=== PATIENT | male | born 1955 | race Caucasian/White ===

== ENCOUNTER 2022-03-13 12:06 | Inpatient (IN) | payer OTHER, SELFPAY ==
[2022-03-13] VITALS (8 sets, daily range): BP systolic 162–193; BP diastolic 68–81; PULSE 75–96; RESP 13–20; TEMP 36.1–37.6; O2SAT 77–96; BMI 41.1
--- NOTE | ~2022-03-13 | XR_ITS ---
EXAMINATION: XR CHEST CLINICAL INFORMATION: Shortness of breath COMPARISON: Previous chest x-ray February 2022 TECHNIQUE: Frontal view of the chest was obtained. FINDINGS: The cardiac silhouette is slightly enlarged but stable. Hilar and mediastinal contours are unremarkable. The lungs are clear. There is no right pleural effusion. There may be a small left pleural effusion. There is no pneumothorax. There is a right jugular dialysis catheter with tip projecting over the SVC. Degenerative changes of the spine. XR/XR chest 1V IMPRESSION: Stable enlargement of the cardiac silhouette. No evidence for acute disease in the chest.
--- NOTE | ~2022-03-13 | XR_ITS ---
EXAMINATION: XR CHEST CLINICAL INFORMATION: Short of breath COMPARISON: None TECHNIQUE: Frontal view of the chest was obtained. FINDINGS: Right-sided central venous catheter overlies the mid SVC. Cardiac leads overlie the chest. The lungs are well expanded. There is no focal consolidation, edema, or effusion. No pneumothorax. The cardiomediastinal silhouette is within normal limits. No acute osseous abnormality. XR/XR chest 1V IMPRESSION: No acute pulmonary disease.
--- NOTE | 2022-03-13 12:26 | ED_ITS ---
HPI - General Adult General Chief complaint: Dyspnea Stated complaint: Diff Breathing Time Seen by Provider: 03/13/22 12:26 Source: patient and EMS Mode of arrival: EMS Limitations: no limitations History of Present Illness HPI narrative: Patient is a 67 year old assigned male at with a history of CKD and right lower leg amputation presenting to the emergency department today with increased difficulty breathing. Patient states that he was getting dialysis through a temporary dialysis port on his right side when 3 weeks ago, they stopped it. 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 Patient states that he has been taking his medications as perscribed. Patient states that he has been having increased shortness of breath. Patient denies any dizziness, lightheadedness, abdominal pain, nausea, vomiting, fever, chills, blurry vision, double vision, loss of vision, chest pain, back pain, night sweats, pain with urination, increased urinary frequency, increased urinary urgency, blood in his urine or stool, syncope or a near syncopal episode, recent trauma or falls, bowel incontinence, bladder incontinence, bowel retention, bladder retention, or any other complaints at this time. Onset (ago): day(s) Severity: moderate Severity scale (1-10): 4 Relieving factors: none Exacerbating factors: none Associated symptoms: shortness of breath Treatments prior to arrival: none Related Data Home Medications Medication Instructions Recorded Confirmed albuterol sulfate 90 mcg/actuation 2 inh inhalation Q4H PRN Wheezing 03/13/22 03/13/22 aerosol inhaler aspirin 81 mg tablet,delayed 1 tab PO DAILY 03/13/22 03/13/22 release atorvastatin 40 mg tablet 1 tab PO DAILY 03/13/22 03/13/22 buprenorphine 10 mcg/hour weekly 1 patch topical QWEEK 03/13/22 03/13/22 transdermal patch carvedilol 25 mg tablet 1 tab PO BID 03/13/22 03/13/22 cetirizine 10 mg tablet 1 tab PO DAILY 03/13/22 03/13/22 cholecalciferol (vitamin D3) 25 1 tab PO DAILY 03/13/22 03/13/22 mcg (1,000 unit) tablet clonidine HCl 0.1 mg tablet 1 tab PO TID 03/13/22 03/13/22 clotrimazole-betamethasone 1 1 appl topical BID 03/13/22 03/13/22 %-0.05 % topical cream dapsone 100 mg tablet 1 tab PO DAILY 03/13/22 03/13/22 duloxetine 30 mg capsule,delayed 1 cap PO DAILY 03/13/22 03/13/22 release ferrous sulfate 325 mg (65 mg 325 mg PO TID 03/13/22 03/13/22 iron) tablet (FeroSul) fluticasone propionate 50 1 spray intranasal DAILY 03/13/22 03/13/22 mcg/actuation nasal spray,suspension hydralazine 25 mg tablet 1 tab PO TID 03/13/22 03/13/22 insulin aspart U-100 100 unit/mL See Rx Instructions .Route .COMPLEX 03/13/22 03/13/22 (3 mL) subcutaneous pen (Novolog Flexpen U-100 Insulin aspart) insulin glargine 100 unit/mL (3 50 unit subcut DAILY 03/13/22 03/13/22 mL) subcutaneous pen (Lantus Solostar U-100 Insulin) ipratropium 0.5 mg-albuterol 3 mg 3 ml inhalation QID 03/13/22 03/13/22 (2.5 mg base)/3 mL nebulization soln isosorbide mononitrate 30 mg 1 tab PO DAILY 03/13/22 03/13/22 tablet,extended release 24 hr multivitamin 1 tab PO DAILY 03/13/22 03/13/22 omeprazole 20 mg capsule,delayed 1 cap PO DAILY 03/13/22 03/13/22 release prednisone 5 mg tablet 12.5 mg PO DAILY 03/13/22 03/13/22 sacubitril 49 mg-valsartan 51 mg 1 tab PO BID 03/13/22 03/13/22 tablet (Entresto) sennosides 8.6 mg-docusate sodium 1 tab PO BEDTIME 03/13/22 03/13/22 50 mg tablet (Senna-S) sitagliptin phosphate 25 mg tablet 1 tab PO DAILY 03/13/22 03/13/22 (Januvia) tamsulosin 0.4 mg capsule 1 cap PO DAILY 03/13/22 03/13/22 torsemide 100 mg tablet 1 tab PO DAILY 03/13/22 03/13/22 Allergies Allergy/AdvReac Type Severity Reaction Status Date / Time Unable to Assess Allergy Verified 03/13/22 12:27 Review of Systems Constitutional: Constitutional: Reports no additional constitutional complaints, Denies chills, Denies fever(s) and Denies night sweats Eyes: Eyes: Reports no additional eye complaints, Denies blurry vision, Denies change in vision, Denies diplopia, Denies eye discharge, Denies loss of vision and Denies eye pain ENT: Denies dizziness Cardiovascular: Cardiovascular: Reports no additional cardiovascular complaints, Denies chest pain, Denies lightheadedness, Denies Loss of Consciousness and Reports dyspnea Respiratory: Respiratory: Reports no additional respiratory complaints and Reports dyspnea Gastrointestinal: Gastrointestinal: Reports no additional gastrointestinal complaints, Denies abdominal pain, Denies melena, Denies hematochezia, Denies change in bowel habits and Denies change in stool character Genitourinary: Genitourinary: Reports no additional male genitourinary complaints, Denies hematuria, Denies oliguria, Denies difficulty urinating, Denies dysuria, Denies urinary frequency, Denies urinary hesitancy, Denies urinary incontinence and Denies urinary urgency Musculoskeletal: Musculoskeletal: Reports no additional musculoskeletal complaints, Denies numbness and Denies tingling Comments: right lower leg amputation Neurologic: Denies dizziness, Denies loss of vision, Denies numbness and Denies tingling Psychiatric: Psychiatric: Reports no additional psychiatric complaints Endocrine: Endocrine: Reports no additional endocrine complaints Hematologic/Lymphatic: Hematologic/Lymphatic: Reports no additional hematologic/lymphatic complaints Allergic/Immunologic: Allergic/Immunologic: Reports no additional allergic/immunologic complaints PMFSH Past Medical History Attestation statement: The following information was validated with the patient. Source: old records reviewed and nursing notes reviewed Medical History (Updated 03/13/22 @ 17:32 by DAWNA Gibbs) Amputated right leg CVA (cerebral vascular accident) Diabetes mellitus HFrEF (heart failure with reduced ejection fraction) History of benign adrenal tumor History of cocaine abuse History of COVID-19 Hypertension Low back pain Nonischemic cardiomyopathy Obstructive sleep apnea syndrome Psoriasis Tobacco dependence Surgical History (Updated 03/13/22 @ 16:39 by Wallace Fischer MD) H/O partial adrenalectomy Status post Elise procedure Family History Family History (Updated 03/13/22 @ 17:26 by Wallace Fischer MD) Father Myocardial infarction Social History Social History Alcohol intake: unknown Smoked in Last 30 Days: No Use of substances other than those prescribed or required for medical reasons: No Advance Directives: No Advance Directives Information Provided: Yes Physical Exam ED Vital Signs: Vital Signs - 24 hr 03/13/22 12:21 03/13/22 12:54 03/13/22 13:02 Temperature 99.6 F 99.0 F Pulse Rate 83 88 Respiratory Rate 18 16 17 Blood Pressure 162/75 H 162/75 H Pulse Oximetry 91 L 91 L Oxygen Delivery Method Room Air Room Air Oxygen Flow Rate 03/13/22 15:00 Temperature Pulse Rate 78 Respiratory Rate 16 Blood Pressure 162/80 H Pulse Oximetry 94 Oxygen Delivery Method Nasal Cannula Oxygen Flow Rate 1 BMI result Body Mass Index 41.1 Const General: cooperative, no acute distress, alert and awake Nutritional Appearance: well nourished Orientation/consciousness: patient oriented x3 Limitations: no limitations HENMT Head: Yes normal to inspection and Yes atraumatic Ears: hearing grossly normal bilaterally and external ears normal General nose exam: Normal external nose present, no nasal discharge noted and no epistaxis Face and sinus: Yes normal facial exam, No abrasion and No laceration Mouth: Normal oral and palatal mucosa present, no drooling and no muffled voice Eyes General: appearance normal, both eyes and all related structures Periorbital: periorbital findings normal Eyelids: Yes eyelids normal Conjunctivae: conjunctivae normal Pupils: Equal, round and reactive pupils present EOM: EOMs intact bilaterally Neck Neck: Yes normal visual inspection, Yes full ROM and Yes no lymphadenopathy Chest Chest palpation & inspection: normal inspection of the chest Resp Effort & Inspection: able to speak in complete sentences and labored Auscultation: rhonchi throughout Cardio Rate: regular rate Rhythm: regular rhythm GI Inspection: Yes normal to inspection Palpation (GI): Soft to palpation, not firm, nontender, no guarding and not rigid Neuro General: patient oriented x3 and moves all extremities Cranial nerves: Yes Equal, round and reactive pupils present Cognition (Neuro): normal cognition Motor exam (neuro): 5/5 motor strength present throughout Sensory Exam: Normal double simultaneous stimulation for sensation Coordination: [id number] test normal Extrem Other: patient has right below knee amputation Psych Appearance: grossly normal Mental Status: mental status grossly normal Affect: normal affect Attitude: cooperative Thought process: Normal thought process present Thought content: Normal thought content present Insight: Good insight present (Psych) Medications Administered Discontinued Medications Generic Name Dose Route Start Last Admin Trade Name Crow PRN Reason Stop Dose Admin Acetaminophen 650 mg 03/13/22 12:27 03/13/22 14:45 Acetaminophen 325 Mg Tablet PO 03/13/22 12:28 Not Given ONCE ONE Furosemide 60 mg 03/13/22 12:32 03/13/22 13:17 Furosemide 100 Mg/10 Ml Vial IVPUSH 03/13/22 12:33 60 mg ONCE ONE Administration Protocol Medical Decision Making Medical Decision Making MDM Narrative: Patient is a 67 year old assigned male at with a history of CKD presenting to the emergency department today with shortness of breath. Patient's physical exam showed an individual in mild respiratory distress with diffuse rhonci. Patient's blood work showed an elevated d dimer of 605, an elevated initial troponin of 74.4 with a repeat of 70.7, an elevated CR of 2.78, and an elevated BUN of 48. Patient's EKG was unremarkable. Patient's chest x-ray and VQ scan showed no acute process. Patient was initially placed on BiPaP and after 1 hour, he was doing significantly better. Patient was placed on 2LPM via NC. Patient was given IV lasix. I spoke to the hospitalist team who agreed to admission. I explained my physical exam findings as well as all test results to the patient. I answered all questions asked by the patient. Patient verbalized agreement and understanding with this treatment plan and admission. Differential Diagnosis Differential Diagnoses: The differential diagnosis associated with the presentation includes CHF exacerbation, SOB Consult Healthcare Provider Management of the patient was discussed with: Hospitalist (agreed to admission) Lab Data [facility] Lab Attestation statement: I reviewed the patient's lab results. Result Diagrams: 03/13/22 13:03 03/13/22 13:03 Labs: Lab Results 03/13/22 03/13/22 03/13/22 Range/Units 12:44 13:02 13:03 WBC 9.8 (4.8-10.8) X10*3/uL RBC 3.16 L (4.60-5.80) X10*6/uL Hgb 9.5 L (14.0-18.0) g/dl Hct 29.8 L (42.0-52.0) % MCV 94.3 (80.0-98.0) fL MCH 30.1 (27.0-33.0) pg MCHC 31.9 (31.0-36.0) g/dl RDW 14.9 (11.0-16.0) % Plt Count 196 (160-400) X10*3/uL MPV 11.8 (9.4-12.4) fL Immature Gran % (Auto) 0.8 H (0.0-0.4) % Neut % (Auto) 86.1 H (45-73) % Lymph % (Auto) 7.2 L (20-40) % [place] % (Auto) 5.6 (2-11) % Eos % (Auto) 0.0 (0-4) % Baso % (Auto) 0.3 (0-2) % Lymph # (Auto) 0.7 L (1.2-4.9) X10*3/uL [place] # (Auto) 0.6 (0.1-1.2) X10*3/uL Eos # (Auto) 0.0 (0.0-0.4) X10*3/uL Baso # (Auto) 0.0 (0.0-0.2) X10*3/uL Abs Immat Gran (auto) 0.08 H (0.00-0.03) X10*3/uL Absolute Neuts (auto) 8.5 H (2.0-8.3) x10*3/uL Absolute Nucleated RBC 0.000 (0.0-0.012) X10*3/uL Nucleated RBC % (auto) 0.0 (0.0-0.2) /100WBC D-Dimer High Sensitivty NG/ML VBG pH (7.32-7.43) VBG pCO2 mmHg VBG pO2 mmHg VBG HCO3 (22-26) mmol/L VBG O2 Saturation % VBG Base Excess mmol/L Sodium (135-145) mmol/L Potassium (3.3-5.1) mmol/L Chloride (96-108) mmol/L Carbon Dioxide (22-29) mmol/L Anion Gap (12-20) BUN (9-16) mg/dL Creatinine (0.5-1.4) mg/dL Estim Creat Clear Calc Estimated GFR Random Glucose (60-115) mg/dL Lactic Acid 1.6 (0.5-2.0) mmol/L Calcium (8.4-10.2) mg/dL Total Bilirubin (0.0-1.0) mg/dL AST (5-37) U/L ALT (0-40) U/L Alkaline Phosphatase (39-117) U/L Troponin I High Sens (<3.5-35.0) ng/L B-Natriuretic Peptide (<100) pg/mL Total Protein (6.5-8.0) g/dL Albumin (3.5-5.0) g/dL Influenza Type A (PCR) NEGATIVE (Negative) Influenza Type B (PCR) NEGATIVE (Negative) RSV RNA Qual (PCR) NEGATIVE (Negative) SARS-CoV-2 RNA (RT-PCR) NEGATIVE (Negative) 03/13/22 03/13/22 03/13/22 Range/Units 13:03 13:03 13:04 WBC (4.8-10.8) X10*3/uL RBC (4.60-5.80) X10*6/uL Hgb (14.0-18.0) g/dl Hct (42.0-52.0) % MCV (80.0-98.0) fL MCH (27.0-33.0) pg MCHC (31.0-36.0) g/dl RDW (11.0-16.0) % Plt Count (160-400) X10*3/uL MPV (9.4-12.4) fL Immature Gran % (Auto) (0.0-0.4) % Neut % (Auto) (45-73) % Lymph % (Auto) (20-40) % [place] % (Auto) (2-11) % Eos % (Auto) (0-4) % Baso % (Auto) (0-2) % Lymph # (Auto) (1.2-4.9) X10*3/uL [place] # (Auto) (0.1-1.2) X10*3/uL Eos # (Auto) (0.0-0.4) X10*3/uL Baso # (Auto) (0.0-0.2) X10*3/uL Abs Immat Gran (auto) (0.00-0.03) X10*3/uL Absolute Neuts (auto) (2.0-8.3) x10*3/uL Absolute Nucleated RBC (0.0-0.012) X10*3/uL Nucleated RBC % (auto) (0.0-0.2) /100WBC D-Dimer High Sensitivty 369 NG/ML VBG pH (7.32-7.43) VBG pCO2 mmHg VBG pO2 mmHg VBG HCO3 (22-26) mmol/L VBG O2 Saturation % VBG Base Excess mmol/L Sodium 144 (135-145) mmol/L Potassium 3.7 (3.3-5.1) mmol/L Chloride 104 (96-108) mmol/L Carbon Dioxide 29 (22-29) mmol/L Anion Gap 15 (12-20) BUN 48 H (9-16) mg/dL Creatinine 2.79 H (0.5-1.4) mg/dL Estim Creat Clear Calc 30.5 Estimated GFR 23 Random Glucose 154 H (60-115) mg/dL Lactic Acid (0.5-2.0) mmol/L Calcium 9.2 (8.4-10.2) mg/dL Total Bilirubin 0.3 (0.0-1.0) mg/dL AST 12 (5-37) U/L ALT 14 (0-40) U/L Alkaline Phosphatase 69 (39-117) U/L Troponin I High Sens 74.4 H (<3.5-35.0) ng/L B-Natriuretic Peptide (<100) pg/mL Total Protein 6.1 L (6.5-8.0) g/dL Albumin 3.3 L (3.5-5.0) g/dL Influenza Type A (PCR) (Negative) Influenza Type B (PCR) (Negative) RSV RNA Qual (PCR) (Negative) SARS-CoV-2 RNA (RT-PCR) (Negative) 03/13/22 03/13/22 03/13/22 Range/Units 13:05 13:09 15:13 WBC (4.8-10.8) X10*3/uL RBC (4.60-5.80) X10*6/uL Hgb (14.0-18.0) g/dl Hct (42.0-52.0) % MCV (80.0-98.0) fL MCH (27.0-33.0) pg MCHC (31.0-36.0) g/dl RDW (11.0-16.0) % Plt Count (160-400) X10*3/uL MPV (9.4-12.4) fL Immature Gran % (Auto) (0.0-0.4) % Neut % (Auto) (45-73) % Lymph % (Auto) (20-40) % [place] % (Auto) (2-11) % Eos % (Auto) (0-4) % Baso % (Auto) (0-2) % Lymph # (Auto) (1.2-4.9) X10*3/uL [place] # (Auto) (0.1-1.2) X10*3/uL Eos # (Auto) (0.0-0.4) X10*3/uL Baso # (Auto) (0.0-0.2) X10*3/uL Abs Immat Gran (auto) (0.00-0.03) X10*3/uL Absolute Neuts (auto) (2.0-8.3) x10*3/uL Absolute Nucleated RBC (0.0-0.012) X10*3/uL Nucleated RBC % (auto) (0.0-0.2) /100WBC D-Dimer High Sensitivty NG/ML VBG pH 7.46 H (7.32-7.43) VBG pCO2 39 mmHg VBG pO2 89 mmHg VBG HCO3 28 H (22-26) mmol/L VBG O2 Saturation 95.0 % VBG Base Excess 4.3 mmol/L Sodium (135-145) mmol/L Potassium (3.3-5.1) mmol/L Chloride (96-108) mmol/L Carbon Dioxide (22-29) mmol/L Anion Gap (12-20) BUN (9-16) mg/dL Creatinine (0.5-1.4) mg/dL Estim Creat Clear Calc Estimated GFR Random Glucose (60-115) mg/dL Lactic Acid (0.5-2.0) mmol/L Calcium (8.4-10.2) mg/dL Total Bilirubin (0.0-1.0) mg/dL AST (5-37) U/L ALT (0-40) U/L Alkaline Phosphatase (39-117) U/L Troponin I High Sens 70.7 H (<3.5-35.0) ng/L B-Natriuretic Peptide 605 H (<100) pg/mL Total Protein (6.5-8.0) g/dL Albumin (3.5-5.0) g/dL Influenza Type A (PCR) (Negative) Influenza Type B (PCR) (Negative) RSV RNA Qual (PCR) (Negative) SARS-CoV-2 RNA (RT-PCR) (Negative) Independent Interpretation I performed an independent interpretation of an: EKG Interpretation: Vent. Rate: 076 BPM ? ? Atrial Rate: 076 BPM P-R Int: 140 ms? QRS Dur: 084 ms QT Int: 402 ms ? ? ? P-R-T Axes: 058 018 164 degrees QTc Int: 452 ms ? Normal sinus rhythm T wave abnormality, consider lateral ischemia Abnormal ECG No previous ECGs available DD/ 1311 Radiology Impression Discussion of test interpretation with radiology: I have reviewed the radiolo gist's reading. Radiologist Impression: EXAMINATION: NM LUNG IMAGE PERFUSION CLINICAL INFORMATION: Shortness of breath, dyspnea COMPARISON: Chest x-ray same day TECHNIQUE: Perfusion only lung study. 4 mCi technetium MAA injected intravenously. Images obtained in various obliquities over the lung iqbal. FINDINGS: Fairly uniform uptake of the radionucleotide in the lungs. Only mildly heterogeneous uptake. Diminished uptake on the left mid to anterior is likely cardiac impression NM/NM pul perfusion IMPRESSION: Only mildly heterogeneous uptake without segmental defect. Findings consistent with low probability for pulmonary embolism. Dictated By: Jonathan Pa MD Signed By: Electronically signed by Jonathan Pa MD 03/13/22 [id number] EXAMINATION: XR CHEST CLINICAL INFORMATION: Short of breath COMPARISON: None TECHNIQUE: Frontal view of the chest was obtained. FINDINGS: Right-sided central venous catheter overlies the mid SVC. Cardiac leads overlie the chest. The lungs are well expanded. There is no focal consolidation, edema, or effusion. No pneumothorax. The cardiomediastinal silhouette is within normal limits. No acute osseous abnormality. XR/XR chest 1V IMPRESSION: No acute pulmonary disease. Dictated By: Cole Capps MD Signed By: Electronically signed by Cole Capps MD 03/13/22 1359 Critical Care Time Critical Care Time Critical Care Time: Yes Total Critical Care Time: 30 Attestation: I spent 30 minutes of Critical Care Time with this patient. This does not include time spent on separately reported billable procedures. Discharge Plan Discharge Clinical Impression: CKD (chronic kidney disease), Elevated brain natriuretic peptide (BNP) level, Breath shortness Patient Disposition: Admitted As Inpatient
--- NOTE | 2022-03-13 12:27 | ECG_ITS ---
Test Reason : DYSPNEA Blood Pressure : / mmHG Vent. Rate : 076 BPM Atrial Rate : 076 BPM P-R Int : 140 ms QRS Dur : 084 ms QT Int : 402 ms P-R-T Axes : 058 018 164 degrees QTc Int : 452 ms Normal sinus rhythm T wave abnormality, consider lateral ischemia Abnormal ECG No previous ECGs available Referred By: Ruth Martinez Electronically Signed By:Jose Angel Patterson
[2022-03-13 13:11] LABS: MANUAL DIFF FLAG NO
[2022-03-13 13:12] LABS: Venous Blood Gas Refer to POC result
[2022-03-13 13:15] LABS: VBG Base Excess 4.3 mmol/L; VBG HCO3 28 mmol/L (22-26); VBG pCO2 39 mmHg; VBG pH 7.46 (7.32-7.43); VBG pO2 89 mmHg
[2022-03-13] MEDS: Furosemide 100 MG/10 ML VIAL 60 MG IVPUSH ×2 (13:17→17:51)
[2022-03-13 13:18] LABS: Basophils Percent Auto 0.3 % (0-2); Hematocrit 29.8 % (42.0-52.0); Hemoglobin 9.5 g/dl (14.0-18.0); Imm Gran Abs Auto 0.08 X10*3/uL (0.00-0.03); Imm Gran Pct Auto 0.8 % (0.0-0.4); Lymphocytes Absolute Auto 0.7 X10*3/uL (1.2-4.9); Lymphocytes Percent Auto 7.2 % (20-40); Mean Corpuscular HGB Conc 31.9 g/dl (31.0-36.0); Mean Corpuscular Hemoglobin 30.1 pg (27.0-33.0); Mean Corpuscular Volume 94.3 fL (80.0-98.0); Mean Platelet Volume 11.8 fL (9.4-12.4); Monocytes Absolute Auto 0.6 X10*3/uL (0.1-1.2); Monocytes Percent Auto 5.6 % (2-11); Neutrophils Absolute Auto 8.5 x10*3/uL (2.0-8.3); Neutrophils Percent Auto 86.1 % (45-73); Platelet Count 196 X10*3/uL (160-400); Red Blood Count 3.16 X10*6/uL (4.60-5.80); Red Cell Distribution Width 14.9 % (11.0-16.0); White Blood Count 9.8 X10*3/uL (4.8-10.8)
[2022-03-13 13:23] LABS: D Dimer High Sensitivity 369 NG/ML
[2022-03-13 13:30] LABS: Lactic Acid 1.6 mmol/L (0.5-2.0)
[2022-03-13 13:31] LABS: Alanine Aminotransferase 14 U/L (0-40); Albumin Level 3.3 g/dL (3.5-5.0); Alkaline Phosphatase 69 U/L (39-117); Anion Gap 15 (12-20); Aspartate Amino Transferase 12 U/L (5-37); Bilirubin Total 0.3 mg/dL (0.0-1.0); Blood Urea Nitrogen 48 mg/dL (9-16); Calcium 9.2 mg/dL (8.4-10.2); Carbon Dioxide 29 mmol/L (22-29); Chloride 104 mmol/L (96-108); Creatinine Clr Calc Pharmacy 30.5; Estimated Glomerular Filt Rate 23; Glucose Random 154 mg/dL (60-115); Potassium 3.7 mmol/L (3.3-5.1); Sodium 144 mmol/L (135-145); Total Protein 6.1 g/dL (6.5-8.0)
[2022-03-13 13:33] LABS: Influenza A PCR NEGATIVE (Negative); Influenza B PCR NEGATIVE (Negative); Resp Syncy Virus RNA Qual PCR NEGATIVE (Negative); SARS COV2 PCR INHOUSE NEGATIVE (Negative)
--- NOTE | 2022-03-13 13:35 | PC.NURSE ---
patient lethargic, c/o shortness of breath with no obvious signs of increased WOB. reports he has not had dialysis in three weeks. placed on BiPAP and given IVP lasix. will continue to monitor resp status.
[2022-03-13 13:40] LABS: Troponin-I High Sensitivity 74.4 ng/L (<3.5-35.0)
[2022-03-13 14:15] LABS: B Type Natriuretic Peptide 605 pg/mL (<100)
--- NOTE | 2022-03-13 15:24 | PHA.MEDREC ---
Pharmacy Consult ? Medication Reconciliation Pharmacy has completed the medication reconciliation.
--- OUTSIDE RECORDS SUMMARY | 2022-03-13 15:30 | XMS_ITS | Continuity of Care Document ---
:1955 Demographics Address [address] [place] [address]
--- NOTE | 2022-03-13 15:41 | PC.NURSE ---
report received from SELINA Cole. Pt is currently resting on stretcher satting 94% on 1 liter nasal cannula. Pt reports his breathing has improved since arriving but he does not feel he is at his baseline. awaiting second troponin at this time
[2022-03-13 15:47] LABS: Troponin-I High Sensitivity 70.7 ng/L (<3.5-35.0)
--- NOTE | 2022-03-13 16:38 | PM.IMHP ---
History of Present Illness Date of Service: 03/13/22 Chief Complaint: dyspnea 67yo M with HTN, HFrEF, NICM, DM2, DM foot infection s/p R BKA, hx CVA, BLANCO not on CPAP, and psoriasis. He was on HD for approximately 2 months and this was stopped 3 weeks ago. His primary octave board assembler is Haroldo Carreno at [facility] [facility]. He presents to the ED today with 2-3 days of worsening dyspnea along with leg swelling and abdominal swelling. In the ED, he was struggling to breathe and was thus placed on BiPAP for one hour. Initial SaO2 was 91%. He is currently on 1L of O2 via NC and SaO2 is 95%. He was given 60 mg of IV furosemide. V/Q scan showed low probability for pulmonary embolism. BUN/Cr was 48/2.79. BNP 605. He denies fever, cough, productive sputum, or chest pain. He has been adherent with his CHF medications, including bumetanide, Entresto, and carvedilol. Review of Systems Review of Systems: Yes all other systems are reviewed and are negative FOR[facility]LY [facility], [facility] Medical History Amputated right leg CVA (cerebral vascular accident) Diabetes mellitus HFrEF (heart failure with reduced ejection fraction) History of benign adrenal tumor History of cocaine abuse History of COVID-19 Hypertension Low back pain Nonischemic cardiomyopathy Obstructive sleep apnea syndrome Psoriasis Tobacco dependence Family History Father Myocardial infarction Surgical History H/O partial adrenalectomy Status post Elise procedure Social History Alcohol intake: unknown Smoked in Last 30 Days: No Use of substances other than those prescribed or required for medical reasons: No Advance Directives: No Advance Directives Information Provided: Yes Meds Allergies Allergy/AdvReac Type Severity Reaction Status Date / Time Unable to Assess Allergy Verified 03/13/22 12:27 Active Medications: Current Medications Albuterol Sulfate (Albuterol Sulfate 90 Mcg 8 Gm Inhaler) 2 puff INHALE Q4H PRN PRN Reason: Wheezing Albuterol/Ipratropium (Albuterol/Iprat 2.5/0.5mg 3 Ml Ampul.Neb) 3 ml INHALE QID [facility] Aspirin (Aspirin Enteric Coated 81 Mg Tablet.) 81 mg PO DAILY [facility] Atorvastatin Calcium (Atorvastatin Calcium 40 Mg Tablet) 40 mg PO DAILY [facility] Carvedilol (Carvedilol 25 Mg Tablet) 25 mg PO BID [facility]; Protocol Clonidine HCl (Clonidine Hcl 0.1 Mg Tablet) 0.1 mg PO TID [facility]; Protocol Dapsone (Dapsone 25 Mg Tablet) 100 mg PO DAILY [facility] Dextrose (Dextrose 50 % 25 Gm/50 Ml Syringe) 25 gm IVPUSH Q15M PRN; Protocol PRN Reason: per Hypoglycemia Standing Ord. Duloxetine HCl (Duloxetine Hcl 30 Mg Capsule.) 30 mg PO DAILY [facility] Fluticasone Propionate (Fluticasone Propionate Nasal 16 Gm [place]) 1 spray NOSTRIL-B DAILY [facility] Glucose (Glucose Gel 15 Gm Gel..Gram.) 15 gm PO Q15M PRN; Protocol PRN Reason: per Hypoglycemia Standing Ord. Hydralazine HCl (Hydralazine Hcl 25 Mg Tablet) 25 mg PO TID [facility]; Protocol Insulin Glargine (Insulin Glargine,Hum.Rec.Anlog 100 Unit/Ml 10 Ml Vial) 50 unit SUBCUT DAILY [facility] Insulin Human Lispro (Insulin Lispro 100 Unit/Ml 3 Ml Vial) 0 unit SUBCUT QIDACHS [facility]; Protocol Isosorbide Mononitrate (Isosorbide Mononitrate 30 Mg Tab.Er.24h) 30 mg PO DAILY [facility]; Protocol Loratadine (Loratadine 10 Mg Tablet) 10 mg PO DAILY [facility] Multivitamins/Vitamin C (Multivitamin Tablet) 1 tab PO DAILY [facility] Non-Formulary Medication (Buprenorphine) 1 patch TOPICAL QWEEK [facility] Non-Formulary Medication (Clotrimazole-Betamethasone) 1 appl TOPICAL BID [facility] Non-Formulary Medication (Ferrous Sulfate [Ferosul]) 325 mg PO TID [facility] Omeprazole (Omeprazole 20 Mg Capsule.) 20 mg PO DAILY [facility] Pharmacy Consult (Consult Rx Perform Med Rec) 1 each MISCELLANE ONCE PRN PRN Reason: probable admission Prednisone (Prednisone 2.5 Mg Tablet) 12.5 mg PO DAILY [facility] Sacubitril/Valsartan (Sacubitril/Valsartan 49/51 1 Tab Tablet) 1 tab PO BID [facility]; Protocol Senna/Docusate Sodium (Sennosides/Docusate Sodium Tablet) 1 tab PO BEDTIME [facility] Sitagliptin Phosphate (Sitagliptin Phosphate 25 Mg Tablet) 25 mg PO DAILY [facility] Tamsulosin HCl (Tamsulosin Hcl 0.4 Mg Capsule) 0.4 mg PO DAILY [facility] Torsemide (Torsemide 20 Mg Tablet) 100 mg PO DAILY [facility]; Protocol Vitamin D (Cholecalciferol (Vitamin D3) 25 Mcg Tablet) 25 mcg PO DAILY [facility] Home Medications Medication Instructions Recorded Confirmed Last Taken Type albuterol sulfate 90 mcg/actuation 2 inh inhalation Q4H PRN Wheezing 03/13/22 03/13/22 Unknown History aerosol inhaler aspirin 81 mg tablet,delayed 1 tab PO DAILY 03/13/22 03/13/22 Unknown History release atorvastatin 40 mg tablet 1 tab PO DAILY 03/13/22 03/13/22 Unknown History buprenorphine 10 mcg/hour weekly 1 patch topical QWEEK 03/13/22 03/13/22 Unknown History transdermal patch carvedilol 25 mg tablet 1 tab PO BID 03/13/22 03/13/22 Unknown History cetirizine 10 mg tablet 1 tab PO DAILY 03/13/22 03/13/22 Unknown History cholecalciferol (vitamin D3) 25 1 tab PO DAILY 03/13/22 03/13/22 Unknown History mcg (1,000 unit) tablet clonidine HCl 0.1 mg tablet 1 tab PO TID 03/13/22 03/13/22 Unknown History clotrimazole-betamethasone 1 1 appl topical BID 03/13/22 03/13/22 Unknown History %-0.05 % topical cream dapsone 100 mg tablet 1 tab PO DAILY 03/13/22 03/13/22 Unknown History duloxetine 30 mg capsule,delayed 1 cap PO DAILY 03/13/22 03/13/22 Unknown History release ferrous sulfate 325 mg (65 mg 325 mg PO TID 03/13/22 03/13/22 Unknown History iron) tablet (FeroSul) fluticasone propionate 50 1 spray intranasal DAILY 03/13/22 03/13/22 Unknown History mcg/actuation nasal spray,suspension hydralazine 25 mg tablet 1 tab PO TID 03/13/22 03/13/22 Unknown History insulin aspart U-100 100 unit/mL See Rx Instructions .Route .COMPLEX 03/13/22 03/13/22 Unknown History (3 mL) subcutaneous pen (Novolog Flexpen U-100 Insulin aspart) insulin glargine 100 unit/mL (3 50 unit subcut DAILY 03/13/22 03/13/22 Unknown History mL) subcutaneous pen (Lantus Solostar U-100 Insulin) ipratropium 0.5 mg-albuterol 3 mg 3 ml inhalation QID 03/13/22 03/13/22 Unknown History (2.5 mg base)/3 mL nebulization soln isosorbide mononitrate 30 mg 1 tab PO DAILY 03/13/22 03/13/22 Unknown History tablet,extended release 24 hr multivitamin 1 tab PO DAILY 03/13/22 03/13/22 Unknown History omeprazole 20 mg capsule,delayed 1 cap PO DAILY 03/13/22 03/13/22 Unknown History release prednisone 5 mg tablet 12.5 mg PO DAILY 03/13/22 03/13/22 Unknown History sacubitril 49 mg-valsartan 51 mg 1 tab PO BID 03/13/22 03/13/22 Unknown History tablet (Entresto) sennosides 8.6 mg-docusate sodium 1 tab PO BEDTIME 03/13/22 03/13/22 Unknown History 50 mg tablet (Senna-S) sitagliptin phosphate 25 mg tablet 1 tab PO DAILY 03/13/22 03/13/22 Unknown History (Januvia) tamsulosin 0.4 mg capsule 1 cap PO DAILY 03/13/22 03/13/22 Unknown History torsemide 100 mg tablet 1 tab PO DAILY 03/13/22 03/13/22 Unknown History Physical Exam Vital Signs and Narrative: Vital Signs: Last Vital Signs Temp 99.0 F 03/13/22 12:54 Pulse 78 03/13/22 15:00 Resp 16 03/13/22 15:00 BP 162/80 H 03/13/22 15:00 Pulse Ox 94 03/13/22 15:00 O2 Del Method 03/13/22 15:00 O2 Flow Rate 1 03/13/22 15:00 BMI result Body Mass Index 41.1 Gen: in no acute distress HEENT: sclera anicteric, moist mucus membranes Neck: supple Lungs: clear to auscultation bilaterally Heart: regular rate and rhythm, no murmurs Abd: soft, non-tender, distended, morbidly obese Ext: 3+ LLE edema, s/p R BKA Skin: warm/well-perfused Neuro: alert and oriented x3, no focal findings Psych: appropriate affect Results Labs CBC and Chem 7: 03/13/22 13:03 03/13/22 13:03 Labs: Laboratory Results - last 24 hr 03/13/22 03/13/22 03/13/22 12:44 13:02 13:03 MCV 94.3 MCH 30.1 MCHC 31.9 RDW 14.9 Plt Count 196 MPV 11.8 Immature Gran % (Auto) 0.8 H Neut % (Auto) 86.1 H Lymph % (Auto) 7.2 L Wells % (Auto) 5.6 Eos % (Auto) 0.0 Baso % (Auto) 0.3 Lymph # (Auto) 0.7 L Wells # (Auto) 0.6 Eos # (Auto) 0.0 Baso # (Auto) 0.0 Abs Immat Gran (auto) 0.08 H Absolute Neuts (auto) 8.5 H Absolute Nucleated RBC 0.000 Nucleated RBC % (auto) 0.0 D-Dimer High Sensitivty VBG pH VBG pCO2 VBG pO2 VBG HCO3 VBG O2 Saturation VBG Base Excess Anion Gap Estim Creat Clear Calc Estimated GFR Random Glucose Lactic Acid 1.6 Calcium Total Bilirubin AST ALT Alkaline Phosphatase Troponin I High Sens B-Natriuretic Peptide Total Protein Albumin Influenza Type A (PCR) NEGATIVE Influenza Type B (PCR) NEGATIVE RSV RNA Qual (PCR) NEGATIVE SARS-CoV-2 RNA (RT-PCR) NEGATIVE 03/13/22 03/13/22 03/13/22 13:03 13:03 13:04 MCV MCH MCHC RDW Plt Count MPV Immature Gran % (Auto) Neut % (Auto) Lymph % (Auto) Wells % (Auto) Eos % (Auto) Baso % (Auto) Lymph # (Auto) Wells # (Auto) Eos # (Auto) Baso # (Auto) Abs Immat Gran (auto) Absolute Neuts (auto) Absolute Nucleated RBC Nucleated RBC % (auto) D-Dimer High Sensitivty 369 VBG pH VBG pCO2 VBG pO2 VBG HCO3 VBG O2 Saturation VBG Base Excess Anion Gap 15 Estim Creat Clear Calc 30.5 Estimated GFR 23 Random Glucose 154 H Lactic Acid Calcium 9.2 Total Bilirubin 0.3 AST 12 ALT 14 Alkaline Phosphatase 69 Troponin I High Sens 74.4 H B-Natriuretic Peptide Total Protein 6.1 L Albumin 3.3 L Influenza Type A (PCR) Influenza Type B (PCR) RSV RNA Qual (PCR) SARS-CoV-2 RNA (RT-PCR) 03/13/22 03/13/22 03/13/22 13:05 13:09 15:13 MCV MCH MCHC RDW Plt Count MPV Immature Gran % (Auto) Neut % (Auto) Lymph % (Auto) Wells % (Auto) Eos % (Auto) Baso % (Auto) Lymph # (Auto) Wells # (Auto) Eos # (Auto) Baso # (Auto) Abs Immat Gran (auto) Absolute Neuts (auto) Absolute Nucleated RBC Nucleated RBC % (auto) D-Dimer High Sensitivty VBG pH 7.46 H VBG pCO2 39 VBG pO2 89 VBG HCO3 28 H VBG O2 Saturation 95.0 VBG Base Excess 4.3 Anion Gap Estim Creat Clear Calc Estimated GFR Random Glucose Lactic Acid Calcium Total Bilirubin AST ALT Alkaline Phosphatase Troponin I High Sens 70.7 H B-Natriuretic Peptide 605 H Total Protein Albumin Influenza Type A (PCR) Influenza Type B (PCR) RSV RNA Qual (PCR) SARS-CoV-2 RNA (RT-PCR) Imaging Radiologist's Impressions: Impressions Chest X-Ray 03/13/22 13:35 IMPRESSION: No acute pulmonary disease. Pulmonary Perfusion Imaging 03/13/22 14:35 IMPRESSION: Only mildly heterogeneous uptake without segmental defect. Findings consistent with low probability for pulmonary embolism. Assessment and Plan (1) HFrEF (heart failure with reduced ejection fraction): Status: Acute (2) Nonischemic cardiomyopathy: Status: Acute Plan 67yo M with HTN, HFrEF, NICM, DM2, DM foot infection s/p R BKA, hx CVA, BLANCO not on CPAP, and psoriasis. Recently on HD for 2 mo but taken off 3 wk ago presumably due to renal recovery. Presenting with 2 days of dyspnea + edema, found to be in acute respiratory distress due to volume overload. # acute respiratory failure due to acute/chronic HFrEF - admit to IMC, diurese with IV furosemide, consult Cardiology, update TTE, monitor I/O + BMP/BNP/Mg, continue neurohormonal modulation with Entresto + carvedilol + Imdur/hydralazine # CKD, recent HD - Nephrology consult # anemia of CKD - iron supplementation # HTN - continue Entresto, carvedilol, clonidine, hydralazine, Imdur # DM2 - basal/bolus insulin # psoriasis - continue dapsone + prednisone # VTE ppx: UFH # code status: full I anticipate that the patient will stay at least 2 midnights as an inpatient in the hospital due to the above reasons. It is neither reasonable nor safe to care for them in a less acute setting. Time Spent With Patient Time: Total time managing care of this patient today ____ minutes. Quality Stroke Does the patient have a stroke diagnosis?: No VTE Prior VTE?: No VTE Risk Level:: Medical - moderate - high VTE Device Contraindication: N/A - Device Ordered VTE Drug Contraindication: N/A - Med Ordered
--- OUTSIDE RECORDS SUMMARY | 2022-03-13 17:22 | XMS_ITS | Encounter Summary ---
:1955 Author Care Team Providers Name Role Phone [facility] Referring Provider [phone] Reason for Visit Medication Related Assessment and Plan 1. Chronic kidney disease plan for direct admit to hospital ayo leos for question of HD need. Getting
[2022-03-13] MEDS: Heparin Sodium,Porcine 5,000 UNIT/ML VIAL 5000 UNIT SUBCUT (17:51)
[2022-03-13] MEDS: Tamsulosin HCL 0.4 MG CAPSULE PO (17:51)
--- NOTE | 2022-03-13 18:27 | PC.NURSE ---
Pt awaiting bed assignment at this time. Drained downs bag of 600mL of urine
[2022-03-13] MEDS: Albuterol/Iprat 2.5/0.5MG 3 ML AMPUL.NEB INHALE (19:43)
--- NOTE | 2022-03-13 20:04 | PC.NURSE ---
Pt provided with dinner, sitting up and eating with no assistance necessary. Pt reports 1/10 generalized pain
--- NOTE | 2022-03-13 20:50 | PC.NURSE ---
Missing entresto and Mycolog cream, called pharmacy, awaiting medications at this time
--- NOTE | 2022-03-13 20:53 | MHC.CM.PN ---
Addendum entered by Niki Garcia 03/13/22 21:14: Patient tells CM that his 2 VISUAL SUPERVISOR's are aware that he is being admitted to hospital. Home [facility] contacted via [facility] and requested to follow patient for discharge. Original Note: IMM 03/11. Met with admitted patient with bed assignment pending. A&Ox3. Lives alone. CCA. Has VISUAL SUPERVISOR's/ 39.5 hours M-F and 14 hours Sat/Sun. Services provided by [facility]. Has [facility] through Home Care- nursing 3 times/week. Nurse is Maddison Wells LPN ([phone]). Declines HCP. Has family, but pt states they don't care about me. Pt uses a w/c, walker, nebulizer and DM supplies. Right Leg amputee. Pt is getting a new prosthesis. CKD- Nephrology Dr. Monet. Pt did have dialysis for 2 months, but states his doctor stopped it 3 weeks ago. States he had dialysis in [place]. Pt is a , but has no veterans services and is not vet connected. Pt has BLANCO, but no CPAP. Pt is refusing any STR and d/c plan is home with continued services. Pt will need a chair van home. CM will follow for discharge planning.
[2022-03-13] MEDS: hydrALAZINE HCl 25 MG TABLET PO (20:54)
[2022-03-13] MEDS: cloNIDine HCL 0.1 MG TABLET PO (20:54)
[2022-03-13] MEDS: Sennosides/Docusate Sodium TABLET 1 TAB PO (20:55)
[2022-03-13] MEDS: carvediloL 25 MG TABLET PO (20:55)
[2022-03-13] MEDS: Nystatin/Triamcinolone Cream 15 GM TUBE 1 APPL TOPICAL (20:59)
[2022-03-13] MEDS: Sacubitril/Valsartan 49/51 1 TAB TABLET PO (20:59)
[2022-03-13] MEDS: Insulin Lispro 100 UNIT/ML 3 ML VIAL SUBCUT (21:06)
--- NOTE | 2022-03-13 21:11 | PC.NURSE ---
Pt moved into hospital bed for comfort. Pt tolerated move fairly, initially out of breath moving into bed however he recovered quickly. VSS. All night medications were administered with no issue. POC glucose elevated at 390, 12 units sliding scale insulin administered per MAY, Dr. Watson notified via tiger text, no new orders at this time
--- NOTE | 2022-03-13 23:03 | PC.NURSE ---
report has been called, awaiting transport up to floor at this time
[2022-03-14] VITALS (11 sets, daily range): BP systolic 127–156; BP diastolic 60–91; PULSE 69–80; RESP 16–20; TEMP 36.4–37; O2SAT 90–95; BMI 41.5
[2022-03-14 06:28] LABS: Hematocrit 26.6 % (42.0-52.0); Hemoglobin 8.3 g/dl (14.0-18.0); Mean Corpuscular HGB Conc 31.2 g/dl (31.0-36.0); Mean Corpuscular Hemoglobin 29.5 pg (27.0-33.0); Mean Corpuscular Volume 94.7 fL (80.0-98.0); Mean Platelet Volume 12.4 fL (9.4-12.4); Platelet Count 164 X10*3/uL (160-400); Red Blood Count 2.81 X10*6/uL (4.60-5.80); Red Cell Distribution Width 14.9 % (11.0-16.0); White Blood Count 6.4 X10*3/uL (4.8-10.8)
[2022-03-14] MEDS: Heparin Sodium,Porcine 5,000 UNIT/ML VIAL 5000 UNIT SUBCUT ×2 (06:40→16:16)
[2022-03-14] MEDS: Omeprazole 20 MG CAPSULE.DR PO (06:40)
[2022-03-14 06:41] LABS: B Type Natriuretic Peptide 280 pg/mL (<100)
--- NOTE | 2022-03-14 07:00 | CA_ITS ---
Transthoracic Echocardiogram Patient (Last, First, Middle): Joo Gonzales, Gender: Male Date of : 1955 Age: 67 Procedure Date: 03/14/2022 Procedure Type: Transthoracic Echocardiogram Location: [facility] [place] Height: 165.1 cm Weight: 113.4 kg BSA: 2.17 m2 Heart Rate: 75 bpm BP: 148 / 91 mmHg Shank Sander: SB Referring MD: Wallace Fischer MD Symptoms: hf and ef, vol overload Study Quality: Adequate w contrast ECG Rhythm: Sinus Conclusions: - Normal left ventricular cavity size. There is severely increased left ventricular wall thickness. The left ventricular systolic function is normal. The visually estimated ejection fraction is between 60-65%. - Normal right ventricular cavity size and systolic function. Findings Procedure Information Contrast agent, definity, is being given per protocol without apparent complications. Left Ventricle Normal left ventricular cavity size. There is severely increased left ventricular wall thickness. The left ventricular systolic function is normal. The visually estimated ejection fraction is between 60-65%. Abnormal diastolic function is noted. Spectral Doppler is indicative of an impaired relaxation filling pattern. Elevated filling pressures. Right Ventricle Normal right ventricular cavity size and systolic function. Atria The left atrium is mildly dilated. Aortic Valve There is a normal trileaflet aortic valve. There is mild thickening of the aortic valve. There is mild aortic valve stenosis. There is mild aortic valve regurgitation. Mitral Valve Likely normal mitral valve structure and function. Pulmonic Valve Normal pulmonic valve structure and function. There is no pulmonic valve regurgitation. Tricuspid Valve Likely normal tricuspid valve structure and function. Tricuspid regurgitation envelope is inadequate for calculation of right ventricular systolic pressure. Indeterminate right atrial pressure. Great Vessels There is mild dilatation of the ascending aorta measuring 3.50 cm. The visualized portions of the pulmonary artery and branches are normal. Venous The inferior vena cava was not well visualized. Pericardium/Pleural There is no evidence of pericardial effusion. Prior Study Comparison No prior study available for comparison.
[2022-03-14 07:23] LABS: Anion Gap 12 (12-20); Blood Urea Nitrogen 52 mg/dL (9-16); Calcium 8.6 mg/dL (8.4-10.2); Carbon Dioxide 31 mmol/L (22-29); Chloride 102 mmol/L (96-108); Creatinine Clr Calc Pharmacy 27.4; Estimated Glomerular Filt Rate 20; Glucose Random 225 mg/dL (60-115); Magnesium 1.5 mg/dL (1.6-2.6); Potassium 3.6 mmol/L (3.3-5.1); Sodium 141 mmol/L (135-145)
[2022-03-14] MEDS: Albuterol/Iprat 2.5/0.5MG 3 ML AMPUL.NEB INHALE ×4 (08:06→19:01)
[2022-03-14] MEDS: Insulin Lispro 100 UNIT/ML 3 ML VIAL SUBCUT ×4 (08:14→21:18)
[2022-03-14] MEDS: Magnesium Sulfate/H2O 2 GM/50 ML PIGGYBACK IV (08:18)
[2022-03-14] MEDS: Dapsone 25 MG TABLET 100 MG PO (08:21)
[2022-03-14] MEDS: Multivitamin TABLET 1 TAB PO (08:22)
[2022-03-14] MEDS: Loratadine 10 MG TABLET PO (08:22)
[2022-03-14] MEDS: Aspirin Enteric Coated 81 MG TABLET.DR PO (08:22)
[2022-03-14] MEDS: DULoxetine HCl 30 MG CAPSULE.DR PO (08:22)
[2022-03-14] MEDS: predniSONE 5 MG TABLET 12.5 MG PO (08:22)
[2022-03-14] MEDS: Cholecalciferol (Vitamin D3) 25 MCG TABLET PO (08:22)
[2022-03-14] MEDS: cloNIDine HCL 0.1 MG TABLET PO ×3 (08:22→21:17)
[2022-03-14] MEDS: Ferrous Sulfate 324 MG TABLET.DR PO ×3 (08:22→16:15)
[2022-03-14] MEDS: Isosorbide Mononitrate 30 MG TAB.ER.24H PO (08:22)
[2022-03-14] MEDS: Sacubitril/Valsartan 49/51 1 TAB TABLET PO ×2 (08:23→21:17)
[2022-03-14] MEDS: SITagliptin Phosphate 25 MG TABLET PO (08:23)
[2022-03-14] MEDS: hydrALAZINE HCl 25 MG TABLET PO ×3 (08:23→21:17)
[2022-03-14] MEDS: carvediloL 25 MG TABLET PO ×2 (08:23→21:17)
[2022-03-14] MEDS: Insulin Glargine,Hum.rec.anlog 100 UNIT/ML 10 ML VIAL 50 UNIT SUBCUT (08:23)
[2022-03-14] MEDS: Furosemide 100 MG/10 ML VIAL 60 MG IVPUSH ×3 (08:23→21:16)
[2022-03-14] MEDS: Atorvastatin Calcium 40 MG TABLET PO (08:23)
[2022-03-14] MEDS: 0.9 % Sodium Chloride Flush 3 ML SYRINGE IVFLUSH ×3 (08:23→21:18)
--- NOTE | 2022-03-14 10:53 | HO.PM.IMPN ---
Subjective Subjective Date of Service: 03/14/22 Interval History: still c/o dyspnea/edema not urinating as much as yesterday negative 510 mL this admission Review of Systems Review of Systems: Yes all other systems are reviewed and are negative Physical Exam Vital Signs: Vital Signs: Last Vital Signs Temp 98.6 F 03/14/22 08:00 Pulse 73 03/14/22 09:50 Resp 18 03/14/22 08:06 BP 142/63 H 03/14/22 08:00 Pulse Ox 93 03/14/22 08:00 O2 Del Method 03/14/22 08:00 O2 Flow Rate 2 03/14/22 08:00 BMI result Body Mass Index 41.5 Gen: in no acute distress HEENT: sclera anicteric, moist mucus membranes Neck: supple Lungs: clear to auscultation bilaterally Heart: regular rate and rhythm, no murmurs Abd: soft, non-tender, distended, morbidly obese Ext: 3+ LLE edema, s/p R BKA Skin: warm/well-perfused Neuro: alert and oriented x3, no focal findings Psych: appropriate affect Objective Data Active Medications Acetaminophen (Acetaminophen 325 Mg Tablet) 650 mg PO Q6H PRN PRN Reason: Pain, Mild (Pain Scale 1-3) Albuterol Sulfate (Albuterol Sulfate 90 Mcg 8 Gm Inhaler) 2 puff INHALE Q4H PRN PRN Reason: Wheezing Albuterol/Ipratropium (Albuterol/Iprat 2.5/0.5mg 3 Ml Ampul.Neb) 3 ml INHALE RQID [facility] Last Admin: 03/14/22 08:06 Dose: 3 ml Documented By: LIO Aspirin (Aspirin Enteric Coated 81 Mg Tablet.) 81 mg PO DAILY [facility] Last Admin: 03/14/22 08:22 Dose: 81 mg Documented By: TAMAR Atorvastatin Calcium (Atorvastatin Calcium 40 Mg Tablet) 40 mg PO DAILY [facility] Last Admin: 03/14/22 08:23 Dose: 40 mg Documented By: TAMAR Carvedilol (Carvedilol 25 Mg Tablet) 25 mg PO BID [facility]; Protocol Last Admin: 03/14/22 08:23 Dose: 25 mg Documented By: TAMAR Clonidine HCl (Clonidine Hcl 0.1 Mg Tablet) 0.1 mg PO TID [facility]; Protocol Last Admin: 12/23/22 08:22 Dose: 0.1 mg Documented By: TAMAR Dapsone (Dapsone 25 Mg Tablet) 100 mg PO DAILY [facility] Last Admin: 03/14/22 08:21 Dose: 100 mg Documented By: TAMAR Dextrose (Dextrose 50 % 25 Gm/50 Ml Syringe) 25 gm IVPUSH Q15M PRN; Protocol PRN Reason: per Hypoglycemia Standing Ord. Duloxetine HCl (Duloxetine Hcl 30 Mg Capsule.) 30 mg PO DAILY [facility] Last Admin: 03/14/22 08:22 Dose: 30 mg Documented By: TAMAR Ferrous Sulfate (Ferrous Sulfate 324 Mg Tablet.) 324 mg PO TIDWM [facility] Last Admin: 03/14/22 08:22 Dose: 324 mg Documented By: TAMAR Fluticasone Propionate (Fluticasone Propionate Nasal 16 Gm Her[place]) 1 spray NOSTRIL-B DAILY [facility] Furosemide (Furosemide 100 Mg/10 Ml Vial) 60 mg IVPUSH BID@0900,1800 [facility]; Protocol Last Admin: 03/14/22 08:23 Dose: 60 mg Documented By: TAMAR Glucose (Glucose Gel 15 Gm Gel..Gram.) 15 gm PO Q15M PRN; Protocol PRN Reason: per Hypoglycemia Standing Ord. Heparin Sodium (Porcine) (Heparin Sodium,Porcine 5,000 Unit/Ml Vial) 5,000 unit SUBCUT Q12H [facility] Last Admin: 03/14/22 06:40 Dose: 5,000 unit Documented By: NADIR Hydralazine HCl (Hydralazine Hcl 25 Mg Tablet) 25 mg PO TID [facility]; Protocol Last Admin: 03/14/22 08:23 Dose: 25 mg Documented By: TAMAR Insulin Glargine (Insulin Glargine,Hum.Rec.Anlog 100 Unit/Ml 10 Ml Vial) 50 unit SUBCUT DAILY [facility] Last Admin: 03/14/22 08:23 Dose: 50 unit Documented By: TAMAR Insulin Human Lispro (Insulin Lispro 100 Unit/Ml 3 Ml Vial) 0 unit SUBCUT QIDACHS [facility]; Protocol Last Admin: 03/14/22 08:14 Dose: 6 unit Documented By: TAMAR Isosorbide Mononitrate (Isosorbide Mononitrate 30 Mg Tab.Er.24h) 30 mg PO DAILY [facility]; Protocol Last Admin: 03/14/22 08:22 Dose: 30 mg Documented By: TAMAR Loratadine (Loratadine 10 Mg Tablet) 10 mg PO DAILY [facility] Last Admin: 03/14/22 08:22 Dose: 10 mg Documented By: TAMAR Multivitamins/Vitamin C (Multivitamin Tablet) 1 tab PO DAILY [facility] Last Admin: 03/14/22 08:22 Dose: 1 tab Documented By: TAMAR Non-Formulary Medication (Buprenorphine) 1 patch TOPICAL QWEEK [facility] Nystatin/Triamcinolone Acetonide (Nystatin/Triamcinolone Cream 15 Gm Tube) 1 appl TOPICAL BID [facility] Last Admin: 03/13/22 20:59 Dose: 1 appl Documented By: ADRIENNE Omeprazole (Omeprazole 20 Mg Capsule.Dr) 20 mg PO DAILY@0630 [facility] Last Admin: 03/14/22 06:40 Dose: 20 mg Documented By: NADIR Ondansetron HCl (Ondansetron Hcl 4 Mg/2 Ml Vial) 4 mg IVPUSH Q8H PRN PRN Reason: Nausea and Vomiting Pharmacy Consult (Consult Rx Perform Med Rec) 1 each MISCELLANE ONCE PRN PRN Reason: probable admission Prednisone (Prednisone 5 Mg Tablet) 12.5 mg PO DAILY [facility] Last Admin: 03/14/22 08:22 Dose: 12.5 mg Documented By: TAMAR Comments: Sacubitril/Valsartan (Sacubitril/Valsartan 49/51 1 Tab Tablet) 1 tab PO BID [facility]; Protocol Last Admin: 03/14/22 08:23 Dose: 1 tab Documented By: TAMAR Senna/Docusate Sodium (Sennosides/Docusate Sodium Tablet) 1 tab PO BEDTIME [facility] Last Admin: 03/13/22 20:55 Dose: 1 tab Documented By: ADRIENNE Sitagliptin Phosphate (Sitagliptin Phosphate 25 Mg Tablet) 25 mg PO DAILY [facility] Last Admin: 03/14/22 08:23 Dose: 25 mg Documented By: TAMAR Sodium Chloride (0.9 % Sodium Chloride Flush 3 Ml Syringe) 3 ml IVFLUSH QSHIFT [facility] Last Admin: 03/14/22 08:23 Dose: 3 ml Documented By: TAMAR Tamsulosin HCl (Tamsulosin Hcl 0.4 Mg Capsule) 0.4 mg PO DAILY@1730 [facility] Last Admin: 03/13/22 17:51 Dose: 0.4 mg Documented By: ADRIENNE Vitamin D (Cholecalciferol (Vitamin D3) 25 Mcg Tablet) 25 mcg PO DAILY [facility] Last Admin: 03/14/22 08:22 Dose: 25 mcg Documented By: TAMAR Labs CBC & Chem 7: 03/14/22 05:42 03/14/22 05:42 Labs: Laboratory Results - last 24 hr 03/13/22 03/13/22 03/13/22 12:44 13:02 13:03 MCV 94.3 MCH 30.1 MCHC 31.9 RDW 14.9 Plt Count 196 MPV 11.8 Immature Gran % (Auto) 0.8 H Neut % (Auto) 86.1 H Lymph % (Auto) 7.2 L [place] % (Auto) 5.6 Eos % (Auto) 0.0 Baso % (Auto) 0.3 Lymph # (Auto) 0.7 L [place] # (Auto) 0.6 Eos # (Auto) 0.0 Baso # (Auto) 0.0 Abs Immat Gran (auto) 0.08 H Absolute Neuts (auto) 8.5 H Absolute Nucleated RBC 0.000 Nucleated RBC % (auto) 0.0 D-Dimer High Sensitivty VBG pH VBG pCO2 VBG pO2 VBG HCO3 VBG O2 Saturation VBG Base Excess Anion Gap Estim Creat Clear Calc Estimated GFR POC Glucose Random Glucose Lactic Acid 1.6 Calcium Magnesium Total Bilirubin AST ALT Alkaline Phosphatase Troponin I High Sens B-Natriuretic Peptide Total Protein Albumin Influenza Type A (PCR) NEGATIVE Influenza Type B (PCR) NEGATIVE RSV RNA Qual (PCR) NEGATIVE SARS-CoV-2 RNA (RT-PCR) NEGATIVE 03/13/22 03/13/22 03/13/22 13:03 13:03 13:04 MCV MCH MCHC RDW Plt Count MPV Immature Gran % (Auto) Neut % (Auto) Lymph % (Auto) [place] % (Auto) Eos % (Auto) Baso % (Auto) Lymph # (Auto) [place] # (Auto) Eos # (Auto) Baso # (Auto) Abs Immat Gran (auto) Absolute Neuts (auto) Absolute Nucleated RBC Nucleated RBC % (auto) D-Dimer High Sensitivty 369 VBG pH VBG pCO2 VBG pO2 VBG HCO3 VBG O2 Saturation VBG Base Excess Anion Gap 15 Estim Creat Clear Calc 30.5 Estimated GFR 23 POC Glucose Random Glucose 154 H Lactic Acid Calcium 9.2 Magnesium Total Bilirubin 0.3 AST 12 ALT 14 Alkaline Phosphatase 69 Troponin I High Sens 74.4 H B-Natriuretic Peptide Total Protein 6.1 L Albumin 3.3 L Influenza Type A (PCR) Influenza Type B (PCR) RSV RNA Qual (PCR) SARS-CoV-2 RNA (RT-PCR) 03/13/22 03/13/22 03/13/22 13:05 13:09 15:13 MCV MCH MCHC RDW Plt Count MPV Immature Gran % (Auto) Neut % (Auto) Lymph % (Auto) [place] % (Auto) Eos % (Auto) Baso % (Auto) Lymph # (Auto) [place] # (Auto) Eos # (Auto) Baso # (Auto) Abs Immat Gran (auto) Absolute Neuts (auto) Absolute Nucleated RBC Nucleated RBC % (auto) D-Dimer High Sensitivty VBG pH 7.46 H VBG pCO2 39 VBG pO2 89 VBG HCO3 28 H VBG O2 Saturation 95.0 VBG Base Excess 4.3 Anion Gap Estim Creat Clear Calc Estimated GFR POC Glucose Random Glucose Lactic Acid Calcium Magnesium Total Bilirubin AST ALT Alkaline Phosphatase Troponin I High Sens 70.7 H B-Natriuretic Peptide 605 H Total Protein Albumin Influenza Type A (PCR) Influenza Type B (PCR) RSV RNA Qual (PCR) SARS-CoV-2 RNA (RT-PCR) 03/13/22 03/14/22 03/14/22 20:59 05:42 05:42 MCV 94.7 MCH 29.5 MCHC 31.2 RDW 14.9 Plt Count 164 MPV 12.4 Immature Gran % (Auto) Neut % (Auto) Lymph % (Auto) [place] % (Auto) Eos % (Auto) Baso % (Auto) Lymph # (Auto) [place] # (Auto) Eos # (Auto) Baso # (Auto) Abs Immat Gran (auto) Absolute Neuts (auto) Absolute Nucleated RBC 0.000 Nucleated RBC % (auto) 0.0 D-Dimer High Sensitivty VBG pH VBG pCO2 VBG pO2 VBG HCO3 VBG O2 Saturation VBG Base Excess Anion Gap 12 Estim Creat Clear Calc 27.4 Estimated GFR 20 POC Glucose 390 H* Random Glucose 225 H Lactic Acid Calcium 8.6 D Magnesium 1.5 L Total Bilirubin AST ALT Alkaline Phosphatase Troponin I High Sens B-Natriuretic Peptide Total Protein Albumin Influenza Type A (PCR) Influenza Type B (PCR) RSV RNA Qual (PCR) SARS-CoV-2 RNA (RT-PCR) 03/14/22 03/14/22 05:42 07:17 MCV MCH MCHC RDW Plt Count MPV Immature Gran % (Auto) Neut % (Auto) Lymph % (Auto) [place] % (Auto) Eos % (Auto) Baso % (Auto) Lymph # (Auto) [place] # (Auto) Eos # (Auto) Baso # (Auto) Abs Immat Gran (auto) Absolute Neuts (auto) Absolute Nucleated RBC Nucleated RBC % (auto) D-Dimer High Sensitivty VBG pH VBG pCO2 VBG pO2 VBG HCO3 VBG O2 Saturation VBG Base Excess Anion Gap Estim Creat Clear Calc Estimated GFR POC Glucose 217 H Random Glucose Lactic Acid Calcium Magnesium Total Bilirubin AST ALT Alkaline Phosphatase Troponin I High Sens B-Natriuretic Peptide 280 H Total Protein Albumin Influenza Type A (PCR) Influenza Type B (PCR) RSV RNA Qual (PCR) SARS-CoV-2 RNA (RT-PCR) Assessment and Plan (1) HFrEF (heart failure with reduced ejection fraction): Status: Acute Plan d#2 67yo M with HTN, HFrEF, NICM, DM2, DM foot infection s/p R BKA, hx CVA, BLANCO not on CPAP, and psoriasis. ? Recently on HD for 2 mo but taken off 3 wk ago presumably due to renal recovery.? Presenting with 2 days of dyspnea + edema, found to be in acute respiratory distress due to volume overload. # acute respiratory failure due to acute/chronic HFrEF - continue to diurese with IV furosemide, consult Cardiology, update TTE, monitor I/O + BMP/BNP/Mg, continue neurohormonal modulation with Entresto + carvedilol + Imdur/hydralazine # LAUREEN/CKD4, recent HD - Nephrology consultation- ?resume HD # anemia of CKD - iron supplementation # HTN - continue Entresto, carvedilol, clonidine, hydralazine, Imdur # DM2 - basal/bolus insulin # psoriasis - continue dapsone + prednisone # VTE ppx: UFH In my clinical judgment, the patient requires continued inpatient hospitalization for the following reasons: IV diuresis Time Spent With Patient Time: Total time managing care of this patient today __30__ minutes. Quality Stroke Does the patient have a stroke diagnosis?: No VTE Prior VTE?: No VTE Risk Level:: Medical - moderate - high VTE Device Contraindication: N/A - Device Ordered VTE Drug Contraindication: N/A - Med Ordered
--- NOTE | 2022-03-14 11:30 | PM.CNCAR ---
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 He still has a PermCath in the right subclavian. He also has history of vasculitis and has been on prednisone. He is saying he follows with Dr. Rice at [facility]. He has been on prednisone. He is now presenting for shortness of breath and significant volume overload. Clinically he is in heart failure. Denies any chest discomfort. He also has hoarseness of voice which could be related to prednisone. [facility] Past Medical History Medical History Amputated right leg CVA (cerebral vascular accident) Diabetes mellitus HFrEF (heart failure with reduced ejection fraction) History of benign adrenal tumor History of cocaine abuse History of COVID-19 Hypertension Low back pain Nonischemic cardiomyopathy Obstructive sleep apnea syndrome Psoriasis Tobacco dependence Family History Family History Father Myocardial infarction Surgical History Surgical History H/O partial adrenalectomy Status post Elise procedure Social History Social History Household Members: None Housing: Apartment Do you presently have visiting nurse or other home services: Yes ([employer] and [facility]) Alcohol intake: unknown Patient Tobacco Use Status: Never used Tobacco service: No Current occupational status: disabled Meds Allergies Allergy/AdvReac Type Severity Reaction Status Date / Time Unable to Assess Allergy Verified 03/13/22 12:27 Active Medications: Current Medications Acetaminophen (Acetaminophen 325 Mg Tablet) 650 mg PO Q6H PRN PRN Reason: Pain, Mild (Pain Scale 1-3) Albuterol Sulfate (Albuterol Sulfate 90 Mcg 8 Gm Inhaler) 2 puff INHALE Q4H PRN PRN Reason: Wheezing Albuterol/Ipratropium (Albuterol/Iprat 2.5/0.5mg 3 Ml Ampul.Neb) 3 ml INHALE RQID [facility] Last Admin: 03/14/22 11:12 Dose: 3 ml Aspirin (Aspirin Enteric Coated 81 Mg Tablet.) 81 mg PO DAILY [facility] Last Admin: 03/14/22 08:22 Dose: 81 mg Atorvastatin Calcium (Atorvastatin Calcium 40 Mg Tablet) 40 mg PO DAILY [facility] Last Admin: 03/14/22 08:23 Dose: 40 mg Carvedilol (Carvedilol 25 Mg Tablet) 25 mg PO BID [facility]; Protocol Last Admin: 03/14/22 08:23 Dose: 25 mg Clonidine HCl (Clonidine Hcl 0.1 Mg Tablet) 0.1 mg PO TID [facility]; Protocol Last Admin: 03/14/22 08:22 Dose: 0.1 mg Dapsone (Dapsone 25 Mg Tablet) 100 mg PO DAILY [facility] Last Admin: 03/14/22 08:21 Dose: 100 mg Dextrose (Dextrose 50 % 25 Gm/50 Ml Syringe) 25 gm IVPUSH Q15M PRN; Protocol PRN Reason: per Hypoglycemia Standing Ord. Duloxetine HCl (Duloxetine Hcl 30 Mg Capsule.) 30 mg PO DAILY [facility] Last Admin: 03/14/22 08:22 Dose: 30 mg Ferrous Sulfate (Ferrous Sulfate 324 Mg Tablet.) 324 mg PO TIDWM [facility] Last Admin: 03/14/22 08:22 Dose: 324 mg Fluticasone Propionate (Fluticasone Propionate Nasal 16 Gm [place]) 1 spray NOSTRIL-B DAILY [facility] Last Admin: 03/14/22 10:54 Dose: Not Given Furosemide (Furosemide 100 Mg/10 Ml Vial) 60 mg IVPUSH BID@0900,1800 [facility]; Protocol Last Admin: 03/14/22 08:23 Dose: 60 mg Glucose (Glucose Gel 15 Gm Gel..Gram.) 15 gm PO Q15M PRN; Protocol PRN Reason: per Hypoglycemia Standing Ord. Heparin Sodium (Porcine) (Heparin Sodium,Porcine 5,000 Unit/Ml Vial) 5,000 unit SUBCUT Q12H [facility] Last Admin: 03/14/22 06:40 Dose: 5,000 unit Hydralazine HCl (Hydralazine Hcl 25 Mg Tablet) 25 mg PO TID [facility]; Protocol Last Admin: 03/14/22 08:23 Dose: 25 mg Insulin Glargine (Insulin Glargine,Hum.Rec.Anlog 100 Unit/Ml 10 Ml Vial) 50 unit SUBCUT DAILY [facility] Last Admin: 03/14/22 08:23 Dose: 50 unit Insulin Human Lispro (Insulin Lispro 100 Unit/Ml 3 Ml Vial) 0 unit SUBCUT QIDACHS [facility]; Protocol Last Admin: 03/14/22 08:14 Dose: 6 unit Isosorbide Mononitrate (Isosorbide Mononitrate 30 Mg Tab.Er.24h) 30 mg PO DAILY [facility]; Protocol Last Admin: 03/14/22 08:22 Dose: 30 mg Loratadine (Loratadine 10 Mg Tablet) 10 mg PO DAILY [facility] Last Admin: 03/14/22 08:22 Dose: 10 mg Multivitamins/Vitamin C (Multivitamin Tablet) 1 tab PO DAILY [facility] Last Admin: 03/14/22 08:22 Dose: 1 tab Non-Formulary Medication (Buprenorphine) 1 patch TOPICAL QWEEK [facility] Nystatin/Triamcinolone Acetonide (Nystatin/Triamcinolone Cream 15 Gm Tube) 1 appl TOPICAL BID [facility] Last Admin: 03/13/22 20:59 Dose: 1 appl Omeprazole (Omeprazole 20 Mg Capsule.Dr) 20 mg PO DAILY@0630 [facility] Last Admin: 03/14/22 06:40 Dose: 20 mg Ondansetron HCl (Ondansetron Hcl 4 Mg/2 Ml Vial) 4 mg IVPUSH Q8H PRN PRN Reason: Nausea and Vomiting Oxycodone HCl (Oxycodone Hcl Immed Release 5 Mg Tablet) 5 mg PO Q6H PRN PRN Reason: severe pain Pharmacy Consult (Consult Rx Perform Med Rec) 1 each MISCELLANE ONCE PRN PRN Reason: probable admission Prednisone (Prednisone 5 Mg Tablet) 12.5 mg PO DAILY [facility] Last Admin: 03/14/22 08:22 Dose: 12.5 mg Sacubitril/Valsartan (Sacubitril/Valsartan 49/51 1 Tab Tablet) 1 tab PO BID [facility]; Protocol Last Admin: 03/14/22 08:23 Dose: 1 tab Senna/Docusate Sodium (Sennosides/Docusate Sodium Tablet) 1 tab PO BEDTIME [facility] Last Admin: 03/13/22 20:55 Dose: 1 tab Sitagliptin Phosphate (Sitagliptin Phosphate 25 Mg Tablet) 25 mg PO DAILY [facility] Last Admin: 03/14/22 08:23 Dose: 25 mg Sodium Chloride (0.9 % Sodium Chloride Flush 3 Ml Syringe) 3 ml IVFLUSH QSHIFT [facility] Last Admin: 03/14/22 08:23 Dose: 3 ml Tamsulosin HCl (Tamsulosin Hcl 0.4 Mg Capsule) 0.4 mg PO DAILY@1730 [facility] Last Admin: 03/13/22 17:51 Dose: 0.4 mg Vitamin D (Cholecalciferol (Vitamin D3) 25 Mcg Tablet) 25 mcg PO DAILY [facility] Last Admin: 03/14/22 08:22 Dose: 25 mcg Home Medications Medication Instructions Recorded Confirmed Last Taken Type albuterol sulfate 90 mcg/actuation 2 inh inhalation Q4H PRN Wheezing 03/13/22 03/13/22 Unknown History aerosol inhaler aspirin 81 mg tablet,delayed 1 tab PO DAILY 03/13/22 03/13/22 Unknown History release atorvastatin 40 mg tablet 1 tab PO DAILY 03/13/22 03/13/22 Unknown History buprenorphine 10 mcg/hour weekly 1 patch topical QWEEK 03/13/22 03/13/22 Unknown History transdermal patch carvedilol 25 mg tablet 1 tab PO BID 03/13/22 03/13/22 Unknown History cetirizine 10 mg tablet 1 tab PO DAILY 03/13/22 03/13/22 Unknown History cholecalciferol (vitamin D3) 25 1 tab PO DAILY 03/13/22 03/13/22 Unknown History mcg (1,000 unit) tablet clonidine HCl 0.1 mg tablet 1 tab PO TID 03/13/22 03/13/22 Unknown History clotrimazole-betamethasone 1 1 appl topical BID 03/13/22 03/13/22 Unknown History %-0.05 % topical cream dapsone 100 mg tablet 1 tab PO DAILY 03/13/22 03/13/22 Unknown History duloxetine 30 mg capsule,delayed 1 cap PO DAILY 03/13/22 03/13/22 Unknown History release ferrous sulfate 325 mg (65 mg 325 mg PO TID 03/13/22 03/13/22 Unknown History iron) tablet (FeroSul) fluticasone propionate 50 1 spray intranasal DAILY 03/13/22 03/13/22 Unknown History mcg/actuation nasal spray,suspension hydralazine 25 mg tablet 1 tab PO TID 03/13/22 03/13/22 Unknown History insulin aspart U-100 100 unit/mL See Rx Instructions .Route .COMPLEX 03/13/22 03/13/22 Unknown History (3 mL) subcutaneous pen (Novolog Flexpen U-100 Insulin aspart) insulin glargine 100 unit/mL (3 50 unit subcut DAILY 03/13/22 03/13/22 Unknown History mL) subcutaneous pen (Lantus Solostar U-100 Insulin) ipratropium 0.5 mg-albuterol 3 mg 3 ml inhalation QID 03/13/22 03/13/22 Unknown History (2.5 mg base)/3 mL nebulization soln isosorbide mononitrate 30 mg 1 tab PO DAILY 03/13/22 03/13/22 Unknown History tablet,extended release 24 hr multivitamin 1 tab PO DAILY 03/13/22 03/13/22 Unknown History omeprazole 20 mg capsule,delayed 1 cap PO DAILY 03/13/22 03/13/22 Unknown History release prednisone 5 mg tablet 12.5 mg PO DAILY 03/13/22 03/13/22 Unknown History sacubitril 49 mg-valsartan 51 mg 1 tab PO BID 03/13/22 03/13/22 Unknown History tablet (Entresto) sennosides 8.6 mg-docusate sodium 1 tab PO BEDTIME 03/13/22 03/13/22 Unknown History 50 mg tablet (Senna-S) sitagliptin phosphate 25 mg tablet 1 tab PO DAILY 03/13/22 03/13/22 Unknown History (Januvia) tamsulosin 0.4 mg capsule 1 cap PO DAILY 03/13/22 03/13/22 Unknown History torsemide 100 mg tablet 1 tab PO DAILY 03/13/22 03/13/22 Unknown History Physical Exam Vital Signs: Vital Signs: Last Vital Signs Temp 97.7 F 03/14/22 11:01 Pulse 74 03/14/22 11:13 Resp 18 03/14/22 11:13 BP 129/60 03/14/22 11:01 Pulse Ox 92 03/14/22 11:01 O2 Del Method 03/14/22 11:01 O2 Flow Rate 2 03/14/22 11:01 BMI result Body Mass Index 41.5 GENERAL APPEARANCE: SOB, hoarseness of voice. Edematous all over. NECK: no carotid bruit, + jugular venous distention. SKIN: no suspicious lesions, warm and dry. HEART: no murmurs, regular rate and rhythm. LUNGS: clear to auscultation bilaterally. ABDOMEN: soft, nontender. EXTREMITIES: right BKA. left leg edematous. PERIPHERAL PULSES: equal. NEUROLOGIC: No gross deficits, AAO X 3 Objective Labs and Meds Result diagrams: 03/14/22 05:42 03/14/22 05:42 Lab results: Laboratory Results - last 24 hr 03/13/22 03/13/22 03/13/22 12:44 13:02 13:03 WBC 9.8 RBC 3.16 L Hgb 9.5 L Hct 29.8 L MCV 94.3 MCH 30.1 MCHC 31.9 RDW 14.9 Plt Count 196 MPV 11.8 Immature Gran % (Auto) 0.8 H Neut % (Auto) 86.1 H Lymph % (Auto) 7.2 L Delta % (Auto) 5.6 Eos % (Auto) 0.0 Baso % (Auto) 0.3 Lymph # (Auto) 0.7 L Delta # (Auto) 0.6 Eos # (Auto) 0.0 Baso # (Auto) 0.0 Abs Immat Gran (auto) 0.08 H Absolute Neuts (auto) 8.5 H Absolute Nucleated RBC 0.000 Nucleated RBC % (auto) 0.0 D-Dimer High Sensitivty VBG pH VBG pCO2 VBG pO2 VBG HCO3 VBG O2 Saturation VBG Base Excess Sodium Potassium Chloride Carbon Dioxide Anion Gap BUN Creatinine Estim Creat Clear Calc Estimated GFR POC Glucose Random Glucose Lactic Acid 1.6 Calcium Magnesium Total Bilirubin AST ALT Alkaline Phosphatase Troponin I High Sens B-Natriuretic Peptide Total Protein Albumin Influenza Type A (PCR) NEGATIVE Influenza Type B (PCR) NEGATIVE RSV RNA Qual (PCR) NEGATIVE SARS-CoV-2 RNA (RT-PCR) NEGATIVE 03/13/22 03/13/22 03/13/22 13:03 13:03 13:04 WBC RBC Hgb Hct MCV MCH MCHC RDW Plt Count MPV Immature Gran % (Auto) Neut % (Auto) Lymph % (Auto) Delta % (Auto) Eos % (Auto) Baso % (Auto) Lymph # (Auto) Delta # (Auto) Eos # (Auto) Baso # (Auto) Abs Immat Gran (auto) Absolute Neuts (auto) Absolute Nucleated RBC Nucleated RBC % (auto) D-Dimer High Sensitivty 369 VBG pH VBG pCO2 VBG pO2 VBG HCO3 VBG O2 Saturation VBG Base Excess Sodium 144 Potassium 3.7 Chloride 104 Carbon Dioxide 29 Anion Gap 15 BUN 48 H Creatinine 2.79 H Estim Creat Clear Calc 30.5 Estimated GFR 23 POC Glucose Random Glucose 154 H Lactic Acid Calcium 9.2 Magnesium Total Bilirubin 0.3 AST 12 ALT 14 Alkaline Phosphatase 69 Troponin I High Sens 74.4 H B-Natriuretic Peptide Total Protein 6.1 L Albumin 3.3 L Influenza Type A (PCR) Influenza Type B (PCR) RSV RNA Qual (PCR) SARS-CoV-2 RNA (RT-PCR) 03/13/22 03/13/22 03/13/22 13:05 13:09 15:13 WBC RBC Hgb Hct MCV MCH MCHC RDW Plt Count MPV Immature Gran % (Auto) Neut % (Auto) Lymph % (Auto) Delta % (Auto) Eos % (Auto) Baso % (Auto) Lymph # (Auto) Delta # (Auto) Eos # (Auto) Baso # (Auto) Abs Immat Gran (auto) Absolute Neuts (auto) Absolute Nucleated RBC Nucleated RBC % (auto) D-Dimer High Sensitivty VBG pH 7.46 H VBG pCO2 39 VBG pO2 89 VBG HCO3 28 H VBG O2 Saturation 95.0 VBG Base Excess 4.3 Sodium Potassium Chloride Carbon Dioxide Anion Gap BUN Creatinine Estim Creat Clear Calc Estimated GFR POC Glucose Random Glucose Lactic Acid Calcium Magnesium Total Bilirubin AST ALT Alkaline Phosphatase Troponin I High Sens 70.7 H B-Natriuretic Peptide 605 H Total Protein Albumin Influenza Type A (PCR) Influenza Type B (PCR) RSV RNA Qual (PCR) SARS-CoV-2 RNA (RT-PCR) 03/13/22 03/14/22 03/14/22 20:59 05:42 05:42 WBC 6.4 RBC 2.81 L Hgb 8.3 L Hct 26.6 L MCV 94.7 MCH 29.5 MCHC 31.2 RDW 14.9 Plt Count 164 MPV 12.4 Immature Gran % (Auto) Neut % (Auto) Lymph % (Auto) Delta % (Auto) Eos % (Auto) Baso % (Auto) Lymph # (Auto) Delta # (Auto) Eos # (Auto) Baso # (Auto) Abs Immat Gran (auto) Absolute Neuts (auto) Absolute Nucleated RBC 0.000 Nucleated RBC % (auto) 0.0 D-Dimer High Sensitivty VBG pH VBG pCO2 VBG pO2 VBG HCO3 VBG O2 Saturation VBG Base Excess Sodium 141 Potassium 3.6 Chloride 102 Carbon Dioxide 31 H Anion Gap 12 BUN 52 H Creatinine 3.12 H Estim Creat Clear Calc 27.4 Estimated GFR 20 POC Glucose 390 H* Random Glucose 225 H Lactic Acid Calcium 8.6 D Magnesium 1.5 L Total Bilirubin AST ALT Alkaline Phosphatase Troponin I High Sens B-Natriuretic Peptide Total Protein Albumin Influenza Type A (PCR) Influenza Type B (PCR) RSV RNA Qual (PCR) SARS-CoV-2 RNA (RT-PCR) 03/14/22 03/14/22 03/14/22 05:42 07:17 11:00 WBC RBC Hgb Hct MCV MCH MCHC RDW Plt Count MPV Immature Gran % (Auto) Neut % (Auto) Lymph % (Auto) Delta % (Auto) Eos % (Auto) Baso % (Auto) Lymph # (Auto) Delta # (Auto) Eos # (Auto) Baso # (Auto) Abs Immat Gran (auto) Absolute Neuts (auto) Absolute Nucleated RBC Nucleated RBC % (auto) D-Dimer High Sensitivty VBG pH VBG pCO2 VBG pO2 VBG HCO3 VBG O2 Saturation VBG Base Excess Sodium Potassium Chloride Carbon Dioxide Anion Gap BUN Creatinine Estim Creat Clear Calc Estimated GFR POC Glucose 217 H 334 H Random Glucose Lactic Acid Calcium Magnesium Total Bilirubin AST ALT Alkaline Phosphatase Troponin I High Sens B-Natriuretic Peptide 280 H Total Protein Albumin Influenza Type A (PCR) Influenza Type B (PCR) RSV RNA Qual (PCR) SARS-CoV-2 RNA (RT-PCR) Imaging Radiologist's impression: Impressions Chest X-Ray 03/13/22 13:35 IMPRESSION: No acute pulmonary disease. Pulmonary Perfusion Imaging 03/13/22 14:35 IMPRESSION: Only mildly heterogeneous uptake without segmental defect. Findings consistent with low probability for pulmonary embolism. Assessment and Plan (1) CKD (chronic kidney disease): Status: Acute (2) HFrEF (heart failure with reduced ejection fraction): Status: Acute Plan Pleasant 67 gentleman with chronic kidney disease who was on temporary dialysis presenting with significant volume overload and heart failure. Apparently he has background of heart failure with reduced ejection fraction. Currently I do not have any echocardiography. He is significantly volume overloaded. Continue diuretics. He also has vasculitis for which he has been on prednisone which is adding to the volume overload. Nephrology should follow along given his complex issues and recent hemodialysis. Continue Entresto on carvedilol. Thank you for allowing me to participate in the care of your patient. Please feel free to contact me if you have any questions. Time Spent With Patient Time: Total time managing care of this patient today ____ minutes. Procedures Date of Service Date of Service: 03/14/22
[2022-03-14] MEDS: oxyCODONE HCl Immed Release 5 MG TABLET PO ×2 (11:46→22:31)
[2022-03-14] MEDS: Tamsulosin HCL 0.4 MG CAPSULE PO (16:16)
--- NOTE | 2022-03-14 20:32 | PM.EVENT ---
Event Note Date of Service: 03/14/22 Event Note: 67yo M with HTN, HFrEF, NICM, DM2, DM foot infection s/p R BKA, hx CVA, BLANCO not on CPAP, and psoriasis. ? Recently on HD for 2 mo but taken off 3 wk ago presumably due to renal recovery.? Presenting with 2 days of dyspnea + edema, found to be in acute respiratory distress due to volume overload. # LAUREEN/CKD4, recent HD # acute respiratory failure due to acute/chronic HFrEF # anemia of CKD # HTN # DM2 - Low Salt diet - Fluid restriction - continue to diurese with IV furosemid- Increase to Q 8 - Contineu BP meds - On Enteresto ( Has a ARB - Will continue for now ) - Will order a 24 hr Urine - Hold HD as he is acute ( Cr around 3)- No eed for Hd based on Labs - iron supplementation - DM management as per - [facility] Will follow Full consult to follow Time Spent With Patient Time: Total time managing care of this patient today ____ minutes.
[2022-03-14] MEDS: Sennosides/Docusate Sodium TABLET 1 TAB PO (21:17)
[2022-03-15] VITALS (8 sets, daily range): BP systolic 132–149; BP diastolic 60–71; PULSE 64–79; RESP 16–18; TEMP 36.1–37.2; O2SAT 91–95
[2022-03-15] MEDS: Heparin Sodium,Porcine 5,000 UNIT/ML VIAL 5000 UNIT SUBCUT ×2 (05:57→17:02)
[2022-03-15] MEDS: Omeprazole 20 MG CAPSULE.DR PO (05:57)
[2022-03-15] MEDS: Furosemide 100 MG/10 ML VIAL 60 MG IVPUSH (05:57)
[2022-03-15 07:40] LABS: B Type Natriuretic Peptide 124 pg/mL (<100)
[2022-03-15] MEDS: Albuterol/Iprat 2.5/0.5MG 3 ML AMPUL.NEB INHALE ×3 (07:55→19:29)
[2022-03-15] MEDS: Multivitamin TABLET 1 TAB PO (07:59)
[2022-03-15] MEDS: Cholecalciferol (Vitamin D3) 25 MCG TABLET PO (07:59)
[2022-03-15] MEDS: Dapsone 25 MG TABLET 100 MG PO (07:59)
[2022-03-15] MEDS: predniSONE 5 MG TABLET 12.5 MG PO (08:00)
[2022-03-15] MEDS: Isosorbide Mononitrate 30 MG TAB.ER.24H PO (08:00)
[2022-03-15] MEDS: Aspirin Enteric Coated 81 MG TABLET.DR PO (08:00)
[2022-03-15] MEDS: hydrALAZINE HCl 25 MG TABLET PO (08:01)
[2022-03-15] MEDS: Loratadine 10 MG TABLET PO (08:01)
[2022-03-15] MEDS: Sacubitril/Valsartan 49/51 1 TAB TABLET PO ×2 (08:01→21:42)
[2022-03-15] MEDS: Ferrous Sulfate 324 MG TABLET.DR PO ×3 (08:01→17:01)
[2022-03-15] MEDS: Atorvastatin Calcium 40 MG TABLET PO (08:01)
[2022-03-15] MEDS: 0.9 % Sodium Chloride Flush 3 ML SYRINGE IVFLUSH ×3 (08:01→21:44)
[2022-03-15] MEDS: cloNIDine HCL 0.1 MG TABLET PO ×3 (08:01→21:42)
[2022-03-15] MEDS: carvediloL 25 MG TABLET PO (08:01)
[2022-03-15] MEDS: SITagliptin Phosphate 25 MG TABLET PO (08:01)
[2022-03-15] MEDS: Insulin Glargine,Hum.rec.anlog 100 UNIT/ML 10 ML VIAL 50 UNIT SUBCUT (08:02)
[2022-03-15] MEDS: Insulin Lispro 100 UNIT/ML 3 ML VIAL SUBCUT ×4 (08:03→21:41)
[2022-03-15 08:10] LABS: Anion Gap 15 (12-20); Blood Urea Nitrogen 59 mg/dL (9-16); Calcium 8.7 mg/dL (8.4-10.2); Carbon Dioxide 32 mmol/L (22-29); Chloride 102 mmol/L (96-108); Creatinine Clr Calc Pharmacy 25.9; Estimated Glomerular Filt Rate 19; Glucose Random 125 mg/dL (60-115); Potassium 4.6 mmol/L (3.3-5.1); Sodium 144 mmol/L (135-145)
[2022-03-15] MEDS: DULoxetine HCl 30 MG CAPSULE.DR PO (08:18)
[2022-03-15] MEDS: Fluticasone Propionate Nasal 16 GM SPRAY 1 SPRAY NOSTRIL-B (10:27)
[2022-03-15] MEDS: Nystatin/Triamcinolone Cream 15 GM TUBE 1 APPL TOPICAL ×2 (10:27→21:42)
--- NOTE | 2022-03-15 11:19 | HO.PM.IMPN ---
Subjective Subjective Date of Service: 03/15/22 Interval History: still c/o dyspnea + generalized edema Physical Exam Vital Signs: Vital Signs: Last Vital Signs Temp 98.9 F 03/15/22 10:50 Pulse 64 03/15/22 10:50 Resp 16 03/15/22 10:50 BP 140/65 H 03/15/22 10:50 Pulse Ox 93 03/15/22 10:50 O2 Del Method 03/15/22 10:50 O2 Flow Rate 2 03/15/22 10:50 BMI result Body Mass Index 41.5 Gen: in no acute distress HEENT: sclera anicteric, moist mucus membranes Neck: supple Lungs: clear to auscultation bilaterally Heart: regular rate and rhythm, no murmurs Abd: soft, non-tender, distended, morbidly obese Ext: 3+ LLE edema, s/p R BKA Skin: warm/well-perfused, extensive psoriatic plaques Neuro: alert and oriented x3, no focal findings Psych: appropriate affect Objective Data Active Medications Acetaminophen (Acetaminophen 325 Mg Tablet) 650 mg PO Q6H PRN PRN Reason: Pain, Mild (Pain Scale 1-3) Albuterol Sulfate (Albuterol Sulfate 90 Mcg 8 Gm Inhaler) 2 puff INHALE Q4H PRN PRN Reason: Wheezing Albuterol/Ipratropium (Albuterol/Iprat 2.5/0.5mg 3 Ml Ampul.Neb) 3 ml INHALE RQID [facility] Last Admin: 03/15/22 07:55 Dose: 3 ml Documented By: SHANE Aspirin (Aspirin Enteric Coated 81 Mg Tablet.) 81 mg PO DAILY [facility] Last Admin: 03/15/22 08:00 Dose: 81 mg Documented By: CHUCKY Atorvastatin Calcium (Atorvastatin Calcium 40 Mg Tablet) 40 mg PO DAILY [facility] Last Admin: 03/15/22 08:01 Dose: 40 mg Documented By: CHUCKY Carvedilol (Carvedilol 25 Mg Tablet) 25 mg PO BID [facility]; Protocol Last Admin: 03/15/22 08:01 Dose: 25 mg Documented By: CHUCKY Clonidine HCl (Clonidine Hcl 0.1 Mg Tablet) 0.1 mg PO TID [facility]; Protocol Last Admin: 03/15/22 08:01 Dose: 0.1 mg Documented By: CHUCKY Dapsone (Dapsone 25 Mg Tablet) 100 mg PO DAILY [facility] Last Admin: 03/15/22 07:59 Dose: 100 mg Documented By: CHUCKY Dextrose (Dextrose 50 % 25 Gm/50 Ml Syringe) 25 gm IVPUSH Q15M PRN; Protocol PRN Reason: per Hypoglycemia Standing Ord. Duloxetine HCl (Duloxetine Hcl 30 Mg Capsule.) 30 mg PO DAILY [facility] Last Admin: 03/15/22 08:18 Dose: 30 mg Documented By: CHUCKY Ferrous Sulfate (Ferrous Sulfate 324 Mg Tablet.) 324 mg PO TIDWM [facility] Last Admin: 03/15/22 08:01 Dose: 324 mg Documented By: CHUCKY Fluticasone Propionate (Fluticasone Propionate Nasal 16 Gm [place]) 1 spray NOSTRIL-B DAILY [facility] Last Admin: 03/15/22 10:27 Dose: 1 spray Documented By: CHUCKY Furosemide (Furosemide 100 Mg/10 Ml Vial) 60 mg IVPUSH Q8H [facility]; Protocol Last Admin: 03/15/22 05:57 Dose: 60 mg Documented By: CATINA Glucose (Glucose Gel 15 Gm Gel..Gram.) 15 gm PO Q15M PRN; Protocol PRN Reason: per Hypoglycemia Standing Ord. Heparin Sodium (Porcine) (Heparin Sodium,Porcine 5,000 Unit/Ml Vial) 5,000 unit SUBCUT Q12H [facility] Last Admin: 03/15/22 05:57 Dose: 5,000 unit Documented By: CATINA Hydralazine HCl (Hydralazine Hcl 25 Mg Tablet) 25 mg PO TID [facility]; Protocol Last Admin: 03/15/22 08:01 Dose: 25 mg Documented By: CHUCKY Insulin Glargine (Insulin Glargine,Hum.Rec.Anlog 100 Unit/Ml 10 Ml Vial) 50 unit SUBCUT DAILY [facility] Last Admin: 03/15/22 08:02 Dose: 50 unit Documented By: CHUCKY Insulin Human Lispro (Insulin Lispro 100 Unit/Ml 3 Ml Vial) 0 unit SUBCUT QIDACHS [facility]; Protocol Last Admin: 03/15/22 08:03 Dose: 2 unit Documented By: CHUCKY Isosorbide Mononitrate (Isosorbide Mononitrate 30 Mg Tab.Er.24h) 30 mg PO DAILY [facility]; Protocol Last Admin: 03/15/22 08:00 Dose: 30 mg Documented By: CHUCKY Loratadine (Loratadine 10 Mg Tablet) 10 mg PO DAILY [facility] Last Admin: 03/15/22 08:01 Dose: 10 mg Documented By: CHUCKY Multivitamins/Vitamin C (Multivitamin Tablet) 1 tab PO DAILY [facility] Last Admin: 03/15/22 07:59 Dose: 1 tab Documented By: CHUCKY Non-Formulary Medication (Buprenorphine) 1 patch TOPICAL QWEEK [facility] Nystatin/Triamcinolone Acetonide (Nystatin/Triamcinolone Cream 15 Gm Tube) 1 appl TOPICAL BID [facility] Last Admin: 03/15/22 10:27 Dose: 1 appl Documented By: CHUCKY Omeprazole (Omeprazole 20 Mg Capsule.Dr) 20 mg PO DAILY@0630 [facility] Last Admin: 03/15/22 05:57 Dose: 20 mg Documented By: CATINA Ondansetron HCl (Ondansetron Hcl 4 Mg/2 Ml Vial) 4 mg IVPUSH Q8H PRN PRN Reason: Nausea and Vomiting Oxycodone HCl (Oxycodone Hcl Immed Release 5 Mg Tablet) 5 mg PO Q6H PRN PRN Reason: severe pain Last Admin: 03/14/22 22:31 Dose: 5 mg Documented By: CATINA Pharmacy Consult (Consult Rx Perform Med Rec) 1 each MISCELLANE ONCE PRN PRN Reason: probable admission Prednisone (Prednisone 5 Mg Tablet) 12.5 mg PO DAILY [facility] Last Admin: 03/15/22 08:00 Dose: 12.5 mg Documented By: CHUCKY Sacubitril/Valsartan (Sacubitril/Valsartan 49/51 1 Tab Tablet) 1 tab PO BID [facility]; Protocol Last Admin: 03/15/22 08:01 Dose: 1 tab Documented By: CHUCKY Senna/Docusate Sodium (Sennosides/Docusate Sodium Tablet) 1 tab PO BEDTIME [facility] Last Admin: 03/14/22 21:17 Dose: 1 tab Documented By: CATINA Sitagliptin Phosphate (Sitagliptin Phosphate 25 Mg Tablet) 25 mg PO DAILY [facility] Last Admin: 03/15/22 08:01 Dose: 25 mg Documented By: CHUCKY Sodium Chloride (0.9 % Sodium Chloride Flush 3 Ml Syringe) 3 ml IVFLUSH QSHIFT [facility] Last Admin: 03/15/22 08:01 Dose: 3 ml Documented By: CHUCKY Tamsulosin HCl (Tamsulosin Hcl 0.4 Mg Capsule) 0.4 mg PO DAILY@1730 [facility] Last Admin: 03/14/22 16:16 Dose: 0.4 mg Documented By: TAMAR Vitamin D (Cholecalciferol (Vitamin D3) 25 Mcg Tablet) 25 mcg PO DAILY [facility] Last Admin: 03/15/22 07:59 Dose: 25 mcg Documented By: CHUCKY Labs CBC & Chem 7: 03/14/22 05:42 03/15/22 06:03 Labs: Laboratory Results - last 24 hr 03/14/22 03/14/22 03/14/22 11:00 15:58 20:14 Anion Gap Estim Creat Clear Calc Estimated GFR POC Glucose 334 H 272 H 281 H Random Glucose Calcium Magnesium B-Natriuretic Peptide 03/15/22 03/15/22 03/15/22 06:03 06:03 07:23 Anion Gap 15 Estim Creat Clear Calc 25.9 Estimated GFR 19 POC Glucose 140 H Random Glucose 125 H Calcium 8.7 Magnesium 2.0 B-Natriuretic Peptide 124 H TTE 03/14/22 - Normal left ventricular cavity size.? There is severely? increased left ventricular wall thickness.? The left ventricular systolic function is normal.? The visually estimated ejection? ? fraction is between 60-65%.? - Normal right ventricular cavity size and systolic function.? ? Microbiology Microbiology Results: Microbiology 03/13/22 13:02 Blood Culture - Preliminary Blood - Venous No growth after 24 hours. 03/13/22 13:02 Blood Culture - Preliminary Blood - Venous No growth after 24 hours. Assessment and Plan (1) HFrEF (heart failure with reduced ejection fraction): Status: Acute Plan d#3 67yo M with HTN, HFrEF, NICM, DM2, DM foot infection s/p R BKA, hx CVA, BLANCO not on CPAP, and psoriasis. ? Recently on HD for 2 mo but taken off 3 wk ago presumably due to renal recovery.? Presenting with 2 days of dyspnea + edema, found to be in acute respiratory distress due to volume overload. # acute hpyoxic respiratory failure due to acute/chronic HFrEF - continue to diurese with IV furosemide, Cardiology following, monitor I/O + BMP/BNP/Mg, continue neurohormonal modulation with Entresto + carvedilol + Imdur/hydralazine - wean O2 as tolerated # LAUREEN/CKD4, recent HD - Nephrology consultation; 24-hr CrCl collection # anemia of CKD - iron supplementation # HTN - continue Entresto, carvedilol, clonidine, hydralazine, Imdur # DM2 - basal/bolus insulin # plaque psoriasis - continue dapsone + prednisone # VTE ppx: UFH In my clinical judgment, the patient requires continued inpatient hospitalization for the following reasons: IV diuresis Time Spent With Patient Time: Total time managing care of this patient today ____ minutes. Quality Stroke Does the patient have a stroke diagnosis?: No VTE Prior VTE?: No VTE Risk Level:: Medical - moderate - high VTE Device Contraindication: N/A - Device Ordered VTE Drug Contraindication: N/A - Med Ordered
--- NOTE | 2022-03-15 13:06 | PM.PNCARD ---
Subjective Subjective Date of Service: 03/15/22 Interval history: Seen examined at bedside. Echocardiography report discussed with the patient. Continues to be significantly volume overloaded. On IV diuretics. Physical Exam Vital Signs: Last Vital Signs Temp 98.9 F 03/15/22 10:50 Pulse 76 03/15/22 11:38 Resp 18 03/15/22 11:38 BP 140/65 H 03/15/22 10:50 Pulse Ox 93 03/15/22 10:50 O2 Del Method 03/15/22 10:50 O2 Flow Rate 2 03/15/22 10:50 BMI result Body Mass Index 41.5 GENERAL APPEARANCE: SOB, hoarseness of voice. Edematous all over. NECK: no carotid bruit, + jugular venous distention. SKIN: no suspicious lesions, warm and dry. HEART: no murmurs, regular rate and rhythm. LUNGS: clear to auscultation bilaterally. ABDOMEN: soft, nontender. EXTREMITIES: right BKA. left leg edematous. PERIPHERAL PULSES: equal. NEUROLOGIC: No gross deficits, AAO X 3 Objective Labs and Meds Result diagrams: 03/14/22 05:42 03/15/22 06:03 Lab results: Laboratory Results - last 24 hr 03/14/22 03/14/22 03/15/22 15:58 20:14 06:03 Sodium 144 Potassium 4.6 D Chloride 102 Carbon Dioxide 32 H Anion Gap 15 BUN 59 H Creatinine 3.30 H Estim Creat Clear Calc 25.9 Estimated GFR 19 POC Glucose 272 H 281 H Random Glucose 125 H Calcium 8.7 Magnesium 2.0 B-Natriuretic Peptide 03/15/22 03/15/22 03/15/22 06:03 07:23 10:53 Sodium Potassium Chloride Carbon Dioxide Anion Gap BUN Creatinine Estim Creat Clear Calc Estimated GFR POC Glucose 140 H 221 H Random Glucose Calcium Magnesium B-Natriuretic Peptide 124 H Progress Note: A&P Assessment and plan (1) Acute on chronic heart failure: Status: Acute Plan Pleasant 67 gentleman who has background of chronic kidney disease and heart failure with reduced ejection fraction presenting for congestive heart failure. Echocardiography showing severely increased left ventricular wall thickness with normal function. Clinically he is volume overloaded. Continue diuretics. Decrease the carvedilol to 12.5 mg twice a day. This may help for flow and may improve further diuresis. Increase hydralazine to 50 mg 3 times a day. He is on steroids for vasculitis. He is asking whether prednisone can be stopped. I think this requires discussion with Rheumatology before adjusting the does as he has known history of vasculitis which can be challenging to manage. We will follow along with you. Thank you for allowing me to participate in the care of your patient. Please feel free to contact me if you have any questions. Time Spent With Patient Time: Total time managing care of this patient today ____ minutes. Progress Note: Quality Stroke Does the patient have a stroke diagnosis?: No Procedures Date of Service Date of Service: 03/15/22
--- NOTE | 2022-03-15 14:27 | PM.PNNEP ---
Subjective Subjective Date of Service: 03/15/22 Interval history: still c/o dyspnea + generalized edema Urine ourput is sluggish Physical Exam Vital Signs: Vital Signs: Last Vital Signs Temp 98.9 F 03/15/22 10:50 Pulse 76 03/15/22 11:38 Resp 18 03/15/22 11:38 BP 140/65 H 03/15/22 10:50 Pulse Ox 93 03/15/22 10:50 O2 Del Method 03/15/22 10:50 O2 Flow Rate 2 03/15/22 10:50 BMI result Body Mass Index 41.5 GENERAL APPEARANCE: SOB, hoarseness of voice. Edematous all over. NECK: no carotid bruit, + jugular venous distention. SKIN: no suspicious lesions, warm and dry. HEART: no murmurs, regular rate and rhythm. LUNGS: clear to auscultation bilaterally. ABDOMEN: soft, nontender. EXTREMITIES: right BKA. left leg edematous. PERIPHERAL PULSES: equal. NEUROLOGIC: No gross deficits, AAO X 3 Objective Data Labs CBC & Chem 7: 03/14/22 05:42 03/15/22 06:03 Labs: Laboratory Results - last 24 hr 03/14/22 03/14/22 03/15/22 15:58 20:14 06:03 Sodium 144 Potassium 4.6 D Chloride 102 Carbon Dioxide 32 H Anion Gap 15 BUN 59 H Creatinine 3.30 H Estim Creat Clear Calc 25.9 Estimated GFR 19 POC Glucose 272 H 281 H Random Glucose 125 H Calcium 8.7 Magnesium 2.0 B-Natriuretic Peptide 03/15/22 03/15/22 03/15/22 06:03 07:23 10:53 Sodium Potassium Chloride Carbon Dioxide Anion Gap BUN Creatinine Estim Creat Clear Calc Estimated GFR POC Glucose 140 H 221 H Random Glucose Calcium Magnesium B-Natriuretic Peptide 124 H Microbiology Microbiology Results: Microbiology 03/13/22 13:02 Blood - Venous Blood Culture - Preliminary No growth after 24 hours. 03/13/22 13:02 Blood - Venous Blood Culture - Preliminary No growth after 24 hours. Procedures Date of Service Date of Service: 03/15/22 Assessment & Plan Assessment and plan (1) CKD (chronic kidney disease): Status: Acute (2) Acute on chronic heart failure: Status: Acute Plan [address] [address] Event Note Signed Patient: Joo Gonzales Jr MR#: [id number] : 1955 Acct:[id number] Age/Sex: 67 / M Loc: [facility] [id number] ?? ? Attending Dr: Wallace Fischer MD cc: ~ Event Note Date of Service: 03/14/22 Event Note: 67yo M with HTN, HFrEF, NICM, DM2, DM foot infection s/p R BKA, hx CVA, BLANCO not on CPAP, and psoriasis. ? Recently on HD for 2 mo but taken off 3 wk ago presumably due to renal recovery.? Presenting with 2 days of dyspnea + edema, found to be in acute respiratory distress due to volume overload. # LAUREEN/CKD4, recent HD # acute respiratory failure due to acute/chronic HFrEF # anemia of CKD # HTN # DM2 - Low Salt diet - Fluid restriction - Will start IV furosemid- drip at 10 mg / hr - Can max upto 20mg/ hr - Diuril 500 mg x 1dose - Contineu BP meds - On Enteresto ( Has a ARB - Will continue for now ) - Ordered 24 hr Urine - Hold HD as he is acute ( Cr around 3)- No eed for Hd based on Labs - iron supplementation - DM management as per - pt has a Permcath - HD on Thursday if no improvemnet n 24 hrs and basedon 24 hr Urine D/w Med team Will follow Full consult to follow Time Spent With Patient Time: Total time managing care of this patient today ____ minutes. Progress Note: Quality Stroke Does the patient have a stroke diagnosis?: No
[2022-03-15] MEDS: Furosemide 200 MG in 0.9 % Sodium Chloride 80 ML IVCONT (15:23)
[2022-03-15] MEDS: hydrALAZINE HCl 50 MG TABLET PO ×2 (15:25→21:42)
[2022-03-15] MEDS: Tamsulosin HCL 0.4 MG CAPSULE PO (17:01)
[2022-03-15] MEDS: oxyCODONE HCl Immed Release 5 MG TABLET PO (18:18)
[2022-03-15] MEDS: Sennosides/Docusate Sodium TABLET 1 TAB PO (21:42)
[2022-03-15] MEDS: carvediloL 12.5 MG TABLET PO (21:42)
[2022-03-16] VITALS (10 sets, daily range): BP systolic 124–182; BP diastolic 58–81; PULSE 68–92; RESP 16–18; TEMP 36.1–36.4; O2SAT 91–98
[2022-03-16] MEDS: Heparin Sodium,Porcine 5,000 UNIT/ML VIAL 5000 UNIT SUBCUT ×2 (05:48→16:47)
[2022-03-16] MEDS: Omeprazole 20 MG CAPSULE.DR PO (05:49)
[2022-03-16 07:14] LABS: B Type Natriuretic Peptide 115 pg/mL (<100)
[2022-03-16 07:49] LABS: Anion Gap 13 (12-20); Blood Urea Nitrogen 62 mg/dL (9-16); Calcium 8.7 mg/dL (8.4-10.2); Carbon Dioxide 32 mmol/L (22-29); Chloride 100 mmol/L (96-108); Creatinine Clr Calc Pharmacy 28.4; Estimated Glomerular Filt Rate 21; Glucose Random 131 mg/dL (60-115); Potassium 3.6 mmol/L (3.3-5.1); Sodium 141 mmol/L (135-145)
[2022-03-16] MEDS: predniSONE 5 MG TABLET 12.5 MG PO (10:13)
[2022-03-16] MEDS: DULoxetine HCl 30 MG CAPSULE.DR PO (10:13)
[2022-03-16] MEDS: Insulin Glargine,Hum.rec.anlog 100 UNIT/ML 10 ML VIAL 50 UNIT SUBCUT (10:13)
[2022-03-16] MEDS: Loratadine 10 MG TABLET PO (10:14)
[2022-03-16] MEDS: Dapsone 25 MG TABLET 100 MG PO (10:14)
[2022-03-16] MEDS: Atorvastatin Calcium 40 MG TABLET PO (10:14)
[2022-03-16] MEDS: Multivitamin TABLET 1 TAB PO (10:14)
[2022-03-16] MEDS: SITagliptin Phosphate 25 MG TABLET PO (10:15)
[2022-03-16] MEDS: Cholecalciferol (Vitamin D3) 25 MCG TABLET PO (10:15)
[2022-03-16] MEDS: Aspirin Enteric Coated 81 MG TABLET.DR PO (10:15)
[2022-03-16] MEDS: cloNIDine HCL 0.1 MG TABLET PO ×3 (10:15→21:18)
[2022-03-16] MEDS: Sacubitril/Valsartan 49/51 1 TAB TABLET PO ×2 (10:16→21:18)
[2022-03-16] MEDS: hydrALAZINE HCl 50 MG TABLET PO ×3 (10:16→21:18)
[2022-03-16] MEDS: Nystatin/Triamcinolone Cream 15 GM TUBE 1 APPL TOPICAL (10:16)
[2022-03-16] MEDS: Fluticasone Propionate Nasal 16 GM SPRAY 1 SPRAY NOSTRIL-B (10:16)
[2022-03-16] MEDS: carvediloL 12.5 MG TABLET PO ×2 (10:16→21:18)
[2022-03-16] MEDS: 0.9 % Sodium Chloride Flush 3 ML SYRINGE IVFLUSH ×3 (10:17→21:19)
[2022-03-16] MEDS: Isosorbide Mononitrate 30 MG TAB.ER.24H PO (10:19)
[2022-03-16] MEDS: Ferrous Sulfate 324 MG TABLET.DR PO ×3 (10:22→16:47)
[2022-03-16] MEDS: Furosemide 200 MG in 0.9 % Sodium Chloride 80 ML IVCONT (11:13)
[2022-03-16] MEDS: Insulin Lispro 100 UNIT/ML 3 ML VIAL SUBCUT ×3 (11:53→21:18)
[2022-03-16] MEDS: Albuterol/Iprat 2.5/0.5MG 3 ML AMPUL.NEB INHALE ×3 (12:05→19:27)
--- NOTE | 2022-03-16 12:30 | HO.PM.IMPN ---
Subjective Subjective Date of Service: 03/16/22 Interval History: Still quite swollen + dyspneic SCr stabilized Review of Systems Review of Systems: Yes all other systems are reviewed and are negative Physical Exam Vital Signs: Vital Signs: Last Vital Signs Temp 97.2 F 03/16/22 10:47 Pulse 75 03/16/22 12:06 Resp 18 03/16/22 12:06 BP 140/75 H 03/16/22 10:47 Pulse Ox 97 03/16/22 10:47 O2 Del Method 03/16/22 10:47 O2 Flow Rate 2 03/16/22 10:47 BMI result Body Mass Index 41.5 Gen: in no acute distress HEENT: sclera anicteric, moist mucus membranes Neck: supple, R subclavian Permacath Lungs: clear to auscultation bilaterally Heart: regular rate and rhythm, no murmurs Abd: soft, non-tender, distended, morbidly obese Ext: 3+ LLE edema, s/p R BKA Skin: warm/well-perfused, extensive psoriatic plaques Neuro: alert and oriented x3, no focal findings Psych: appropriate affect Objective Data Active Medications Acetaminophen (Acetaminophen 325 Mg Tablet) 650 mg PO Q6H PRN PRN Reason: Pain, Mild (Pain Scale 1-3) Albuterol Sulfate (Albuterol Sulfate 90 Mcg 8 Gm Inhaler) 2 puff INHALE Q4H PRN PRN Reason: Wheezing Albuterol/Ipratropium (Albuterol/Iprat 2.5/0.5mg 3 Ml Ampul.Neb) 3 ml INHALE RQID [facility] Last Admin: 03/16/22 12:05 Dose: 3 ml Documented By: LIO Aspirin (Aspirin Enteric Coated 81 Mg Tablet.) 81 mg PO DAILY [facility] Last Admin: 03/16/22 10:15 Dose: 81 mg Documented By: CHUCKY Atorvastatin Calcium (Atorvastatin Calcium 40 Mg Tablet) 40 mg PO DAILY [facility] Last Admin: 03/16/22 10:14 Dose: 40 mg Documented By: CHUCKY Carvedilol (Carvedilol 12.5 Mg Tablet) 12.5 mg PO BID [facility]; Protocol Last Admin: 03/16/22 10:16 Dose: 12.5 mg Documented By: CHUCKY Clonidine HCl (Clonidine Hcl 0.1 Mg Tablet) 0.1 mg PO TID [facility]; Protocol Last Admin: 03/16/22 10:15 Dose: 0.1 mg Documented By: CHUCKY Dapsone (Dapsone 25 Mg Tablet) 100 mg PO DAILY [facility] Last Admin: 03/16/22 10:14 Dose: 100 mg Documented By: CHUCKY Dextrose (Dextrose 50 % 25 Gm/50 Ml Syringe) 25 gm IVPUSH Q15M PRN; Protocol PRN Reason: per Hypoglycemia Standing Ord. Duloxetine HCl (Duloxetine Hcl 30 Mg Capsule.) 30 mg PO DAILY [facility] Last Admin: 03/16/22 10:13 Dose: 30 mg Documented By: CHUCKY Ferrous Sulfate (Ferrous Sulfate 324 Mg Tablet.) 324 mg PO TIDWM [facility] Last Admin: 03/16/22 11:53 Dose: 324 mg Documented By: CHUCKY Fluticasone Propionate (Fluticasone Propionate Nasal 16 Gm [place]) 1 spray NOSTRIL-B DAILY [facility] Last Admin: 03/16/22 10:16 Dose: 1 spray Documented By: CHUCKY Glucose (Glucose Gel 15 Gm Gel..Gram.) 15 gm PO Q15M PRN; Protocol PRN Reason: per Hypoglycemia Standing Ord. Heparin Sodium (Porcine) (Heparin Sodium,Porcine 5,000 Unit/Ml Vial) 5,000 unit SUBCUT Q12H [facility] Last Admin: 03/16/22 05:48 Dose: 5,000 unit Documented By: CATINA Hydralazine HCl (Hydralazine Hcl 50 Mg Tablet) 50 mg PO TID [facility]; Protocol Last Admin: 03/16/22 10:16 Dose: 50 mg Documented By: CHUCKY Furosemide 200 mg/ Sodium (Chloride) 100 mls @ 5 mls/hr IVCONT .Q20H [facility] Last Admin: 03/16/22 11:13 Dose: 10 mg/hr, 5 mls/hr Documented By: CHUCKY Insulin Glargine (Insulin Glargine,Hum.Rec.Anlog 100 Unit/Ml 10 Ml Vial) 50 unit SUBCUT DAILY [facility] Last Admin: 03/16/22 10:13 Dose: 50 unit Documented By: CHUCKY Insulin Human Lispro (Insulin Lispro 100 Unit/Ml 3 Ml Vial) 0 unit SUBCUT QIDACHS [facility]; Protocol Last Admin: 03/16/22 11:53 Dose: 4 unit Documented By: CHUCKY Isosorbide Mononitrate (Isosorbide Mononitrate 30 Mg Tab.Er.24h) 30 mg PO DAILY [facility]; Protocol Last Admin: 03/16/22 10:19 Dose: 30 mg Documented By: CHUCKY Loratadine (Loratadine 10 Mg Tablet) 10 mg PO DAILY [facility] Last Admin: 03/16/22 10:14 Dose: 10 mg Documented By: CHUCKY Multivitamins/Vitamin C (Multivitamin Tablet) 1 tab PO DAILY [facility] Last Admin: 03/16/22 10:14 Dose: 1 tab Documented By: CHUCKY Non-Formulary Medication (Buprenorphine) 1 patch TOPICAL QWEEK [facility] Nystatin/Triamcinolone Acetonide (Nystatin/Triamcinolone Cream 15 Gm Tube) 1 appl TOPICAL BID [facility] Last Admin: 03/16/22 10:16 Dose: 1 appl Documented By: CHUCKY Omeprazole (Omeprazole 20 Mg Capsule.Dr) 20 mg PO DAILY@0630 [facility] Last Admin: 03/16/22 05:49 Dose: 20 mg Documented By: CATINA Ondansetron HCl (Ondansetron Hcl 4 Mg/2 Ml Vial) 4 mg IVPUSH Q8H PRN PRN Reason: Nausea and Vomiting Oxycodone HCl (Oxycodone Hcl Immed Release 5 Mg Tablet) 5 mg PO Q6H PRN PRN Reason: severe pain Last Admin: 03/15/22 18:18 Dose: 5 mg Documented By: CHUCKY Pharmacy Consult (Consult Rx Perform Med Rec) 1 each MISCELLANE ONCE PRN PRN Reason: probable admission Prednisone (Prednisone 5 Mg Tablet) 12.5 mg PO DAILY [facility] Last Admin: 03/16/22 10:13 Dose: 12.5 mg Documented By: CHUCKY Sacubitril/Valsartan (Sacubitril/Valsartan 1 Tab Tablet) 1 tab PO BID [facility]; Protocol Last Admin: 03/16/22 10:16 Dose: 1 tab Documented By: CHUCKY Senna/Docusate Sodium (Sennosides/Docusate Sodium Tablet) 1 tab PO BEDTIME [facility] Last Admin: 03/15/22 21:42 Dose: 1 tab Documented By: CATINA Sitagliptin Phosphate (Sitagliptin Phosphate 25 Mg Tablet) 25 mg PO DAILY [facility] Last Admin: 03/16/22 10:15 Dose: 25 mg Documented By: CHUCKY Sodium Chloride (0.9 % Sodium Chloride Flush 3 Ml Syringe) 3 ml IVFLUSH QSHIFT [facility] Last Admin: 03/16/22 10:17 Dose: 3 ml Documented By: CHUCKY Tamsulosin HCl (Tamsulosin Hcl 0.4 Mg Capsule) 0.4 mg PO DAILY@1730 [facility] Last Admin: 03/15/22 17:01 Dose: 0.4 mg Documented By: CHUCKY Vitamin D (Cholecalciferol (Vitamin D3) 25 Mcg Tablet) 25 mcg PO DAILY [facility] Last Admin: 03/16/22 10:15 Dose: 25 mcg Documented By: CHUCKY Labs CBC & Chem 7: 03/14/22 05:42 03/16/22 05:45 Labs: Laboratory Results - last 24 hr 03/15/22 03/15/22 03/16/22 16:43 20:29 05:45 Anion Gap 13 Estim Creat Clear Calc 28.4 Estimated GFR 21 POC Glucose 283 H 275 H Random Glucose 131 H Calcium 8.7 Magnesium 2.0 B-Natriuretic Peptide 03/16/22 03/16/22 03/16/22 05:45 07:21 10:55 Anion Gap Estim Creat Clear Calc Estimated GFR POC Glucose 124 H 171 H Random Glucose Calcium Magnesium B-Natriuretic Peptide 115 H Microbiology Microbiology Results: Microbiology 03/13/22 13:02 Blood Culture - Preliminary Blood - Venous No growth after 48 hours. 03/13/22 13:02 Blood Culture - Preliminary Blood - Venous No growth after 48 hours. Assessment and Plan (1) HFrEF (heart failure with reduced ejection fraction): Status: Acute Plan d#4 67yo M with HTN, HFrEF, NICM, DM2, DM foot infection s/p R BKA, hx CVA, BLANCO not on CPAP, and psoriasis. ? Recently on HD for 2 mo but taken off 3 wk ago presumably due to renal recovery.? Presenting with 2 days of dyspnea + edema, found to be in acute respiratory distress due to volume overload. # acute hpyoxic respiratory failure due to acute/chronic HFrEF - negative 3.4L cumulatively. 1 dose chlorthiazide IV given yesterday. continue to diurese with IV furosemide, Cardiology following, monitor I/O + BMP/BNP/Mg, continue neurohormonal modulation with Entresto + carvedilol + Imdur/hydralazine - wean O2 as tolerated # LAUREEN/CKD4, recent HD - Nephrology consultation; 24-hr CrCl collection; SCr plateuaed around 3 # anemia of CKD - iron supplementation # HTN - continue Entresto, carvedilol, clonidine, hydralazine, Imdur # DM2 - basal/bolus insulin # plaque psoriasis - continue dapsone + prednisone # VTE ppx: UFH In my clinical judgment, the patient requires continued inpatient hospitalization for the following reasons: IV diuresis Time Spent With Patient Time: Total time managing care of this patient today ____ minutes. Quality Stroke Does the patient have a stroke diagnosis?: No VTE Prior VTE?: No VTE Risk Level:: Medical - moderate - high VTE Device Contraindication: N/A - Device Ordered VTE Drug Contraindication: N/A - Med Ordered
[2022-03-16 13:25] LABS: Total Protein Urine Random 133 mg/dL (<12)
--- NOTE | 2022-03-16 13:54 | PM.PNNEP ---
Subjective Subjective Date of Service: 03/16/22 Interval history: Still quite swollen + dyspneic SCr stabilized Physical Exam Vital Signs: Vital Signs: Last Vital Signs Temp 97.2 F 03/16/22 10:47 Pulse 75 03/16/22 12:06 Resp 18 03/16/22 12:06 BP 140/75 H 03/16/22 10:47 Pulse Ox 97 03/16/22 10:47 O2 Del Method 03/16/22 10:47 O2 Flow Rate 2 03/16/22 10:47 BMI result Body Mass Index 41.5 GENERAL APPEARANCE: SOB, hoarseness of voice. Edematous all over. NECK: no carotid bruit, + jugular venous distention. SKIN: no suspicious lesions, warm and dry. HEART: no murmurs, regular rate and rhythm. LUNGS: clear to auscultation bilaterally. ABDOMEN: soft, nontender. EXTREMITIES: right BKA. left leg edematous. PERIPHERAL PULSES: equal. NEUROLOGIC: No gross deficits, AAO X 3 Objective Data Labs CBC & Chem 7: 03/14/22 05:42 03/16/22 05:45 Labs: Laboratory Results - last 24 hr 03/15/22 03/15/22 03/16/22 16:43 20:29 05:45 Sodium 141 Potassium 3.6 D Chloride 100 Carbon Dioxide 32 H Anion Gap 13 BUN 62 H Creatinine 3.01 H Estim Creat Clear Calc 28.4 Estimated GFR 21 POC Glucose 283 H 275 H Random Glucose 131 H Calcium 8.7 Magnesium 2.0 B-Natriuretic Peptide U Random Total Protein 03/16/22 03/16/22 03/16/22 05:45 07:21 10:55 Sodium Potassium Chloride Carbon Dioxide Anion Gap BUN Creatinine Estim Creat Clear Calc Estimated GFR POC Glucose 124 H 171 H Random Glucose Calcium Magnesium B-Natriuretic Peptide 115 H U Random Total Protein 03/16/22 11:00 Sodium Potassium Chloride Carbon Dioxide Anion Gap BUN Creatinine Estim Creat Clear Calc Estimated GFR POC Glucose Random Glucose Calcium Magnesium B-Natriuretic Peptide U Random Total Protein 133 H Microbiology Microbiology Results: Microbiology 03/13/22 13:02 Blood - Venous Blood Culture - Preliminary No growth after 48 hours. 03/13/22 13:02 Blood - Venous Blood Culture - Preliminary No growth after 48 hours. Procedures Date of Service Date of Service: 03/16/22 Assessment & Plan Assessment and plan (1) CKD (chronic kidney disease): Status: Acute (2) Acute on chronic heart failure: Status: Acute Plan 67yo M with HTN, HFrEF, NICM, DM2, DM foot infection s/p R BKA, hx CVA, BLANCO not on CPAP, and psoriasis. ? Recently on HD for 2 mo but taken off 3 wk ago presumably due to renal recovery.? Presenting with 2 days of dyspnea + edema, found to be in acute respiratory distress due to volume overload. # LAUREEN/CKD4, recent HD # acute respiratory failure due to acute/chronic HFrEF # anemia of CKD # HTN # DM2 - Low Salt diet - Fluid restriction - Continue IV Lasix - drip at 10 mg / hr - Can max upto 20mg/ hr ifdneeded - Diuril 500 mg x 1dose today - Contineu BP meds - On Enteresto ( Has a ARB - Will continue for now ) - Ordered 24 hr Urine. - Hold HD as he is acute ( Cr around 3)- N need for Hd based on Labs- d/w Nursing - They have nor started collection . I asked them to start in AM - iron supplementation - DM management as per - pt has a Permcath - Hold HDfor now - Pt has a Permcath - Needs to come out if he does not need HD D/w Med team Will follow Full consult to follow Time Spent With Patient Time: Total time managing care of this patient today ____ minutes. Progress Note: Quality Stroke Does the patient have a stroke diagnosis?: No
[2022-03-16] MEDS: oxyCODONE HCl Immed Release 5 MG TABLET PO ×2 (16:45→22:43)
[2022-03-16] MEDS: Tamsulosin HCL 0.4 MG CAPSULE PO (16:47)
--- NOTE | 2022-03-16 20:08 | PM.PNCARD ---
Subjective Subjective Date of Service: 03/16/22 Interval history: Seen and examined. Diuresing well. Physical Exam Vital Signs: Last Vital Signs Temp 97.6 F 03/16/22 19:22 Pulse 75 03/16/22 19:29 Resp 16 03/16/22 19:29 BP 176/80 H 03/16/22 19:22 Pulse Ox 92 03/16/22 19:22 O2 Del Method 03/16/22 19:22 O2 Flow Rate 2 03/16/22 19:22 BMI result Body Mass Index 41.5 GENERAL APPEARANCE: SOB, hoarseness of voice. Edematous all over. NECK: no carotid bruit, + jugular venous distention. SKIN: no suspicious lesions, warm and dry. HEART: no murmurs, regular rate and rhythm. LUNGS: clear to auscultation bilaterally. ABDOMEN: soft, nontender. EXTREMITIES: right BKA. left leg edematous. PERIPHERAL PULSES: equal. NEUROLOGIC: No gross deficits, AAO X 3 Objective Labs and Meds Result diagrams: 03/14/22 05:42 03/16/22 05:45 Lab results: Laboratory Results - last 24 hr 03/15/22 03/16/22 03/16/22 20:29 05:45 05:45 Sodium 141 Potassium 3.6 D Chloride 100 Carbon Dioxide 32 H Anion Gap 13 BUN 62 H Creatinine 3.01 H Estim Creat Clear Calc 28.4 Estimated GFR 21 POC Glucose 275 H Random Glucose 131 H Calcium 8.7 Magnesium 2.0 B-Natriuretic Peptide 115 H U Random Total Protein 03/16/22 03/16/22 03/16/22 07:21 10:55 11:00 Sodium Potassium Chloride Carbon Dioxide Anion Gap BUN Creatinine Estim Creat Clear Calc Estimated GFR POC Glucose 124 H 171 H Random Glucose Calcium Magnesium B-Natriuretic Peptide U Random Total Protein 133 H 03/16/22 15:06 Sodium Potassium Chloride Carbon Dioxide Anion Gap BUN Creatinine Estim Creat Clear Calc Estimated GFR POC Glucose 250 H Random Glucose Calcium Magnesium B-Natriuretic Peptide U Random Total Protein Progress Note: A&P Assessment and plan (1) Acute on chronic heart failure: Status: Acute Plan 67 male with acute on chronic HF. Diuresing. Responding to diuretics. Still overloaded. BP ok. BB dose was decreased yesterday. We will follow along. Time Spent With Patient Time: Total time managing care of this patient today ____ minutes. Progress Note: Quality Stroke Does the patient have a stroke diagnosis?: No Procedures Date of Service Date of Service: 03/16/22
[2022-03-16] MEDS: Sennosides/Docusate Sodium TABLET 1 TAB PO (21:18)
[2022-03-17] VITALS (10 sets, daily range): BP systolic 119–176; BP diastolic 57–81; PULSE 67–779; RESP 14–18; TEMP 36.2–36.9; O2SAT 92–96
[2022-03-17] MEDS: Omeprazole 20 MG CAPSULE.DR PO (05:32)
[2022-03-17] MEDS: oxyCODONE HCl Immed Release 5 MG TABLET PO ×2 (05:32→11:28)
[2022-03-17] MEDS: Heparin Sodium,Porcine 5,000 UNIT/ML VIAL 5000 UNIT SUBCUT ×2 (05:32→17:26)
[2022-03-17 07:04] LABS: Anion Gap 13 (12-20); Blood Urea Nitrogen 66 mg/dL (9-16); Calcium 8.6 mg/dL (8.4-10.2); Carbon Dioxide 32 mmol/L (22-29); Chloride 100 mmol/L (96-108); Creatinine Clr Calc Pharmacy 26.8; Estimated Glomerular Filt Rate 20; Glucose Random 220 mg/dL (60-115); Magnesium 1.9 mg/dL (1.6-2.6); Potassium 3.9 mmol/L (3.3-5.1); Sodium 141 mmol/L (135-145)
[2022-03-17 07:10] LABS: B Type Natriuretic Peptide 97 pg/mL (<100)
[2022-03-17] MEDS: Insulin Lispro 100 UNIT/ML 3 ML VIAL SUBCUT ×4 (07:39→21:18)
[2022-03-17] MEDS: Dapsone 25 MG TABLET 100 MG PO (07:40)
[2022-03-17] MEDS: Atorvastatin Calcium 40 MG TABLET PO (07:40)
[2022-03-17] MEDS: Loratadine 10 MG TABLET PO (07:40)
[2022-03-17] MEDS: SITagliptin Phosphate 25 MG TABLET PO (07:41)
[2022-03-17] MEDS: Isosorbide Mononitrate 30 MG TAB.ER.24H PO (07:41)
[2022-03-17] MEDS: Aspirin Enteric Coated 81 MG TABLET.DR PO (07:41)
[2022-03-17] MEDS: hydrALAZINE HCl 50 MG TABLET PO ×3 (07:41→21:19)
[2022-03-17] MEDS: predniSONE 5 MG TABLET 12.5 MG PO (07:42)
[2022-03-17] MEDS: Multivitamin TABLET 1 TAB PO (07:42)
[2022-03-17] MEDS: cloNIDine HCL 0.1 MG TABLET PO ×3 (07:42→21:18)
[2022-03-17] MEDS: Ferrous Sulfate 324 MG TABLET.DR PO ×3 (07:42→17:26)
[2022-03-17] MEDS: carvediloL 12.5 MG TABLET PO ×2 (07:42→21:19)
[2022-03-17] MEDS: DULoxetine HCl 30 MG CAPSULE.DR PO (07:42)
[2022-03-17] MEDS: Nystatin/Triamcinolone Cream 15 GM TUBE 1 APPL TOPICAL ×2 (07:46→21:22)
[2022-03-17] MEDS: Fluticasone Propionate Nasal 16 GM SPRAY 1 SPRAY NOSTRIL-B (07:46)
[2022-03-17] MEDS: 0.9 % Sodium Chloride Flush 3 ML SYRINGE IVFLUSH ×2 (07:47→17:25)
[2022-03-17] MEDS: Insulin Glargine,Hum.rec.anlog 100 UNIT/ML 10 ML VIAL 50 UNIT SUBCUT (07:54)
[2022-03-17] MEDS: Cholecalciferol (Vitamin D3) 25 MCG TABLET PO (07:55)
[2022-03-17] MEDS: Sacubitril/Valsartan 49/51 1 TAB TABLET PO ×2 (07:56→21:18)
[2022-03-17] MEDS: Furosemide 200 MG in 0.9 % Sodium Chloride 80 ML IVCONT (07:59)
[2022-03-17] MEDS: Albuterol/Iprat 2.5/0.5MG 3 ML AMPUL.NEB INHALE ×4 (08:42→19:19)
--- NOTE | 2022-03-17 10:44 | HO.PM.IMPN ---
Subjective Subjective Date of Service: 03/17/22 Interval History: still c/o swelling + dyspnea thinks his dry weight is around 205 lb Review of Systems Review of Systems: Yes all other systems are reviewed and are negative Physical Exam Vital Signs: Vital Signs: Last Vital Signs Temp 97.2 F 03/17/22 07:16 Pulse 67 03/17/22 08:43 Resp 17 03/17/22 08:43 BP 119/57 L 03/17/22 07:16 Pulse Ox 96 03/17/22 07:16 O2 Del Method 03/17/22 07:16 O2 Flow Rate 2 03/17/22 07:16 BMI result Body Mass Index 41.5 Gen: in no acute distress HEENT: sclera anicteric, moist mucus membranes Neck: supple, R subclavian Permacath Lungs: clear to auscultation bilaterally Heart: regular rate and rhythm, no murmurs Abd: soft, non-tender, distended, morbidly obese Ext: 2+ LLE edema, s/p R BKA Skin: warm/well-perfused, extensive psoriatic plaques Neuro: alert and oriented x3, no focal findings Psych: appropriate affect Objective Data Active Medications Acetaminophen (Acetaminophen 325 Mg Tablet) 650 mg PO Q6H PRN PRN Reason: Pain, Mild (Pain Scale 1-3) Albuterol Sulfate (Albuterol Sulfate 90 Mcg 8 Gm Inhaler) 2 puff INHALE Q4H PRN PRN Reason: Wheezing Albuterol/Ipratropium (Albuterol/Iprat 2.5/0.5mg 3 Ml Ampul.Neb) 3 ml INHALE RQID [facility] Last Admin: 03/17/22 08:42 Dose: 3 ml Documented By: LIO Aspirin (Aspirin Enteric Coated 81 Mg Tablet.) 81 mg PO DAILY [facility] Last Admin: 03/17/22 07:41 Dose: 81 mg Documented By: CHUCKY Atorvastatin Calcium (Atorvastatin Calcium 40 Mg Tablet) 40 mg PO DAILY [facility] Last Admin: 03/17/22 07:40 Dose: 40 mg Documented By: CHUCKY Carvedilol (Carvedilol 12.5 Mg Tablet) 12.5 mg PO BID [facility]; Protocol Last Admin: 03/17/22 07:42 Dose: 12.5 mg Documented By: CHUCKY Clonidine HCl (Clonidine Hcl 0.1 Mg Tablet) 0.1 mg PO TID [facility]; Protocol Last Admin: 03/17/22 07:42 Dose: 0.1 mg Documented By: CHUCKY Dapsone (Dapsone 25 Mg Tablet) 100 mg PO DAILY [facility] Last Admin: 03/17/22 07:40 Dose: 100 mg Documented By: CHUCKY Dextrose (Dextrose 50 % 25 Gm/50 Ml Syringe) 25 gm IVPUSH Q15M PRN; Protocol PRN Reason: per Hypoglycemia Standing Ord. Duloxetine HCl (Duloxetine Hcl 30 Mg Capsule.) 30 mg PO DAILY [facility] Last Admin: 03/17/22 07:42 Dose: 30 mg Documented By: CHUCKY Ferrous Sulfate (Ferrous Sulfate 324 Mg Tablet.) 324 mg PO TIDWM [facility] Last Admin: 03/17/22 07:42 Dose: 324 mg Documented By: CHUCKY Fluticasone Propionate (Fluticasone Propionate Nasal 16 Gm [place]) 1 spray NOSTRIL-B DAILY [facility] Last Admin: 03/17/22 07:46 Dose: 1 spray Documented By: CHUCKY Glucose (Glucose Gel 15 Gm Gel..Gram.) 15 gm PO Q15M PRN; Protocol PRN Reason: per Hypoglycemia Standing Ord. Heparin Sodium (Porcine) (Heparin Sodium,Porcine 5,000 Unit/Ml Vial) 5,000 unit SUBCUT Q12H [facility] Last Admin: 03/17/22 05:32 Dose: 5,000 unit Documented By: ANDRY Hydralazine HCl (Hydralazine Hcl 50 Mg Tablet) 50 mg PO TID [facility]; Protocol Last Admin: 03/17/22 07:41 Dose: 50 mg Documented By: CHUCKY Furosemide 200 mg/ Sodium (Chloride) 100 mls @ 5 mls/hr IVCONT .Q20H [facility] Last Admin: 03/17/22 07:59 Dose: 10 mg/hr, 5 mls/hr Documented By: CHUCKY Insulin Glargine (Insulin Glargine,Hum.Rec.Anlog 100 Unit/Ml 10 Ml Vial) 50 unit SUBCUT DAILY [facility] Last Admin: 03/17/22 07:54 Dose: 50 unit Documented By: CHUCKY Insulin Human Lispro (Insulin Lispro 100 Unit/Ml 3 Ml Vial) 0 unit SUBCUT QIDACHS [facility]; Protocol Last Admin: 03/17/22 07:39 Dose: 6 unit Documented By: CHUCKY Isosorbide Mononitrate (Isosorbide Mononitrate 30 Mg Tab.Er.24h) 30 mg PO DAILY [facility]; Protocol Last Admin: 03/17/22 07:41 Dose: 30 mg Documented By: CHUCKY Loratadine (Loratadine 10 Mg Tablet) 10 mg PO DAILY [facility] Last Admin: 03/17/22 07:40 Dose: 10 mg Documented By: CHUCKY Multivitamins/Vitamin C (Multivitamin Tablet) 1 tab PO DAILY [facility] Last Admin: 03/17/22 07:42 Dose: 1 tab Documented By: CHUCKY Non-Formulary Medication (Buprenorphine) 1 patch TOPICAL QWEEK [facility] Nystatin/Triamcinolone Acetonide (Nystatin/Triamcinolone Cream 15 Gm Tube) 1 appl TOPICAL BID [facility] Last Admin: 03/17/22 07:46 Dose: 1 appl Documented By: CHUCKY Omeprazole (Omeprazole 20 Mg Capsule.Dr) 20 mg PO DAILY@0630 [facility] Last Admin: 03/17/22 05:32 Dose: 20 mg Documented By: ANDRY Ondansetron HCl (Ondansetron Hcl 4 Mg/2 Ml Vial) 4 mg IVPUSH Q8H PRN PRN Reason: Nausea and Vomiting Oxycodone HCl (Oxycodone Hcl Immed Release 5 Mg Tablet) 5 mg PO Q6H PRN PRN Reason: severe pain Last Admin: 03/17/22 05:32 Dose: 5 mg Documented By: ANDRY Pharmacy Consult (Consult Rx Perform Med Rec) 1 each MISCELLANE ONCE PRN PRN Reason: probable admission Prednisone (Prednisone 5 Mg Tablet) 12.5 mg PO DAILY [facility] Last Admin: 03/17/22 07:42 Dose: 12.5 mg Documented By: CHUCKY Sacubitril/Valsartan (Sacubitril/Valsartan 49/51 1 Tab Tablet) 1 tab PO BID [facility]; Protocol Last Admin: 03/17/22 07:56 Dose: 1 tab Documented By: CHUCKY Senna/Docusate Sodium (Sennosides/Docusate Sodium Tablet) 1 tab PO BEDTIME [facility] Last Admin: 03/16/22 21:18 Dose: 1 tab Documented By: ANDRY Sitagliptin Phosphate (Sitagliptin Phosphate 25 Mg Tablet) 25 mg PO DAILY [facility] Last Admin: 03/17/22 07:41 Dose: 25 mg Documented By: CHUCKY Sodium Chloride (0.9 % Sodium Chloride Flush 3 Ml Syringe) 3 ml IVFLUSH QSHIFT [facility] Last Admin: 03/17/22 07:47 Dose: 3 ml Documented By: CHUCKY Tamsulosin HCl (Tamsulosin Hcl 0.4 Mg Capsule) 0.4 mg PO DAILY@1730 [facility] Last Admin: 03/16/22 16:47 Dose: 0.4 mg Documented By: CHUCKY Vitamin D (Cholecalciferol (Vitamin D3) 25 Mcg Tablet) 25 mcg PO DAILY [facility] Last Admin: 03/17/22 07:55 Dose: 25 mcg Documented By: CHUCKY Labs CBC & Chem 7: 03/14/22 05:42 03/17/22 06:18 Labs: Laboratory Results - last 24 hr 03/16/22 03/16/22 03/16/22 10:55 11:00 15:06 Anion Gap Estim Creat Clear Calc Estimated GFR POC Glucose 171 H 250 H Random Glucose Calcium Magnesium B-Natriuretic Peptide U Random Total Protein 133 H 03/16/22 03/17/22 03/17/22 20:54 06:18 06:18 Anion Gap 13 Estim Creat Clear Calc 26.8 Estimated GFR 20 POC Glucose 321 H Random Glucose 220 H Calcium 8.6 Magnesium 1.9 B-Natriuretic Peptide 97 U Random Total Protein 03/17/22 07:15 Anion Gap Estim Creat Clear Calc Estimated GFR POC Glucose 209 H Random Glucose Calcium Magnesium B-Natriuretic Peptide U Random Total Protein Assessment and Plan (1) HFrEF (heart failure with reduced ejection fraction): Status: Acute Plan d#5 67yo M with HTN, HFrEF, NICM, DM2, DM foot infection s/p R BKA, hx CVA, BLANCO not on CPAP, and psoriasis. ? Recently on HD for 2 mo but taken off 3 wk ago presumably due to renal recovery.? Presenting with 2 days of dyspnea + edema, found to be in acute respiratory distress due to volume overload. # acute hpyoxic respiratory failure due to acute/chronic HFrEF - negative 3.3L cumulatively. 1 dose chlorthiazide IV given on 03/05/22. continue to diurese with IV furosemide- increase from 10 to 15 mg/hr - Cardiology following, monitor I/O + BMP/BNP/Mg, continue neurohormonal modulation with Entresto + carvedilol + Imdur/hydralazine - wean O2 as tolerated # LAUREEN/CKD4, recent HD - Nephrology consultation; 24-hr CrCl collection; SCr plateaued around 3-3.2 # anemia of CKD - iron supplementation # HTN - continue Entresto, carvedilol, clonidine, hydralazine, Imdur # DM2 with hyperglycemia - basal/bolus insulin- increase doses of bolus insulin # plaque psoriasis - continue dapsone + prednisone # VTE ppx: UFH In my clinical judgment, the patient requires continued inpatient hospitalization for the following reasons: IV diuresis Time Spent With Patient Time: Total time managing care of this patient today ____ minutes. Quality Stroke Does the patient have a stroke diagnosis?: No VTE Prior VTE?: No VTE Risk Level:: Medical - moderate - high VTE Device Contraindication: N/A - Device Ordered VTE Drug Contraindication: N/A - Med Ordered
--- NOTE | 2022-03-17 11:08 | PM.PNCARD ---
Subjective Subjective Date of Service: 03/17/22 Interval history: Seen and examined at bedside. Continues to be significantly volume overloaded. Physical Exam Vital Signs: Last Vital Signs Temp 97.2 F 03/17/22 07:16 Pulse 67 03/17/22 08:43 Resp 17 03/17/22 08:43 BP 119/57 L 03/17/22 07:16 Pulse Ox 96 03/17/22 07:16 O2 Del Method 03/17/22 07:16 O2 Flow Rate 2 03/17/22 07:16 BMI result Body Mass Index 41.5 GENERAL APPEARANCE: SOB, hoarseness of voice. Edematous all over. NECK: no carotid bruit, + jugular venous distention. SKIN: no suspicious lesions, warm and dry. HEART: no murmurs, regular rate and rhythm. LUNGS: clear to auscultation bilaterally. ABDOMEN: Distended, nontender, less tense compared to yesterday. EXTREMITIES: right BKA. left leg edematous. PERIPHERAL PULSES: equal. NEUROLOGIC: No gross deficits, AAO X 3 Objective Labs and Meds Result diagrams: 03/14/22 05:42 03/17/22 06:18 Lab results: Laboratory Results - last 24 hr 03/16/22 03/16/22 03/16/22 10:55 11:00 15:06 Sodium Potassium Chloride Carbon Dioxide Anion Gap BUN Creatinine Estim Creat Clear Calc Estimated GFR POC Glucose 171 H 250 H Random Glucose Calcium Magnesium B-Natriuretic Peptide U Random Total Protein 133 H 03/16/22 03/17/22 03/17/22 20:54 06:18 06:18 Sodium 141 Potassium 3.9 Chloride 100 Carbon Dioxide 32 H Anion Gap 13 BUN 66 H Creatinine 3.19 H Estim Creat Clear Calc 26.8 Estimated GFR 20 POC Glucose 321 H Random Glucose 220 H Calcium 8.6 Magnesium 1.9 B-Natriuretic Peptide 97 U Random Total Protein 03/17/22 07:15 Sodium Potassium Chloride Carbon Dioxide Anion Gap BUN Creatinine Estim Creat Clear Calc Estimated GFR POC Glucose 209 H Random Glucose Calcium Magnesium B-Natriuretic Peptide U Random Total Protein Progress Note: A&P Assessment and plan (1) Acute on chronic heart failure: Status: Acute Plan 67 male with acute on chronic HF. Diuresing. Responding to diuretics. Still overloaded. BP ok. BB dose was decreased. We will follow along. Time Spent With Patient Time: Total time managing care of this patient today ____ minutes. Progress Note: Quality Stroke Does the patient have a stroke diagnosis?: No Procedures Date of Service Date of Service: 03/17/22
--- NOTE | 2022-03-17 14:43 | PM.PNNEP ---
Subjective Subjective Date of Service: 03/17/22 Interval history: still c/o swelling + dyspnea Urine output sluggish on IV lasix drip Physical Exam Vital Signs: Vital Signs: Last Vital Signs Temp 97.5 F 03/17/22 11:18 Pulse 779 H 03/17/22 12:07 Resp 16 03/17/22 12:07 BP 121/57 L 03/17/22 11:18 Pulse Ox 94 03/17/22 11:18 O2 Del Method 03/17/22 11:18 O2 Flow Rate 2 03/17/22 11:18 BMI result Body Mass Index 41.5 GENERAL APPEARANCE: SOB, hoarseness of voice. Edematous all over. NECK: no carotid bruit, + jugular venous distention. SKIN: no suspicious lesions, warm and dry. HEART: no murmurs, regular rate and rhythm. LUNGS: clear to auscultation bilaterally. ABDOMEN: Distended, nontender, less tense compared to yesterday. EXTREMITIES: right BKA. left leg edematous. PERIPHERAL PULSES: equal. NEUROLOGIC: No gross deficits, AAO X 3 Objective Data Labs CBC & Chem 7: 03/14/22 05:42 03/17/22 06:18 Labs: Laboratory Results - last 24 hr 03/16/22 03/16/22 03/17/22 15:06 20:54 06:18 Sodium 141 Potassium 3.9 Chloride 100 Carbon Dioxide 32 H Anion Gap 13 BUN 66 H Creatinine 3.19 H Estim Creat Clear Calc 26.8 Estimated GFR 20 POC Glucose 250 H 321 H Random Glucose 220 H Calcium 8.6 Magnesium 1.9 B-Natriuretic Peptide 03/17/22 03/17/22 03/17/22 06:18 07:15 11:18 Sodium Potassium Chloride Carbon Dioxide Anion Gap BUN Creatinine Estim Creat Clear Calc Estimated GFR POC Glucose 209 H 209 H Random Glucose Calcium Magnesium B-Natriuretic Peptide 97 Microbiology Microbiology Results: Microbiology 03/13/22 13:02 Blood - Venous Blood Culture - Preliminary No growth after 48 hours. 03/13/22 13:02 Blood - Venous Blood Culture - Preliminary No growth after 48 hours. Procedures Date of Service Date of Service: 03/17/22 Assessment & Plan Assessment and plan (1) CKD (chronic kidney disease): Status: Acute (2) Acute on chronic heart failure: Status: Acute Plan 67yo M with HTN, HFrEF, NICM, DM2, DM foot infection s/p R BKA, hx CVA, BLANCO not on CPAP, and psoriasis. ? Recently on HD for 2 mo but taken off 3 wk ago presumably due to renal recovery.? Presenting with 2 days of dyspnea + edema, found to be in acute respiratory distress due to volume overload. # LAUREEN/CKD4, recent HD # acute respiratory failure due to acute/chronic HFrEF # anemia of CKD # HTN # DM2 - Low Salt diet - Fluid restriction - Continue IV Lasix - drip at 15 mg / hr - Diuril 500 mg x 2 days - Did not help - Contineu BP meds - On Enteresto ( Has a ARB - Will continue for now ) - 24 hr Urine in progress . - Plan HDin AM - HDnurses informed- Will be done in AM - iron supplementation - DM management as per - pt has a Permcath D/w Med team Will follow Full consult to follow Time Spent With Patient Time: Total time managing care of this patient today ____ minutes. Progress Note: Quality Stroke Does the patient have a stroke diagnosis?: No
[2022-03-17] MEDS: Tamsulosin HCL 0.4 MG CAPSULE PO (17:26)
[2022-03-17] MEDS: oxyCODONE HCl Immed Release 5 MG TABLET 10 MG PO (17:26)
[2022-03-17] MEDS: Sennosides/Docusate Sodium TABLET 1 TAB PO (21:19)
[2022-03-18] VITALS (9 sets, daily range): BP systolic 128–161; BP diastolic 60–74; PULSE 67–88; RESP 16–20; TEMP 35.9–36.7; O2SAT 93–95
[2022-03-18] MEDS: Furosemide 200 MG in 0.9 % Sodium Chloride 80 ML 7.5 MG IVCONT ×2 (01:13→12:18)
[2022-03-18] MEDS: oxyCODONE HCl Immed Release 5 MG TABLET 10 MG PO ×3 (02:07→21:35)
[2022-03-18] MEDS: Heparin Sodium,Porcine 5,000 UNIT/ML VIAL 5000 UNIT SUBCUT ×2 (06:23→16:10)
[2022-03-18] MEDS: Omeprazole 20 MG CAPSULE.DR PO (06:23)
[2022-03-18 07:22] LABS: Glucose, Whole Blood 99 mg/dL (60-115)
[2022-03-18 07:28] LABS: Anion Gap 13 (12-20); Blood Urea Nitrogen 71 mg/dL (9-16); Calcium 8.8 mg/dL (8.4-10.2); Carbon Dioxide 31 mmol/L (22-29); Chloride 101 mmol/L (96-108); Creatinine Clr Calc Pharmacy 26.8; Estimated Glomerular Filt Rate 20; Glucose Random 85 mg/dL (60-115); Magnesium 1.9 mg/dL (1.6-2.6); Sodium 141 mmol/L (135-145)
[2022-03-18 07:30] LABS: B Type Natriuretic Peptide 98 pg/mL (<100)
[2022-03-18] MEDS: Albuterol/Iprat 2.5/0.5MG 3 ML AMPUL.NEB INHALE ×3 (07:32→20:51)
[2022-03-18 07:49] LABS: HBS Num1 0.35 mIU/mL (0-7.99); HBc Num1 0.07 S/CO (0.00-0.79); HBsAGNum1 0.23 S/CO (0.00-0.99); Hepatitis B Core Antibody Nonreactive (Nonreactive); Hepatitis B Surface Antigen Negative (Negative); ~Hepatitis B Surface Antibody NONREACTIVE (Nonreactive)
[2022-03-18 12:03] LABS: Glucose, Whole Blood 141 mg/dL (60-115)
[2022-03-18] MEDS: Ferrous Sulfate 324 MG TABLET.DR PO ×2 (12:17→16:11)
[2022-03-18] MEDS: Insulin Lispro 100 UNIT/ML 3 ML VIAL SUBCUT ×3 (12:17→21:26)
--- NOTE | 2022-03-18 12:23 | P.PNIM_ITS ---
Subjective Subjective Date of Service: 03/18/22 Interval History: Still feels tired after HD. No appreciable improvement Review of Systems Denies chest pain Denies shortness of breath Denies nausea vomiting diarrhea Denies fever chills Physical Exam Vital Signs: Vital Signs: Last Vital Signs Temp 96.6 F L 03/18/22 12:00 Pulse 71 03/18/22 12:00 Resp 20 03/18/22 12:00 BP 130/60 03/18/22 12:00 Pulse Ox 94 03/18/22 12:00 O2 Del Method 03/18/22 12:00 O2 Flow Rate 2 03/18/22 12:00 BMI result Body Mass Index 41.5 Const: Other: Somnolent but arousable Resp: Other: Clear to auscultation bilaterally no rales rhonchi wheezes Cardio: Other: No S4; positive S1-S2; no S3 murmurs rubs or gallops GI: Other: Soft nontender nondistended normoactive bowel sounds Extrem: Other: Edema bilateral Objective Data Active Medications Acetaminophen (Acetaminophen 325 Mg Tablet) 650 mg PO Q6H PRN PRN Reason: Pain, Mild (Pain Scale 1-3) Albuterol Sulfate (Albuterol Sulfate 90 Mcg 8 Gm Inhaler) 2 puff INHALE Q4H PRN PRN Reason: Wheezing Albuterol/Ipratropium (Albuterol/Iprat 2.5/0.5mg 3 Ml Ampul.Neb) 3 ml INHALE RQID [facility] Last Admin: 03/18/22 11:51 Dose: Not Given Documented By: HERMINIA Non-Admin Reason: pt unavail. with Aspirin (Aspirin Enteric Coated 81 Mg Tablet.) 81 mg PO DAILY [facility] Last Admin: 03/18/22 09:02 Dose: Not Given Documented By: VIRGILIO Non-Admin Reason: Off unit: Dialysis Atorvastatin Calcium (Atorvastatin Calcium 40 Mg Tablet) 40 mg PO DAILY [facility] Last Admin: 03/18/22 09:02 Dose: Not Given Documented By: VIRGILIO Non-Admin Reason: Off unit: Dialysis Carvedilol (Carvedilol 12.5 Mg Tablet) 12.5 mg PO BID [facility]; Protocol Last Admin: 03/18/22 09:03 Dose: Not Given Documented By: VIRGILIO Non-Admin Reason: Off unit: Dialysis Clonidine HCl (Clonidine Hcl 0.1 Mg Tablet) 0.1 mg PO TID [facility]; Protocol Last Admin: 03/18/22 09:03 Dose: Not Given Documented By: VIRGILIO Non-Admin Reason: Off unit: Dialysis Dapsone (Dapsone 25 Mg Tablet) 100 mg PO DAILY [facility] Last Admin: 03/18/22 09:03 Dose: Not Given Documented By: VIRGILIO Non-Admin Reason: Off unit: Dialysis Dextrose (Dextrose 50 % 25 Gm/50 Ml Syringe) 25 gm IVPUSH Q15M PRN; Protocol PRN Reason: per Hypoglycemia Standing Ord. Duloxetine HCl (Duloxetine Hcl 30 Mg Capsule.) 30 mg PO DAILY [facility] Last Admin: 03/18/22 09:03 Dose: Not Given Documented By: VIRGILIO Non-Admin Reason: Off unit: Dialysis Ferrous Sulfate (Ferrous Sulfate 324 Mg Tablet.) 324 mg PO TIDWM [facility] Last Admin: 03/18/22 12:17 Dose: 324 mg Documented By: SPIKE Fluticasone Propionate (Fluticasone Propionate Nasal 16 Gm [place]) 1 spray NOSTRIL-B DAILY [facility] Last Admin: 03/18/22 09:03 Dose: Not Given Documented By: VIRGILIO Non-Admin Reason: Off unit: Dialysis Glucose (Glucose Gel 15 Gm Gel..Gram.) 15 gm PO Q15M PRN; Protocol PRN Reason: per Hypoglycemia Standing Ord. Heparin Sodium (Porcine) (Heparin Sodium,Porcine 5,000 Unit/Ml Vial) 5,000 unit SUBCUT Q12H [facility] Last Admin: 03/18/22 06:23 Dose: 5,000 unit Documented By: ANDRY Hydralazine HCl (Hydralazine Hcl 50 Mg Tablet) 50 mg PO TID [facility]; Protocol Last Admin: 03/18/22 09:03 Dose: Not Given Documented By: VIRGILIO Non-Admin Reason: Off unit: Dialysis Furosemide 200 mg/ Sodium (Chloride) 100 mls @ 7.5 mls/hr IVCONT .[id number] [facility] Last Admin: 03/18/22 12:18 Dose: 15 mg/hr, 7.5 mls/hr Documented By: SPIKE Insulin Glargine (Insulin Glargine,Hum.Rec.Anlog 100 Unit/Ml 10 Ml Vial) 50 unit SUBCUT DAILY [facility] Last Admin: 03/18/22 09:03 Dose: Not Given Documented By: VIRGILIO Non-Admin Reason: Off unit: Dialysis Insulin Human Lispro (Insulin Lispro 100 Unit/Ml 3 Ml Vial) 0 unit SUBCUT QIDACHS [facility]; Protocol Last Admin: 03/18/22 12:17 Dose: 2 unit Documented By: SPIKE Isosorbide Mononitrate (Isosorbide Mononitrate 30 Mg Tab.Er.24h) 30 mg PO DAILY [facility]; Protocol Last Admin: 03/18/22 09:03 Dose: Not Given Documented By: VIRGILIO Non-Admin Reason: Off unit: Dialysis Loratadine (Loratadine 10 Mg Tablet) 10 mg PO DAILY [facility] Last Admin: 03/18/22 09:04 Dose: Not Given Documented By: VIRGILIO Non-Admin Reason: Off unit: Dialysis Multivitamins/Vitamin C (Multivitamin Tablet) 1 tab PO DAILY [facility] Last Admin: 03/18/22 09:04 Dose: Not Given Documented By: VIRGILIO Non-Admin Reason: Off unit: Dialysis Non-Formulary Medication (Buprenorphine) 1 patch TOPICAL QWEEK [facility] Nystatin/Triamcinolone Acetonide (Nystatin/Triamcinolone Cream 15 Gm Tube) 1 appl TOPICAL BID [facility] Last Admin: 03/18/22 09:04 Dose: Not Given Documented By: VIRGILIO Non-Admin Reason: Off unit: Dialysis Omeprazole (Omeprazole 20 Mg Capsule.) 20 mg PO DAILY@0630 [facility] Last Admin: 03/18/22 06:23 Dose: 20 mg Documented By: ANDRY Ondansetron HCl (Ondansetron Hcl 4 Mg/2 Ml Vial) 4 mg IVPUSH Q8H PRN PRN Reason: Nausea and Vomiting Oxycodone HCl (Oxycodone Hcl Immed Release 5 Mg Tablet) 10 mg PO Q6H PRN PRN Reason: severe pain Last Admin: 03/18/22 12:17 Dose: 10 mg Documented By: SPIKE Pharmacy Consult (Consult Rx Perform Med Rec) 1 each MISCELLANE ONCE PRN PRN Reason: probable admission Prednisone (Prednisone 5 Mg Tablet) 12.5 mg PO DAILY [facility] Last Admin: 03/18/22 09:04 Dose: Not Given Documented By: VIRGILIO Non-Admin Reason: Off unit: Dialysis Sacubitril/Valsartan (Sacubitril/Valsartan 49/51 1 Tab Tablet) 1 tab PO BID [facility]; Protocol Last Admin: 03/18/22 09:05 Dose: Not Given Documented By: VIRGILIO Non-Admin Reason: Off unit: Dialysis Senna/Docusate Sodium (Sennosides/Docusate Sodium Tablet) 1 tab PO BEDTIME [facility] Last Admin: 03/17/22 21:19 Dose: 1 tab Documented By: ANDRY Sitagliptin Phosphate (Sitagliptin Phosphate 25 Mg Tablet) 25 mg PO DAILY [facility] Last Admin: 03/18/22 09:05 Dose: Not Given Documented By: VIRGILIO Non-Admin Reason: Off unit: Dialysis Sodium Chloride (0.9 % Sodium Chloride Flush 3 Ml Syringe) 3 ml IVFLUSH QSHIFT [facility] Last Admin: 03/18/22 09:02 Dose: Not Given Documented By: VIRGILIO Non-Admin Reason: Off unit: Dialysis Tamsulosin HCl (Tamsulosin Hcl 0.4 Mg Capsule) 0.4 mg PO DAILY@1730 [facility] Last Admin: 03/17/22 17:26 Dose: 0.4 mg Documented By: CHUCKY Vitamin D (Cholecalciferol (Vitamin D3) 25 Mcg Tablet) 25 mcg PO DAILY [facility] Last Admin: 03/18/22 09:03 Dose: Not Given Documented By: VIRGILIO Non-Admin Reason: Off unit: Dialysis Labs CBC & Chem 7: 03/14/22 05:42 03/18/22 05:31 Labs: Laboratory Results - last 24 hr 03/17/22 03/17/22 03/18/22 15:49 19:57 05:31 Anion Gap 13 Estim Creat Clear Calc 26.8 Estimated GFR 20 POC Glucose 231 H 318 H Random Glucose 85 Calcium 8.8 Magnesium 1.9 B-Natriuretic Peptide 03/18/22 03/18/22 03/18/22 05:31 07:19 11:58 Anion Gap Estim Creat Clear Calc Estimated GFR POC Glucose 99 141 H Random Glucose Calcium Magnesium B-Natriuretic Peptide 98 Assessment and Plan (1) HFrEF (heart failure with reduced ejection fraction): Status: Acute (2) Acute kidney injury: Status: Acute Plan d#5 67yo M with HTN, HFrEF, NICM, DM2, DM foot infection s/p R BKA, hx CVA, BLANCO not on CPAP, and psoriasis. ? Recently on HD for 2 mo but taken off 3 wk ago presumably due to renal recovery.? Presenting with 2 days of dyspnea + edema, found to be in acute respiratory distress due to volume overload. 1.Acute hpyoxic respiratory failure due to acute/chronic HFrEF - continue Lasix drip the pending renal input -strict I&O -follow renals/divalents 2.LAUREEN/CKD4, -HD today -await renal input 3. HTN -acceptable control on current therapies - continue Entresto, carvedilol, clonidine, hydralazine, Imdur 4.DM2 with hyperglycemia - basal/bolus insulin -adjust as indicated Full code Heparin Requires ongoing hospitalization for IV diuresis Time Spent With Patient Time: Total time managing care of this patient today ____ minutes. Quality Stroke Does the patient have a stroke diagnosis?: No VTE Prior VTE?: No VTE Risk Level:: Medical - moderate - high VTE Device Contraindication: N/A - Device Ordered VTE Drug Contraindication: N/A - Med Ordered
--- NOTE | 2022-03-18 12:59 | CONS_ITS ---
DATE OF SERVICE: 03/14/2022 REASON FOR CONSULTATION: Consult requested by the medical team to evaluate and help in management of patient with renal insufficiency and volume overload. HISTORY OF PRESENT ILLNESS: Patient is a 67-year-old male with past medical history of longstanding hypertension, history of CHF, type 2 diabetes mellitus, history of right BKA, peripheral vascular disease, who presented to the hospital with shortness of breath. Patient apparently has been on hemodialysis for 2 months, was taken off 3 weeks ago presumably due to renal recovery. He was going to [facility]. He does have a Perm-A-Cath in place. He presented with 2-day history of shortness of breath and leg edema and was found to have acute respiratory distress and volume overload. He was given IV Lasix with improvement of his symptoms. Renal consult has been requested to help with management of his renal insufficiency. The patient is resting in the bed and is feeling better. He denies to have any dysuria, urgency of urination, or frequency of urination. He is unclear if he was not compliant with his medication regimen. PAST MEDICAL HISTORY: History of longstanding hypertension; history of type 2 diabetes mellitus; history of CHF; diabetes mellitus with foot infection; status post right BKA; history of CVA; obstructive sleep apnea, not on CPAP; history of psoriasis. He was also having acute on chronic kidney disease/stage 4 CKD and was on renal replacement therapy and came off dialysis about 3 weeks ago. He does have a PermCath. PAST SURGICAL HISTORY: Includes right BKA. PERSONAL AND SOCIAL HISTORY: Patient is tobacco dependent. Does not drink significant amount of alcohol. FAMILY HISTORY: Include history of coronary artery disease. MEDICATIONS: As an outpatient and inpatient were reviewed in detail. PHYSICAL EXAMINATION: GENERAL: Patient is resting in the bed. Awake, alert, in no significant distress. VITAL SIGNS: Blood pressure was 162/80, pulse 78, afebrile. HEENT: Shows pupils equal bilaterally to light. Positive jugular venous distention noted. NECK: Supple. CARDIOVASCULAR SYSTEM: S1, S2 without rub or murmur. RESPIRATORY SYSTEM: Mild decreased in the bases. Bilateral basal crepitation and rhonchi were noted. Abdomen: Soft, obese, nontender. Bowel sounds normal. EXTREMITIES: Lower extremities showed 2+ edema bilaterally, status post right BKA. NEURO: Essentially nonfocal. LABORATORY DATA: Done today. Sodium 144, potassium 3.7, chloride 104, CO2 29, BUN 48, creatinine 2.79, hemoglobin 9.5, hematocrit 29.8, WBC 9.8, platelets 196. IMPRESSION: 1. 67-year-old male with acute kidney injury. Acute kidney injury in this patient is likely secondary to multifactorial disease including congestive heart failure with renal hypoperfusion. 2. Chronic kidney disease, stage 4 at baseline. The patient was on hemodialysis with worsening renal function, but is off hemodialysis for the last 3 weeks and has a PermCath. 3. Acute respiratory failure in the setting of acute on chronic CHF. 4. Anemia of chronic disease. 5. Hypertension. 6. Type 2 diabetes mellitus. RECOMMENDATION: At this juncture, I recommend strict 2 g sodium diet. I also recommend strict fluid restriction of 1500 cc per day. I advised the medical team to increase the dose of furosemide to q.8 hourly dosing. We will watch his renal function and there is no immediate indication for renal replacement therapy. He is not acidotic and hyperkalemic. If he can manage his volume with IV diuretics, we might be able to keep him off dialysis. I have ordered 24-hour urine collection to assess his urea and creatinine clearance. He should continue with his present antihypertensive regimen. He is on Entresto, which has ARB, but we can continue with this given CHF. Discontinue his other antihypertensive medication. We will check iron stores and consider giving him IV iron versus erythropoietin. Above plan was discussed with the medical team. Thank you for allowing me to participate in medical management. MD MELISSA Diop/SHELBIE / [phone]
[2022-03-18] MEDS: cloNIDine HCL 0.1 MG TABLET PO ×2 (13:56→21:26)
[2022-03-18] MEDS: hydrALAZINE HCl 50 MG TABLET PO ×2 (13:56→21:26)
[2022-03-18] MEDS: 0.9 % Sodium Chloride Flush 3 ML SYRINGE IVFLUSH (15:58)
[2022-03-18 15:59] LABS: Glucose, Whole Blood 158 mg/dL (60-115)
[2022-03-18] MEDS: Tamsulosin HCL 0.4 MG CAPSULE PO (16:11)
[2022-03-18 16:24] LABS: Urea, Random Urine 311 mg/dL
--- NOTE | 2022-03-18 17:03 | PM.PNCARD ---
Subjective Subjective Date of Service: 03/18/22 Principal diagnosis: CHF Interval history: Patient got dialyzed today about 2 kg. Also diuresing with IV Lasix drip. Patient continues to have shortness of breath and abdominal distention leg edema. Says he is not diuresed in off as yet. Plan for continue hemodialysis. Review of Systems Constitutional: Reports no additional constitutional complaints Cardiovascular: Reports Abdominal Distension, Denies chest pain, Denies rapid heart rate, Reports leg edema, Denies lightheadedness, Denies Loss of Consciousness, Reports dyspnea and Denies paroxysmal nocturnal dyspnea Respiratory: Reports no additional respiratory complaints and Reports dyspnea Gastrointestinal: Reports no additional gastrointestinal complaints Genitourinary: Reports no additional male genitourinary complaints Musculoskeletal: Reports no additional musculoskeletal complaints Reports system reviewed and no additional complaints, except as documented Psychiatric: Reports no additional psychiatric complaints Endocrine: Reports no additional endocrine complaints Physical Exam Vital Signs: Last Vital Signs Temp 97.2 F 03/18/22 15:49 Pulse 67 03/18/22 15:49 Resp 20 03/18/22 15:49 BP 130/63 03/18/22 15:49 Pulse Ox 95 03/18/22 15:49 O2 Del Method 03/18/22 15:49 O2 Flow Rate 2 03/18/22 15:49 BMI result Body Mass Index 41.5 GENERAL APPEARANCE: SOB, hoarseness of voice. Edematous all over. NECK: no carotid bruit, + jugular venous distention. SKIN: no suspicious lesions, warm and dry. HEART: no murmurs, regular rate and rhythm. LUNGS: clear to auscultation bilaterally. ABDOMEN: Distended, nontender, less tense compared to yesterday. EXTREMITIES: right BKA. left leg edematous. PERIPHERAL PULSES: equal. NEUROLOGIC: No gross deficits, AAO X 3 Objective Labs and Meds Result diagrams: 03/14/22 05:42 03/18/22 05:31 Lab results: Laboratory Results - last 24 hr 03/16/22 03/17/22 03/18/22 11:00 19:57 05:31 Sodium 141 Potassium 4.0 Chloride 101 Carbon Dioxide 31 H Anion Gap 13 BUN 71 H Creatinine 3.19 H Estim Creat Clear Calc 26.8 Estimated GFR 20 POC Glucose 318 H Random Glucose 85 Calcium 8.8 Magnesium 1.9 B-Natriuretic Peptide Ur Random Urea 311 03/18/22 03/18/22 03/18/22 05:31 07:19 11:58 Sodium Potassium Chloride Carbon Dioxide Anion Gap BUN Creatinine Estim Creat Clear Calc Estimated GFR POC Glucose 99 141 H Random Glucose Calcium Magnesium B-Natriuretic Peptide 98 Ur Random Urea 03/18/22 15:53 Sodium Potassium Chloride Carbon Dioxide Anion Gap BUN Creatinine Estim Creat Clear Calc Estimated GFR POC Glucose 158 H Random Glucose Calcium Magnesium B-Natriuretic Peptide Ur Random Urea Progress Note: A&P Assessment and plan (1) Acute on chronic heart failure: Status: Acute Assessment and Plan: Acute heart failure with preserved ejection fraction is this elderly man with advancing renal disease of unclear etiology. Currently getting IV Lasix drip and diuresing rapidly. Also getting hemodialysis. Plan is to continue to dialysis. Continue removal of fluid. Continue aggressive blood pressure control which is currently well optimized. Continue current antihypertensive therapy. LV ejection fraction is now normalized although might have had prior diagnosis of cardiomyopathy. Currently on Entresto, which will need to be closely followed given that he has advanced renal dysfunction. Continue carvedilol. Hold off on spironolactone given his advanced renal dysfunction. Overall prognosis is guarded. Eventually require ischemic workup. Will continue to follow with you Time Spent With Patient Time: Total time managing care of this patient today ____ minutes. Progress Note: Quality Stroke Does the patient have a stroke diagnosis?: No Procedures Date of Service Date of Service: 03/18/22
[2022-03-18 20:06] LABS: Glucose, Whole Blood 218 mg/dL (60-115)
[2022-03-18] MEDS: Sennosides/Docusate Sodium TABLET 1 TAB PO (21:26)
[2022-03-18] MEDS: Sacubitril/Valsartan 49/51 1 TAB TABLET PO (21:26)
[2022-03-18] MEDS: Nystatin/Triamcinolone Cream 15 GM TUBE 1 APPL TOPICAL (21:36)
[2022-03-18] MEDS: carvediloL 12.5 MG TABLET PO (22:06)
[2022-03-19] VITALS (8 sets, daily range): BP systolic 120–143; BP diastolic 58–68; PULSE 68–78; RESP 16–20; TEMP 36.1–36.2; O2SAT 93–98
[2022-03-19] MEDS: Furosemide 200 MG in 0.9 % Sodium Chloride 80 ML 7.5 MG IVCONT ×2 (02:29→12:52)
[2022-03-19] MEDS: Omeprazole 20 MG CAPSULE.DR PO (04:53)
[2022-03-19] MEDS: Heparin Sodium,Porcine 5,000 UNIT/ML VIAL 5000 UNIT SUBCUT (04:53)
[2022-03-19 07:44] LABS: Glucose, Whole Blood 214 mg/dL (60-115)
[2022-03-19] MEDS: Albuterol/Iprat 2.5/0.5MG 3 ML AMPUL.NEB INHALE ×3 (08:20→19:07)
[2022-03-19] MEDS: Aspirin Enteric Coated 81 MG TABLET.DR PO (08:36)
[2022-03-19] MEDS: cloNIDine HCL 0.1 MG TABLET PO ×2 (08:36→20:05)
[2022-03-19] MEDS: Dapsone 25 MG TABLET 100 MG PO (08:36)
[2022-03-19] MEDS: Sacubitril/Valsartan 49/51 1 TAB TABLET PO ×2 (08:36→20:05)
[2022-03-19] MEDS: Isosorbide Mononitrate 30 MG TAB.ER.24H PO (08:36)
[2022-03-19] MEDS: predniSONE 5 MG TABLET 12.5 MG PO (08:37)
[2022-03-19] MEDS: SITagliptin Phosphate 25 MG TABLET PO (08:37)
[2022-03-19] MEDS: Loratadine 10 MG TABLET PO (08:37)
[2022-03-19] MEDS: DULoxetine HCl 30 MG CAPSULE.DR PO (08:37)
[2022-03-19] MEDS: hydrALAZINE HCl 50 MG TABLET PO ×2 (08:37→20:06)
[2022-03-19] MEDS: Ferrous Sulfate 324 MG TABLET.DR PO ×2 (08:37→12:22)
[2022-03-19] MEDS: Multivitamin TABLET 1 TAB PO (08:37)
[2022-03-19] MEDS: Cholecalciferol (Vitamin D3) 25 MCG TABLET PO (08:37)
[2022-03-19] MEDS: carvediloL 12.5 MG TABLET PO ×2 (08:37→20:06)
[2022-03-19] MEDS: Atorvastatin Calcium 40 MG TABLET PO (08:37)
[2022-03-19] MEDS: Insulin Glargine,Hum.rec.anlog 100 UNIT/ML 10 ML VIAL 50 UNIT SUBCUT (08:38)
[2022-03-19] MEDS: 0.9 % Sodium Chloride Flush 3 ML SYRINGE IVFLUSH (08:38)
[2022-03-19] MEDS: Insulin Lispro 100 UNIT/ML 3 ML VIAL SUBCUT ×3 (08:38→20:25)
[2022-03-19] MEDS: Nystatin/Triamcinolone Cream 15 GM TUBE 1 APPL TOPICAL ×2 (08:46→20:10)
[2022-03-19] MEDS: Fluticasone Propionate Nasal 16 GM SPRAY 1 SPRAY NOSTRIL-B (08:46)
[2022-03-19] MEDS: oxyCODONE HCl Immed Release 5 MG TABLET 10 MG PO (08:50)
--- NOTE | 2022-03-19 10:21 | P.CDIC_ITS ---
CDI Concurrent Query Documentation Clarification: PHYSICIAN'S DOCUMENTATION REQUEST Date of Query: 03/19/22 1021 Patient Name: Joo Hinds Jr Admit Date: 03/13/22 Dear Doctor, A review of the medical record indicates additional documentation may be needed. Please review below and update the documentation accordingly. Clinical Indicators: Is there a diagnosis that correlates with the findings below: Risk Factors/Clinical Indicators/Treatments BMI: 41.6 Height: 5ft 5in Weight: 113.4kg Per RN shift assessments: Abdomen large, round, obese If possible, please provide an associated diagnosis related to the abnormal BMI, such as: For a BMI >= 40: * Severe or Morbid Obesity * Overweight * Obesity * Due to excess calories * Drug induced * Due to other cause * With alveolar hypoventilation * Without alveolar hypoventilation Or: * BMI is not significant * Other (please specify) * Unable to determine Use of terms such as suspected, likely, concern for, or probable (associated with a specific diagnosis that is being evaluated, monitored, or treated as if it exists) are acceptable and can be coded in the inpatient setting, when documented at the time of discharge. Thank you, Eusebia Carrillo, MS, RN, CCRN Extension: [phone] Please use your independent medical judgment in providing your response. THIS QUERY IS PART OF THE PERMANENT MEDICAL RECORD Provider Response: Other Other Diagnosis: Morbid obesity without alveolrar hypoventilation
[2022-03-19 11:17] LABS: MANUAL DIFF FLAG NO
[2022-03-19 11:19] LABS: Basophils Percent Auto 0.3 % (0-2); Hematocrit 29.4 % (42.0-52.0); Hemoglobin 9.3 g/dl (14.0-18.0); Imm Gran Abs Auto 0.08 X10*3/uL (0.00-0.03); Imm Gran Pct Auto 1.1 % (0.0-0.4); Lymphocytes Absolute Auto 0.8 X10*3/uL (1.2-4.9); Mean Corpuscular HGB Conc 31.6 g/dl (31.0-36.0); Mean Corpuscular Hemoglobin 30.2 pg (27.0-33.0); Mean Corpuscular Volume 95.5 fL (80.0-98.0); Mean Platelet Volume 11.8 fL (9.4-12.4); Monocytes Absolute Auto 0.5 X10*3/uL (0.1-1.2); Monocytes Percent Auto 7.6 % (2-11); Neutrophils Absolute Auto 5.6 x10*3/uL (2.0-8.3); Platelet Count 165 X10*3/uL (160-400); Red Blood Count 3.08 X10*6/uL (4.60-5.80); Red Cell Distribution Width 14.7 % (11.0-16.0)
[2022-03-19 11:20] LABS: Glucose, Whole Blood 161 mg/dL (60-115)
[2022-03-19 11:36] LABS: Alanine Aminotransferase 15 U/L (0-40); Albumin Level 3.3 g/dL (3.5-5.0); Alkaline Phosphatase 61 U/L (39-117); Anion Gap 13 (12-20); Aspartate Amino Transferase 13 U/L (5-37); Bilirubin Total 0.4 mg/dL (0.0-1.0); Blood Urea Nitrogen 56 mg/dL (9-16); Carbon Dioxide 27 mmol/L (22-29); Chloride 101 mmol/L (96-108); Creatinine Clr Calc Pharmacy 27.6; Estimated Glomerular Filt Rate 20; Glucose Random 167 mg/dL (60-115); Potassium 4.3 mmol/L (3.3-5.1); Sodium 137 mmol/L (135-145); Total Protein 5.8 g/dL (6.5-8.0)
--- NOTE | 2022-03-19 12:39 | W.PM.DNNEP ---
Subjective Subjective Principal diagnosis: CHF This patient was seen during dialysis. Physical Exam Vital Signs: Vital Signs: Last Vital Signs Temp 97.0 F 03/19/22 11:19 Pulse 68 03/19/22 11:48 Resp 16 03/19/22 11:48 BP 120/58 L 03/19/22 11:19 Pulse Ox 93 03/19/22 11:19 O2 Del Method 03/19/22 11:19 O2 Flow Rate 2 03/19/22 11:19 BMI result Body Mass Index 41.5 Const: Other: Somnolent but arousable General: cooperative, no acute distress, alert and awake Nutritional Appearance: well nourished Orientation/consciousness: patient oriented x3 Limitations: no limitations HEENT: Head: Yes normal to inspection and Yes atraumatic Ears: hearing grossly normal bilaterally and external ears normal General nose exam: Normal external nose present, no nasal discharge noted and no epistaxis Face and sinus: Yes normal facial exam, No abrasion and No laceration Mouth: Normal oral and palatal mucosa present, no drooling and no muffled voice Eyes: General: appearance normal, both eyes and all related structures Periorbital: periorbital findings normal Eyelids: Yes eyelids normal Conjunctivae: conjunctivae normal Pupils: Equal, round and reactive pupils present EOM: EOMs intact bilaterally Neck: Neck: Yes normal visual inspection, Yes full ROM and Yes no lymphadenopathy Chest: Chest palpation & inspection: normal inspection of the chest Resp: Other: Clear to auscultation bilaterally no rales rhonchi wheezes Effort & Inspection: normal respiratory effort, able to speak in complete sentences and labored Auscultation: rhonchi throughout Cardio: Other: No S4; positive S1-S2; no S3 murmurs rubs or gallops Rate: regular rate Rhythm: regular rhythm GI: Other: Soft nontender nondistended normoactive bowel sounds Inspection: Yes normal to inspection Palpation (GI): Soft to palpation, not firm, nontender, no guarding and not rigid Neuro: General: patient oriented x3 and moves all extremities Cranial nerves: Yes Equal, round and reactive pupils present Cognition (Neuro): normal cognition Motor exam (neuro): 5/5 motor strength present throughout Sensory Exam: Normal double simultaneous stimulation for sensation Coordination: [id number] test normal Extrem: Other: Edema bilateral Psych: Appearance: grossly normal Mental Status: mental status grossly normal Affect: normal affect Attitude: cooperative Thought process: Normal thought process present Thought content: Normal thought content present Insight: Good insight present (Psych) Assessment & Plan Assessment and plan (1) Acute on chronic heart failure: Status: Acute Assessment and Plan: Acute heart failure with preserved ejection fraction is this elderly man with advancing renal disease of unclear etiology. Currently getting IV Lasix drip and diuresing rapidly. Also getting hemodialysis. Plan is to continue to dialysis. Continue removal of fluid. Continue aggressive blood pressure control which is currently well optimized. Continue current antihypertensive therapy. LV ejection fraction is now normalized although might have had prior diagnosis of cardiomyopathy. Currently on Entresto, which will need to be closely followed given that he has advanced renal dysfunction. Continue carvedilol. Hold off on spironolactone given his advanced renal dysfunction. Overall prognosis is guarded. Eventually require ischemic workup. (2) CKD (chronic kidney disease): Status: Acute (3) Acute kidney injury: Status: Acute Assessment and Plan: 7yo M with HTN, HFrEF, NICM, DM2, DM foot infection s/p R BKA, hx CVA, BLANCO not on CPAP, and psoriasis. ? Recently on HD for 2 mo but taken off 3 wk ago presumably due to renal recovery.? Presenting with 2 days of dyspnea + edema, found to be in acute respiratory distress due to volume overload. # LAUREEN/CKD4, recent HD # acute respiratory failure due to acute/chronic HFrEF # anemia of CKD # HTN # DM2 - Low Salt diet - Fluid restriction - Continue? IV Lasix - drip at 15 mg / hr - Diuril 500 mg x 2 days - Did not help - Continue BP meds - On Enteresto ( Has a ARB - Will continue for now ) -? 24 hr Urine pending for creat cl dialysis yesterday today and MWF - iron supplementation if iron low (ordered labs) - DM management as per - pt has a Permcath Time Spent With Patient Time: Total time managing care of this patient today ____ minutes. Procedures Date of Service Date of Service: 03/19/22
--- NOTE | 2022-03-19 12:55 | P.PNCA_ITS ---
Subjective Subjective Date of Service: 03/19/22 Principal diagnosis: CHF, renal failure Interval history: Patient continues to say that he short of breath and also fluid overloaded with abdominal distension as well as leg edema. This is not much improved. Not res ponding much to IV Lasix, charted output is very low, question inaccurate. He is very emotional about lack of his improvement. Blood pressure is currently stable. Review of Systems Constitutional: Reports no additional constitutional complaints Cardiovascular: Reports edema, Reports leg edema and Reports dyspnea Respiratory: Reports dyspnea Musculoskeletal: Reports no additional musculoskeletal complaints Physical Exam Vital Signs: Last Vital Signs Temp 97.0 F 03/19/22 11:19 Pulse 68 03/19/22 11:48 Resp 16 03/19/22 11:48 BP 120/58 L 03/19/22 11:19 Pulse Ox 93 03/19/22 11:19 O2 Del Method 03/19/22 11:19 O2 Flow Rate 2 03/19/22 11:19 BMI result Body Mass Index 41.5 Const General: cooperative, comfortable and in distress mild and respiratory Nutritional Appearance: obese Orientation/consciousness: patient oriented x3 Neck Neck: Yes trachea midline and Yes supple Resp Effort & Inspection: normal respiratory effort Auscultation: wheezes and breath sounds absent bilateral (bases) Cardio Palpation: normal PMI Rate: regular rate Rhythm: regular rhythm Heart sounds: S1 normal heart sound present, S2 normal heart sound present, no click, no gallops, no murmurs and no rubs GI Inspection: Yes Abdominal wall edema and Yes distended Auscultation: normal bowel sounds Neuro General: patient oriented x3 and no focal motor deficits Extrem General: Yes edema Objective Labs and Meds Result diagrams: 03/19/22 11:13 03/19/22 11:13 Lab results: Laboratory Results - last 24 hr 03/16/22 03/18/22 03/18/22 11:00 05:31 15:53 WBC RBC Hgb Hct MCV MCH MCHC RDW Plt Count MPV Immature Gran % (Auto) Neut % (Auto) Lymph % (Auto) Branch % (Auto) Eos % (Auto) Baso % (Auto) Lymph # (Auto) Branch # (Auto) Eos # (Auto) Baso # (Auto) Abs Immat Gran (auto) Absolute Neuts (auto) Absolute Nucleated RBC Nucleated RBC % (auto) Sodium Potassium Chloride Carbon Dioxide Anion Gap BUN Creatinine Estim Creat Clear Calc Estimated GFR POC Glucose 158 H Random Glucose Calcium Total Bilirubin AST ALT Alkaline Phosphatase Total Protein Albumin Ur Random Urea 311 Hep Bs Antigen Negative Hep Bs Antibody NONREACTIVE Hep B Core Total Ab Nonreactive 03/18/22 03/19/22 03/19/22 20:02 07:10 11:13 WBC 7.0 RBC 3.08 L Hgb 9.3 L Hct 29.4 L MCV 95.5 MCH 30.2 MCHC 31.6 RDW 14.7 Plt Count 165 MPV 11.8 Immature Gran % (Auto) 1.1 H Neut % (Auto) 80.0 H Lymph % (Auto) 11.0 L Branch % (Auto) 7.6 Eos % (Auto) 0.0 Baso % (Auto) 0.3 Lymph # (Auto) 0.8 L Branch # (Auto) 0.5 Eos # (Auto) 0.0 Baso # (Auto) 0.0 Abs Immat Gran (auto) 0.08 H Absolute Neuts (auto) 5.6 Absolute Nucleated RBC 0.000 Nucleated RBC % (auto) 0.0 Sodium Potassium Chloride Carbon Dioxide Anion Gap BUN Creatinine Estim Creat Clear Calc Estimated GFR POC Glucose 218 H 214 H Random Glucose Calcium Total Bilirubin AST ALT Alkaline Phosphatase Total Protein Albumin Ur Random Urea Hep Bs Antigen Hep Bs Antibody Hep B Core Total Ab 03/19/22 03/19/22 11:13 11:15 WBC RBC Hgb Hct MCV MCH MCHC RDW Plt Count MPV Immature Gran % (Auto) Neut % (Auto) Lymph % (Auto) Branch % (Auto) Eos % (Auto) Baso % (Auto) Lymph # (Auto) Branch # (Auto) Eos # (Auto) Baso # (Auto) Abs Immat Gran (auto) Absolute Neuts (auto) Absolute Nucleated RBC Nucleated RBC % (auto) Sodium 137 Potassium 4.3 Chloride 101 Carbon Dioxide 27 Anion Gap 13 BUN 56 H Creatinine 3.10 H Estim Creat Clear Calc 27.6 Estimated GFR 20 POC Glucose 161 H Random Glucose 167 H Calcium 9.0 Total Bilirubin 0.4 AST 13 ALT 15 Alkaline Phosphatase 61 Total Protein 5.8 L Albumin 3.3 L Ur Random Urea Hep Bs Antigen Hep Bs Antibody Hep B Core Total Ab Progress Note: A&P Assessment and plan (1) Acute on chronic heart failure: Status: Acute Assessment and Plan: Acute on chronic heart failure now with normalized LV systolic function. Patient has severe LVH. Also has renal failure. Question infiltrative disorder need to be ruled out but can be worked up as outpatient. He still appears to be significantly fluid overloaded. Not responding much to IV diuretics at this point in time. Continue hemodialysis for volume removal. Continue other antihypertensives. Blood pressure is currently well optimized. Prognosis is guarded. Will follow with you Time Spent With Patient Time: Total time managing care of this patient today ____ minutes. Progress Note: Quality Stroke Does the patient have a stroke diagnosis?: No Procedures Date of Service Date of Service: 03/19/22
[2022-03-19 13:18] LABS: Ferritin 156 ng/mL (20-250); Iron 72 mcg/dL (45-160); Percent Iron Saturation 32 % (15-50); Total Iron Binding Capacity 226 mcg/dL (228-428); Unsaturated Iron Binding 154 ug/dL
--- NOTE | 2022-03-19 13:57 | MHC.CM.PN ---
Patient is on IV Lasix and not yet medically cleared for dc. Home with services is the goal and CM will continue to follow.
--- NOTE | 2022-03-19 15:02 | P.PNIM_ITS ---
Subjective Subjective Date of Service: 03/19/22 Interval History: Mood improved this day Review of Systems Denies chest pain Denies shortness of breath Denies nausea vomiting diarrhea Denies fever chills Physical Exam Vital Signs: Vital Signs: Last Vital Signs Temp 97.0 F 03/19/22 11:19 Pulse 68 03/19/22 11:48 Resp 16 03/19/22 11:48 BP 120/58 L 03/19/22 11:19 Pulse Ox 93 03/19/22 11:19 O2 Del Method 03/19/22 11:19 O2 Flow Rate 2 03/19/22 11:19 BMI result Body Mass Index 41.5 Const: Other: Somnolent but arousable Resp: Other: Clear to auscultation bilaterally no rales rhonchi wheezes Cardio: Other: No S4; positive S1-S2; no S3 murmurs rubs or gallops GI: Other: Soft nontender nondistended normoactive bowel sounds Extrem: Other: Edema bilateral Objective Data Active Medications Acetaminophen (Acetaminophen 325 Mg Tablet) 650 mg PO Q6H PRN PRN Reason: Pain, Mild (Pain Scale 1-3) Albuterol Sulfate (Albuterol Sulfate 90 Mcg 8 Gm Inhaler) 2 puff INHALE Q4H PRN PRN Reason: Wheezing Albuterol/Ipratropium (Albuterol/Iprat 2.5/0.5mg 3 Ml Ampul.Neb) 3 ml INHALE RQID [facility] Last Admin: 03/19/22 14:46 Dose: Not Given Documented By: SHANE Non-Admin Reason: Off unit: Dialysis Aspirin (Aspirin Enteric Coated 81 Mg Tablet.) 81 mg PO DAILY [facility] Last Admin: 03/19/22 08:36 Dose: 81 mg Documented By: VIRGILIO Atorvastatin Calcium (Atorvastatin Calcium 40 Mg Tablet) 40 mg PO DAILY [facility] Last Admin: 03/19/22 08:37 Dose: 40 mg Documented By: VIRGILIO Carvedilol (Carvedilol 12.5 Mg Tablet) 12.5 mg PO BID [facility]; Protocol Last Admin: 03/19/22 08:37 Dose: 12.5 mg Documented By: VIRGILIO Clonidine HCl (Clonidine Hcl 0.1 Mg Tablet) 0.1 mg PO TID [facility]; Protocol Last Admin: 03/19/22 08:36 Dose: 0.1 mg Documented By: VIRGILIO Dapsone (Dapsone 25 Mg Tablet) 100 mg PO DAILY [facility] Last Admin: 03/19/22 08:36 Dose: 100 mg Documented By: VIRGILIO Dextrose (Dextrose 50 % 25 Gm/50 Ml Syringe) 25 gm IVPUSH Q15M PRN; Protocol PRN Reason: per Hypoglycemia Standing Ord. Duloxetine HCl (Duloxetine Hcl 30 Mg Capsule.) 30 mg PO DAILY [facility] Last Admin: 03/19/22 08:37 Dose: 30 mg Documented By: VIRGILIO Ferrous Sulfate (Ferrous Sulfate 324 Mg Tablet.) 324 mg PO TIDWM [facility] Last Admin: 03/19/22 12:22 Dose: 324 mg Documented By: VIRGILIO Fluticasone Propionate (Fluticasone Propionate Nasal 16 Gm [place]) 1 spray NOSTRIL-B DAILY [facility] Last Admin: 03/19/22 08:46 Dose: 1 spray Documented By: VIRGILIO Glucose (Glucose Gel 15 Gm Gel..Gram.) 15 gm PO Q15M PRN; Protocol PRN Reason: per Hypoglycemia Standing Ord. Heparin Sodium (Porcine) (Heparin Sodium,Porcine 5,000 Unit/Ml Vial) 5,000 unit SUBCUT Q12H [facility] Last Admin: 03/19/22 04:53 Dose: 5,000 unit Documented By: RAMO Hydralazine HCl (Hydralazine Hcl 50 Mg Tablet) 50 mg PO TID [facility]; Protocol Last Admin: 03/19/22 08:37 Dose: 50 mg Documented By: VIRGILIO Furosemide 200 mg/ Sodium (Chloride) 100 mls @ 7.5 mls/hr IVCONT .[id number] [facility] Last Admin: 03/19/22 12:52 Dose: 15 mg/hr, 7.5 mls/hr Documented By: VIRGILIO Insulin Glargine (Insulin Glargine,Hum.Rec.Anlog 100 Unit/Ml 10 Ml Vial) 50 unit SUBCUT DAILY [facility] Last Admin: 03/19/22 08:38 Dose: 50 unit Documented By: VIRGILIO Insulin Human Lispro (Insulin Lispro 100 Unit/Ml 3 Ml Vial) 0 unit SUBCUT QIDACHS [facility]; Protocol Last Admin: 03/19/22 11:21 Dose: 4 unit Documented By: VIRGILIO Isosorbide Mononitrate (Isosorbide Mononitrate 30 Mg Tab.Er.24h) 30 mg PO DAILY [facility]; Protocol Last Admin: 03/19/22 08:36 Dose: 30 mg Documented By: VIRGILIO Loratadine (Loratadine 10 Mg Tablet) 10 mg PO DAILY [facility] Last Admin: 03/19/22 08:37 Dose: 10 mg Documented By: VIRGILIO Multivitamins/Vitamin C (Multivitamin Tablet) 1 tab PO DAILY [facility] Last Admin: 03/19/22 08:37 Dose: 1 tab Documented By: VIRGILIO Non-Formulary Medication (Buprenorphine) 1 patch TOPICAL QWEEK [facility] Nystatin/Triamcinolone Acetonide (Nystatin/Triamcinolone Cream 15 Gm Tube) 1 appl TOPICAL BID [facility] Last Admin: 03/19/22 08:46 Dose: 1 appl Documented By: VIRGILIO Omeprazole (Omeprazole 20 Mg Capsule.Dr) 20 mg PO DAILY@0630 [facility] Last Admin: 03/19/22 04:53 Dose: 20 mg Documented By: RAMO Ondansetron HCl (Ondansetron Hcl 4 Mg/2 Ml Vial) 4 mg IVPUSH Q8H PRN PRN Reason: Nausea and Vomiting Oxycodone HCl (Oxycodone Hcl Immed Release 5 Mg Tablet) 10 mg PO Q6H PRN PRN Reason: severe pain Last Admin: 03/19/22 08:50 Dose: 10 mg Documented By: VIRGILIO Pharmacy Consult (Consult Rx Perform Med Rec) 1 each MISCELLANE ONCE PRN PRN Reason: probable admission Prednisone (Prednisone 5 Mg Tablet) 12.5 mg PO DAILY [facility] Last Admin: 03/19/22 08:37 Dose: 12.5 mg Documented By: VIRGILIO Sacubitril/Valsartan (Sacubitril/Valsartan 49/51 1 Tab Tablet) 1 tab PO BID [facility]; Protocol Last Admin: 03/19/22 08:36 Dose: 1 tab Documented By: VIRGILIO Senna/Docusate Sodium (Sennosides/Docusate Sodium Tablet) 1 tab PO BEDTIME [facility] Last Admin: 03/18/22 21:26 Dose: 1 tab Documented By: HUNG Sitagliptin Phosphate (Sitagliptin Phosphate 25 Mg Tablet) 25 mg PO DAILY [facility] Last Admin: 03/19/22 08:37 Dose: 25 mg Documented By: VIRGILIO Sodium Chloride (0.9 % Sodium Chloride Flush 3 Ml Syringe) 3 ml IVFLUSH QSHIFT [facility] Last Admin: 03/19/22 08:38 Dose: 3 ml Documented By: VIRGILIO Tamsulosin HCl (Tamsulosin Hcl 0.4 Mg Capsule) 0.4 mg PO DAILY@1730 [facility] Last Admin: 03/18/22 16:11 Dose: 0.4 mg Documented By: HUNG Vitamin D (Cholecalciferol (Vitamin D3) 25 Mcg Tablet) 25 mcg PO DAILY [facility] Last Admin: 03/19/22 08:37 Dose: 25 mcg Documented By: VIRGILIO Labs CBC & Chem 7: 03/19/22 11:13 03/19/22 11:13 Labs: Laboratory Results - last 24 hr 03/16/22 03/18/22 03/18/22 11:00 05:31 15:53 MCV MCH MCHC RDW Plt Count MPV Immature Gran % (Auto) Neut % (Auto) Lymph % (Auto) [place] % (Auto) Eos % (Auto) Baso % (Auto) Lymph # (Auto) [place] # (Auto) Eos # (Auto) Baso # (Auto) Abs Immat Gran (auto) Absolute Neuts (auto) Absolute Nucleated RBC Nucleated RBC % (auto) Anion Gap Estim Creat Clear Calc Estimated GFR POC Glucose 158 H Random Glucose Calcium Iron TIBC % Saturation Unsat Iron Binding Ferritin Total Bilirubin AST ALT Alkaline Phosphatase Total Protein Albumin Ur Random Urea 311 Hep Bs Antigen Negative Hep Bs Antibody NONREACTIVE Hep B Core Total Ab Nonreactive 03/18/22 03/19/22 03/19/22 20:02 07:10 11:13 MCV 95.5 MCH 30.2 MCHC 31.6 RDW 14.7 Plt Count 165 MPV 11.8 Immature Gran % (Auto) 1.1 H Neut % (Auto) 80.0 H Lymph % (Auto) 11.0 L [place] % (Auto) 7.6 Eos % (Auto) 0.0 Baso % (Auto) 0.3 Lymph # (Auto) 0.8 L [place] # (Auto) 0.5 Eos # (Auto) 0.0 Baso # (Auto) 0.0 Abs Immat Gran (auto) 0.08 H Absolute Neuts (auto) 5.6 Absolute Nucleated RBC 0.000 Nucleated RBC % (auto) 0.0 Anion Gap Estim Creat Clear Calc Estimated GFR POC Glucose 218 H 214 H Random Glucose Calcium Iron TIBC % Saturation Unsat Iron Binding Ferritin Total Bilirubin AST ALT Alkaline Phosphatase Total Protein Albumin Ur Random Urea Hep Bs Antigen Hep Bs Antibody Hep B Core Total Ab 03/19/22 03/19/22 11:13 11:15 MCV MCH MCHC RDW Plt Count MPV Immature Gran % (Auto) Neut % (Auto) Lymph % (Auto) [place] % (Auto) Eos % (Auto) Baso % (Auto) Lymph # (Auto) [place] # (Auto) Eos # (Auto) Baso # (Auto) Abs Immat Gran (auto) Absolute Neuts (auto) Absolute Nucleated RBC Nucleated RBC % (auto) Anion Gap 13 Estim Creat Clear Calc 27.6 Estimated GFR 20 POC Glucose 161 H Random Glucose 167 H Calcium 9.0 Iron 72 TIBC 226 L % Saturation 32 Unsat Iron Binding 154 Ferritin 156 Total Bilirubin 0.4 AST 13 ALT 15 Alkaline Phosphatase 61 Total Protein 5.8 L Albumin 3.3 L Ur Random Urea Hep Bs Antigen Hep Bs Antibody Hep B Core Total Ab Microbiology Microbiology Results: Microbiology 03/13/22 13:02 Blood Culture - Final Blood - Venous No growth after 5 days. 03/13/22 13:02 Blood Culture - Final Blood - Venous No growth after 5 days. Assessment and Plan (1) CKD (chronic kidney disease): Status: Acute (2) HFrEF (heart failure with reduced ejection fraction): Status: Acute Plan d#5 67yo M with HTN, HFrEF, NICM, DM2, DM foot infection s/p R BKA, hx CVA, BLANCO not on CPAP, and psoriasis. ? Recently on HD for 2 mo but taken off 3 wk ago presumably due to renal recovery.? Presenting with 2 days of dyspnea + edema, found to be in acute respiratory distress due to volume overload. 1.Acute hpyoxic respiratory failure due to acute/chronic HFrEF - continue Lasix drip at 15 milligrams/hour as per Renal -strict I&O -follow renals/divalents 2.LAUREEN/CKD4, -HD today -will continue Lasix drip 3. HTN -acceptable control on current therapies - continue Entresto, carvedilol, clonidine, hydralazine, Imdur 4.DM2 with hyperglycemia - basal/bolus insulin -adjust as indicated Full code Heparin Requires ongoing hospitalization for IV diuresis Time Spent With Patient Time: Total time managing care of this patient today ____ minutes. Quality Stroke Does the patient have a stroke diagnosis?: No VTE Prior VTE?: No VTE Risk Level:: Medical - moderate - high VTE Device Contraindication: N/A - Device Ordered VTE Drug Contraindication: N/A - Med Ordered
[2022-03-19] MEDS: ondansetron HCL 4 MG/2 ML VIAL IVPUSH (17:32)
[2022-03-19] MEDS: Sennosides/Docusate Sodium TABLET 1 TAB PO (20:05)
[2022-03-19 20:17] LABS: Glucose, Whole Blood 218 mg/dL (60-115)
[2022-03-20] VITALS (8 sets, daily range): BP systolic 107–131; BP diastolic 54–62; PULSE 71–87; RESP 16–20; TEMP 36.2–36.7; O2SAT 88–99
[2022-03-20] MEDS: Furosemide 200 MG in 0.9 % Sodium Chloride 80 ML 7.5 MG IVCONT ×2 (02:31→16:53)
[2022-03-20] MEDS: Heparin Sodium,Porcine 5,000 UNIT/ML VIAL 5000 UNIT SUBCUT (05:21)
[2022-03-20] MEDS: Omeprazole 20 MG CAPSULE.DR PO (05:24)
[2022-03-20 06:06] LABS: MANUAL DIFF FLAG NO
[2022-03-20 06:40] LABS: Alanine Aminotransferase 14 U/L (0-40); Albumin Level 3.2 g/dL (3.5-5.0); Alkaline Phosphatase 55 U/L (39-117); Anion Gap 13 (12-20); Aspartate Amino Transferase 10 U/L (5-37); Bilirubin Total 0.5 mg/dL (0.0-1.0); Blood Urea Nitrogen 40 mg/dL (9-16); Calcium 8.4 mg/dL (8.4-10.2); Carbon Dioxide 26 mmol/L (22-29); Chloride 100 mmol/L (96-108); Creatinine Clr Calc Pharmacy 26.6; Estimated Glomerular Filt Rate 20; Glucose Fasting 217 mg/dL (60-99); Potassium 4.6 mmol/L (3.3-5.1); Sodium 134 mmol/L (135-145); Total Protein 5.5 g/dL (6.5-8.0)
[2022-03-20 06:41] LABS: Basophils Percent Auto 0.3 % (0-2); Hematocrit 26.5 % (42.0-52.0); Hemoglobin 8.5 g/dl (14.0-18.0); Imm Gran Pct Auto 1.4 % (0.0-0.4); Mean Corpuscular HGB Conc 32.1 g/dl (31.0-36.0); Mean Corpuscular Hemoglobin 30.1 pg (27.0-33.0); Mean Platelet Volume 12.5 fL (9.4-12.4); Monocytes Absolute Auto 0.6 X10*3/uL (0.1-1.2); Monocytes Percent Auto 8.8 % (2-11); Neutrophils Absolute Auto 5.3 x10*3/uL (2.0-8.3); Neutrophils Percent Auto 75.5 % (45-73); Platelet Count 151 X10*3/uL (160-400); Red Blood Count 2.82 X10*6/uL (4.60-5.80); Red Cell Distribution Width 14.6 % (11.0-16.0); White Blood Count 7.1 X10*3/uL (4.8-10.8)
[2022-03-20 07:44] LABS: Glucose, Whole Blood 190 mg/dL (60-115)
[2022-03-20] MEDS: Insulin Lispro 100 UNIT/ML 3 ML VIAL SUBCUT ×4 (08:00→21:15)
[2022-03-20] MEDS: Sacubitril/Valsartan 49/51 1 TAB TABLET PO ×2 (08:21→21:15)
[2022-03-20] MEDS: cloNIDine HCL 0.1 MG TABLET PO ×3 (08:22→21:15)
[2022-03-20] MEDS: Atorvastatin Calcium 40 MG TABLET PO (08:22)
[2022-03-20] MEDS: Multivitamin TABLET 1 TAB PO (08:22)
[2022-03-20] MEDS: SITagliptin Phosphate 25 MG TABLET PO (08:22)
[2022-03-20] MEDS: Ferrous Sulfate 324 MG TABLET.DR PO ×3 (08:22→21:15)
[2022-03-20] MEDS: hydrALAZINE HCl 50 MG TABLET PO ×3 (08:22→21:15)
[2022-03-20] MEDS: Cholecalciferol (Vitamin D3) 25 MCG TABLET PO (08:22)
[2022-03-20] MEDS: Aspirin Enteric Coated 81 MG TABLET.DR PO (08:22)
[2022-03-20] MEDS: DULoxetine HCl 30 MG CAPSULE.DR PO (08:22)
[2022-03-20] MEDS: Isosorbide Mononitrate 30 MG TAB.ER.24H PO (08:22)
[2022-03-20] MEDS: carvediloL 12.5 MG TABLET PO ×2 (08:22→21:15)
[2022-03-20] MEDS: Fluticasone Propionate Nasal 16 GM SPRAY 1 SPRAY NOSTRIL-B (08:23)
[2022-03-20] MEDS: Insulin Glargine,Hum.rec.anlog 100 UNIT/ML 10 ML VIAL 50 UNIT SUBCUT (08:23)
[2022-03-20] MEDS: Nystatin/Triamcinolone Cream 15 GM TUBE 1 APPL TOPICAL ×2 (08:23→22:07)
[2022-03-20] MEDS: predniSONE 5 MG TABLET 12.5 MG PO (08:23)
[2022-03-20] MEDS: Loratadine 10 MG TABLET PO (08:23)
[2022-03-20] MEDS: oxyCODONE HCl Immed Release 5 MG TABLET 10 MG PO ×3 (08:31→22:06)
[2022-03-20] MEDS: Albuterol/Iprat 2.5/0.5MG 3 ML AMPUL.NEB INHALE ×2 (08:36→14:58)
[2022-03-20] MEDS: Dapsone 25 MG TABLET 100 MG PO (09:59)
--- NOTE | 2022-03-20 10:34 | P.PNIM_ITS ---
Subjective Subjective Date of Service: 03/20/22 Interval History: Breathing still not back to baseline per patient. HD not helpful thus far Review of Systems Denies chest pain Admits shortness of breath Denies nausea vomiting diarrhea Denies fever chills Physical Exam Vital Signs: Vital Signs: Last Vital Signs Temp 98.0 F 03/20/22 07:58 Pulse 87 03/20/22 08:38 Resp 18 03/20/22 08:38 BP 117/57 L 03/20/22 07:58 Pulse Ox 92 03/20/22 07:58 O2 Del Method 03/20/22 07:58 O2 Flow Rate 2 03/20/22 00:00 BMI result Body Mass Index 41.5 Const: Other: Somnolent but arousable Resp: Other: Clear to auscultation bilaterally no rales rhonchi wheezes Cardio: Other: No S4; positive S1-S2; no S3 murmurs rubs or gallops GI: Other: Soft nontender nondistended normoactive bowel sounds Extrem: Other: Edema bilateral Objective Data Active Medications Acetaminophen (Acetaminophen 325 Mg Tablet) 650 mg PO Q6H PRN PRN Reason: Pain, Mild (Pain Scale 1-3) Albuterol Sulfate (Albuterol Sulfate 90 Mcg 8 Gm Inhaler) 2 puff INHALE Q4H PRN PRN Reason: Wheezing Albuterol/Ipratropium (Albuterol/Iprat 2.5/0.5mg 3 Ml Ampul.Neb) 3 ml INHALE RQID [facility] Last Admin: 03/20/22 08:36 Dose: 3 ml Documented By: SHANE Aspirin (Aspirin Enteric Coated 81 Mg Tablet.) 81 mg PO DAILY [facility] Last Admin: 03/20/22 08:22 Dose: 81 mg Documented By: TAMAR Atorvastatin Calcium (Atorvastatin Calcium 40 Mg Tablet) 40 mg PO DAILY [facility] Last Admin: 03/20/22 08:22 Dose: 40 mg Documented By: TAMAR Carvedilol (Carvedilol 12.5 Mg Tablet) 12.5 mg PO BID [facility]; Protocol Last Admin: 03/20/22 08:22 Dose: 12.5 mg Documented By: TAMAR Clonidine HCl (Clonidine Hcl 0.1 Mg Tablet) 0.1 mg PO TID [facility]; Protocol Last Admin: 03/20/22 08:22 Dose: 0.1 mg Documented By: TAMAR Dapsone (Dapsone 25 Mg Tablet) 100 mg PO DAILY [facility] Last Admin: 03/20/22 09:59 Dose: 100 mg Documented By: TAMAR Dextrose (Dextrose 50 % 25 Gm/50 Ml Syringe) 25 gm IVPUSH Q15M PRN; Protocol PRN Reason: per Hypoglycemia Standing Ord. Duloxetine HCl (Duloxetine Hcl 30 Mg Capsule.) 30 mg PO DAILY [facility] Last Admin: 03/20/22 08:22 Dose: 30 mg Documented By: TAMAR Ferrous Sulfate (Ferrous Sulfate 324 Mg Tablet.) 324 mg PO TIDWM [facility] Last Admin: 03/20/22 08:22 Dose: 324 mg Documented By: TAMAR Fluticasone Propionate (Fluticasone Propionate Nasal 16 Gm [place]) 1 spray NOSTRIL-B DAILY [facility] Last Admin: 03/20/22 08:23 Dose: 1 spray Documented By: TAMAR Glucose (Glucose Gel 15 Gm Gel..Gram.) 15 gm PO Q15M PRN; Protocol PRN Reason: per Hypoglycemia Standing Ord. Heparin Sodium (Porcine) (Heparin Sodium,Porcine 5,000 Unit/Ml Vial) 5,000 unit SUBCUT Q12H [facility] Last Admin: 03/20/22 05:21 Dose: 5,000 unit Documented By: PILY Hydralazine HCl (Hydralazine Hcl 50 Mg Tablet) 50 mg PO TID [facility]; Protocol Last Admin: 03/20/22 08:22 Dose: 50 mg Documented By: TAMAR Furosemide 200 mg/ Sodium (Chloride) 100 mls @ 7.5 mls/hr IVCONT .[id number] [facility] Last Admin: 03/20/22 02:31 Dose: 15 mg/hr, 7.5 mls/hr Documented By: PILY Insulin Glargine (Insulin Glargine,Hum.Rec.Anlog 100 Unit/Ml 10 Ml Vial) 50 unit SUBCUT DAILY [facility] Last Admin: 03/20/22 08:23 Dose: 50 unit Documented By: TAMAR Insulin Human Lispro (Insulin Lispro 100 Unit/Ml 3 Ml Vial) 0 unit SUBCUT QIDACHS [facility]; Protocol Last Admin: 03/20/22 08:00 Dose: 4 unit Documented By: TAMAR Isosorbide Mononitrate (Isosorbide Mononitrate 30 Mg Tab.Er.24h) 30 mg PO DAILY [facility]; Protocol Last Admin: 03/20/22 08:22 Dose: 30 mg Documented By: TAMAR Loratadine (Loratadine 10 Mg Tablet) 10 mg PO DAILY [facility] Last Admin: 03/20/22 08:23 Dose: 10 mg Documented By: TAMAR Multivitamins/Vitamin C (Multivitamin Tablet) 1 tab PO DAILY [facility] Last Admin: 03/20/22 08:22 Dose: 1 tab Documented By: TAMAR Non-Formulary Medication (Buprenorphine) 1 patch TOPICAL QWEEK [facility] Nystatin/Triamcinolone Acetonide (Nystatin/Triamcinolone Cream 15 Gm Tube) 1 appl TOPICAL BID [facility] Last Admin: 03/20/22 08:23 Dose: 1 appl Documented By: TAMAR Omeprazole (Omeprazole 20 Mg Capsule.Dr) 20 mg PO DAILY@0630 [facility] Last Admin: 03/20/22 05:24 Dose: 20 mg Documented By: PILY Ondansetron HCl (Ondansetron Hcl 4 Mg/2 Ml Vial) 4 mg IVPUSH Q8H PRN PRN Reason: Nausea and Vomiting Last Admin: 03/19/22 17:32 Dose: 4 mg Documented By: VIRGILIO Oxycodone HCl (Oxycodone Hcl Immed Release 5 Mg Tablet) 10 mg PO Q6H PRN PRN Reason: severe pain Last Admin: 03/20/22 08:31 Dose: 10 mg Documented By: TAMAR Pharmacy Consult (Consult Rx Perform Med Rec) 1 each MISCELLANE ONCE PRN PRN Reason: probable admission Prednisone (Prednisone 5 Mg Tablet) 12.5 mg PO DAILY [facility] Last Admin: 03/20/22 08:23 Dose: 12.5 mg Documented By: TAMAR Sacubitril/Valsartan (Sacubitril/Valsartan 49/51 1 Tab Tablet) 1 tab PO BID [facility]; Protocol Last Admin: 03/20/22 08:21 Dose: 1 tab Documented By: TAMAR Senna/Docusate Sodium (Sennosides/Docusate Sodium Tablet) 1 tab PO BEDTIME [facility] Last Admin: 03/19/22 20:05 Dose: 1 tab Documented By: PILY Sitagliptin Phosphate (Sitagliptin Phosphate 25 Mg Tablet) 25 mg PO DAILY [facility] Last Admin: 03/20/22 08:22 Dose: 25 mg Documented By: TAMAR Sodium Chloride (0.9 % Sodium Chloride Flush 3 Ml Syringe) 3 ml IVFLUSH QSHIFT [facility] Last Admin: 03/20/22 08:20 Dose: Not Given Documented By: TAMAR Non-Admin Reason: IV Running Tamsulosin HCl (Tamsulosin Hcl 0.4 Mg Capsule) 0.4 mg PO DAILY@1730 [facility] Last Admin: 03/19/22 17:41 Dose: Not Given Documented By: VIRGILIO Non-Admin Reason: Off unit: Dialysis Vitamin D (Cholecalciferol (Vitamin D3) 25 Mcg Tablet) 25 mcg PO DAILY [facility] Last Admin: 03/20/22 08:22 Dose: 25 mcg Documented By: TAMAR Labs CBC & Chem 7: 03/20/22 05:18 03/20/22 05:18 Labs: Laboratory Results - last 24 hr 03/18/22 03/19/22 03/19/22 05:31 11:13 11:13 MCV 95.5 MCH 30.2 MCHC 31.6 RDW 14.7 Plt Count 165 MPV 11.8 Immature Gran % (Auto) 1.1 H Neut % (Auto) 80.0 H Lymph % (Auto) 11.0 L [place] % (Auto) 7.6 Eos % (Auto) 0.0 Baso % (Auto) 0.3 Lymph # (Auto) 0.8 L [place] # (Auto) 0.5 Eos # (Auto) 0.0 Baso # (Auto) 0.0 Abs Immat Gran (auto) 0.08 H Absolute Neuts (auto) 5.6 Absolute Nucleated RBC 0.000 Nucleated RBC % (auto) 0.0 Anion Gap 13 Estim Creat Clear Calc 27.6 Estimated GFR 20 POC Glucose Random Glucose 167 H Fasting Glucose Calcium 9.0 Iron 72 TIBC 226 L % Saturation 32 Unsat Iron Binding 154 Ferritin 156 Total Bilirubin 0.4 AST 13 ALT 15 Alkaline Phosphatase 61 Total Protein 5.8 L Albumin 3.3 L Hep Bs Antigen Negative Hep Bs Antibody NONREACTIVE Hep B Core Total Ab Nonreactive 03/19/22 03/19/22 03/20/22 11:15 19:33 05:18 MCV 94.0 MCH 30.1 MCHC 32.1 RDW 14.6 Plt Count 151 L MPV 12.5 H Immature Gran % (Auto) 1.4 H Neut % (Auto) 75.5 H Lymph % (Auto) 14.0 L [place] % (Auto) 8.8 Eos % (Auto) 0.0 Baso % (Auto) 0.3 Lymph # (Auto) 1.0 L [place] # (Auto) 0.6 Eos # (Auto) 0.0 Baso # (Auto) 0.0 Abs Immat Gran (auto) 0.10 H Absolute Neuts (auto) 5.3 Absolute Nucleated RBC 0.000 Nucleated RBC % (auto) 0.0 Anion Gap Estim Creat Clear Calc Estimated GFR POC Glucose 161 H 218 H Random Glucose Fasting Glucose Calcium Iron TIBC % Saturation Unsat Iron Binding Ferritin Total Bilirubin AST ALT Alkaline Phosphatase Total Protein Albumin Hep Bs Antigen Hep Bs Antibody Hep B Core Total Ab 03/20/22 03/20/22 05:18 07:35 MCV MCH MCHC RDW Plt Count MPV Immature Gran % (Auto) Neut % (Auto) Lymph % (Auto) [place] % (Auto) Eos % (Auto) Baso % (Auto) Lymph # (Auto) [place] # (Auto) Eos # (Auto) Baso # (Auto) Abs Immat Gran (auto) Absolute Neuts (auto) Absolute Nucleated RBC Nucleated RBC % (auto) Anion Gap 13 Estim Creat Clear Calc 26.6 Estimated GFR 20 POC Glucose 190 H Random Glucose Fasting Glucose 217 H Calcium 8.4 D Iron TIBC % Saturation Unsat Iron Binding Ferritin Total Bilirubin 0.5 AST 10 ALT 14 Alkaline Phosphatase 55 Total Protein 5.5 L Albumin 3.2 L Hep Bs Antigen Hep Bs Antibody Hep B Core Total Ab Assessment and Plan (1) Acute on chronic heart failure: Status: Acute (2) CKD (chronic kidney disease): Status: Acute Plan d#5 67yo M with HTN, HFrEF, NICM, DM2, DM foot infection s/p R BKA, hx CVA, BLANCO not on CPAP, and psoriasis. ? Recently on HD for 2 mo but taken off 3 wk ago presumably due to renal recovery.? Presenting with 2 days of dyspnea + edema, found to be in acute respiratory distress due to volume overload. 1.Acute hpyoxic respiratory failure due to acute/chronic HFrEF - continue Lasix drip at 15 milligrams/hour as per Renal... Daily HD -strict I&O -follow renals/divalents 2.LAUREEN/CKD4, -HD today -will continue Lasix drip 3. HTN -acceptable control on current therapies - continue Entresto, carvedilol, clonidine, hydralazine, Imdur 4.DM2 with hyperglycemia - basal/bolus insulin -adjust as indicated Full code Heparin Requires ongoing hospitalization for IV diuresis Time Spent With Patient Time: Total time managing care of this patient today ____ minutes. Quality Stroke Does the patient have a stroke diagnosis?: No VTE Prior VTE?: No VTE Risk Level:: Medical - moderate - high VTE Device Contraindication: N/A - Device Ordered VTE Drug Contraindication: N/A - Med Ordered
--- NOTE | 2022-03-20 10:57 | P.PNCA_ITS ---
Subjective Subjective Date of Service: 03/20/22 Principal diagnosis: CHF, renal failure Interval history: Patient feeling better today. Less short of breath. Less emotional. Also says is abdominal distention leg edema or better. He was dialyzed yesterday aftern oon after I saw him. He is not responding much to IV Lasix drip. Review of Systems Constitutional: Reports no additional constitutional complaints Cardiovascular: Denies chest pain, Reports leg edema, Denies palpitations and Reports dyspnea Respiratory: Reports no additional respiratory complaints and Reports dyspnea Endocrine: Denies palpitations Physical Exam Vital Signs: Last Vital Signs Temp 98.0 F 03/20/22 07:58 Pulse 87 03/20/22 08:38 Resp 18 03/20/22 08:38 BP 117/57 L 03/20/22 07:58 Pulse Ox 92 03/20/22 07:58 O2 Del Method 03/20/22 07:58 O2 Flow Rate 2 03/20/22 00:00 BMI result Body Mass Index 41.5 Const General: cooperative, comfortable and in distress mild and respiratory Nutritional Appearance: obese Orientation/consciousness: patient oriented x3 Neck Neck: Yes trachea midline and Yes supple Resp Effort & Inspection: normal respiratory effort Auscultation: wheezes and breath sounds absent bilateral (bases) Cardio Palpation: normal PMI Rate: regular rate Rhythm: regular rhythm Heart sounds: S1 normal heart sound present, S2 normal heart sound present, no click, no gallops, no murmurs and no rubs GI Inspection: Yes Abdominal wall edema and Yes distended Auscultation: normal bowel sounds Neuro General: patient oriented x3 and no focal motor deficits Extrem General: Yes edema (Improving) Objective Labs and Meds Result diagrams: 03/20/22 05:18 03/20/22 05:18 Lab results: Laboratory Results - last 24 hr 03/18/22 03/19/22 03/19/22 05:31 11:13 11:13 WBC 7.0 RBC 3.08 L Hgb 9.3 L Hct 29.4 L MCV 95.5 MCH 30.2 MCHC 31.6 RDW 14.7 Plt Count 165 MPV 11.8 Immature Gran % (Auto) 1.1 H Neut % (Auto) 80.0 H Lymph % (Auto) 11.0 L [place] % (Auto) 7.6 Eos % (Auto) 0.0 Baso % (Auto) 0.3 Lymph # (Auto) 0.8 L [place] # (Auto) 0.5 Eos # (Auto) 0.0 Baso # (Auto) 0.0 Abs Immat Gran (auto) 0.08 H Absolute Neuts (auto) 5.6 Absolute Nucleated RBC 0.000 Nucleated RBC % (auto) 0.0 Sodium 137 Potassium 4.3 Chloride 101 Carbon Dioxide 27 Anion Gap 13 BUN 56 H Creatinine 3.10 H Estim Creat Clear Calc 27.6 Estimated GFR 20 POC Glucose Random Glucose 167 H Fasting Glucose Calcium 9.0 Iron 72 TIBC 226 L % Saturation 32 Unsat Iron Binding 154 Ferritin 156 Total Bilirubin 0.4 AST 13 ALT 15 Alkaline Phosphatase 61 Total Protein 5.8 L Albumin 3.3 L Hep Bs Antigen Negative Hep Bs Antibody NONREACTIVE Hep B Core Total Ab Nonreactive 03/19/22 03/19/22 03/20/22 11:15 19:33 05:18 WBC 7.1 RBC 2.82 L Hgb 8.5 L Hct 26.5 L MCV 94.0 MCH 30.1 MCHC 32.1 RDW 14.6 Plt Count 151 L MPV 12.5 H Immature Gran % (Auto) 1.4 H Neut % (Auto) 75.5 H Lymph % (Auto) 14.0 L [place] % (Auto) 8.8 Eos % (Auto) 0.0 Baso % (Auto) 0.3 Lymph # (Auto) 1.0 L [place] # (Auto) 0.6 Eos # (Auto) 0.0 Baso # (Auto) 0.0 Abs Immat Gran (auto) 0.10 H Absolute Neuts (auto) 5.3 Absolute Nucleated RBC 0.000 Nucleated RBC % (auto) 0.0 Sodium Potassium Chloride Carbon Dioxide Anion Gap BUN Creatinine Estim Creat Clear Calc Estimated GFR POC Glucose 161 H 218 H Random Glucose Fasting Glucose Calcium Iron TIBC % Saturation Unsat Iron Binding Ferritin Total Bilirubin AST ALT Alkaline Phosphatase Total Protein Albumin Hep Bs Antigen Hep Bs Antibody Hep B Core Total Ab 03/20/22 03/20/22 05:18 07:35 WBC RBC Hgb Hct MCV MCH MCHC RDW Plt Count MPV Immature Gran % (Auto) Neut % (Auto) Lymph % (Auto) [place] % (Auto) Eos % (Auto) Baso % (Auto) Lymph # (Auto) [place] # (Auto) Eos # (Auto) Baso # (Auto) Abs Immat Gran (auto) Absolute Neuts (auto) Absolute Nucleated RBC Nucleated RBC % (auto) Sodium 134 L Potassium 4.6 Chloride 100 Carbon Dioxide 26 Anion Gap 13 BUN 40 H Creatinine 3.21 H Estim Creat Clear Calc 26.6 Estimated GFR 20 POC Glucose 190 H Random Glucose Fasting Glucose 217 H Calcium 8.4 D Iron TIBC % Saturation Unsat Iron Binding Ferritin Total Bilirubin 0.5 AST 10 ALT 14 Alkaline Phosphatase 55 Total Protein 5.5 L Albumin 3.2 L Hep Bs Antigen Hep Bs Antibody Hep B Core Total Ab Imaging Radiologist's impression: Impressions Chest X-Ray 03/19/22 13:23 IMPRESSION: Stable enlargement of the cardiac silhouette. No evidence for acute disease in the chest. Progress Note: A&P Assessment and plan (1) Acute on chronic heart failure: Status: Acute Assessment and Plan: Acute on chronic heart failure secondary to severe LVH and diastolic dysfunction with prior history of heart failure with reduced ejection fraction in this elderly man with multiple comorbidities with renal failure on hemodialysis. Not responding to IV Lasix drip. This can be discontinued. Continue other heart failure medication, discussed with Nephrology to continue Entresto at this point in time for neurohormonal modulation. Continue dialysis for volume management. I do not think he will respond much to diuretics at this point in time. Discussed with him about learning about his health conditions. From cardiac perspective there is not much additional input from us. Will sign of the case. Thank you for allowing us to partake in his care Time Spent With Patient Time: Total time managing care of this patient today ____ minutes. Progress Note: Quality Stroke Does the patient have a stroke diagnosis?: No Procedures Date of Service Date of Service: 03/20/22
[2022-03-20 11:29] LABS: Glucose, Whole Blood 242 mg/dL (60-115)
--- NOTE | 2022-03-20 12:52 | P.PNNPD_ITS ---
Subjective Subjective Principal diagnosis: CHF, renal failure This patient was seen during dialysis. Interval history: fluid removal with dialysis daily 1 plus edema improved Physical Exam Vital Signs: Vital Signs: Last Vital Signs Temp 97.3 F 03/20/22 11:39 Pulse 78 03/20/22 11:39 Resp 19 03/20/22 11:39 BP 107/54 L 03/20/22 11:39 Pulse Ox 95 03/20/22 11:39 O2 Del Method 03/20/22 11:39 O2 Flow Rate 2 03/20/22 00:00 BMI result Body Mass Index 41.5 Const: Other: Somnolent but arousable General: cooperative, comfortable, no acute distress, alert, awake and in distress mild and respiratory Nutritional Appearance: well nourished and obese Orientation/consciousness: patient oriented x3 Limitations: no limitations HEENT: Head: Yes normal to inspection and Yes atraumatic Ears: hearing grossly normal bilaterally and external ears normal General nose exam: Normal external nose present, no nasal discharge noted and no epistaxis Face and sinus: Yes normal facial exam, No abrasion and No laceration Mouth: Normal oral and palatal mucosa present, no drooling and no muffled voice Eyes: General: appearance normal, both eyes and all related structures Periorbital: periorbital findings normal Eyelids: Yes eyelids normal Conjunctivae: conjunctivae normal Pupils: Equal, round and reactive pupils present EOM: EOMs intact bilaterally Neck: Neck: Yes normal visual inspection, Yes full ROM, Yes no lymphadenopathy, Yes trachea midline and Yes supple Chest: Chest palpation & inspection: normal inspection of the chest Resp: Other: Clear to auscultation bilaterally no rales rhonchi wheezes Effort & Inspection: normal respiratory effort, able to speak in complete sentences and labored Auscultation: rhonchi throughout, wheezes and breath sounds absent bilateral (bases) Cardio: Other: No S4; positive S1-S2; no S3 murmurs rubs or gallops Palpation: normal PMI Rate: regular rate Rhythm: regular rhythm Heart sounds: S1 normal heart sound present, S2 normal heart sound present, no click, no gallops, no murmurs and no rubs GI: Other: Soft nontender nondistended normoactive bowel sounds Inspection: Yes normal to inspection, Yes Abdominal wall edema and Yes distended Palpation (GI): Soft to palpation, not firm, nontender, no guarding and not rigid Auscultation: normal bowel sounds Neuro: General: patient oriented x3, moves all extremities and no focal motor deficits Cranial nerves: Yes Equal, round and reactive pupils present Cognition (Neuro): normal cognition Motor exam (neuro): 5/5 motor strength present throughout Sensory Exam: Normal double simultaneous stimulation for sensation Coordination: [id number] test normal Extrem: Other: Edema bilateral General: Yes edema (Improving) Psych: Appearance: grossly normal Mental Status: mental status grossly normal Affect: normal affect Attitude: cooperative Thought process: Normal thought process present Thought content: Normal thought content present Insight: Good insight present (Psych) Assessment & Plan Assessment and plan (1) Acute on chronic heart failure: Status: Acute Assessment and Plan: agree with Dr Cleveland Acute on chronic heart failure secondary to severe LVH and diastolic dysfunction with prior history of heart failure with reduced ejection fraction in this elderly man with multiple comorbidities with renal failure on hemodialysis. Not responding to IV Lasix drip. This can be discontinued. Continue other heart failure medication, discussed with Nephrology to continue Entresto at this point in time for neurohormonal modulation. Continue dialysis for volume management. I do not think he will respond much to diuretics at this point in time. (2) Acute kidney injury: Status: Acute Assessment and Plan: felt to be CRS as cause of LAUREEN refractory to diuretics so dialysis for volume control daily dialysis except thursday he has an OP spot MWF 1st shift at [facility] (3) CKD (chronic kidney disease): Status: Acute Assessment and Plan: Advanced chronic kidney disease approaching ESRD in the setting of diabetic nephropathy and cardiorenal syndrome. After initial dialysis and ultrafiltration there has been a meaningful recovery of renal function and therefore he was taken off dialysis 2 weeks ago but readmitted with vol overload his creat was 2.2-3.1 past 6 months Time Spent With Patient Time: Total time managing care of this patient today ____ minutes. Procedures Date of Service Date of Service: 03/20/22
[2022-03-20 14:13] LABS: Osmolality Urine 297 mosm/kg (373-1093)
[2022-03-20 15:53] LABS: Glucose, Whole Blood 246 mg/dL (60-115)
[2022-03-20] MEDS: 0.9 % Sodium Chloride Flush 3 ML SYRINGE IVFLUSH (16:07)
[2022-03-20] MEDS: ondansetron HCL 4 MG/2 ML VIAL IVPUSH (19:47)
[2022-03-20 20:13] LABS: Glucose, Whole Blood 198 mg/dL (60-115)
[2022-03-20] MEDS: Tamsulosin HCL 0.4 MG CAPSULE PO (21:14)
[2022-03-20] MEDS: Sennosides/Docusate Sodium TABLET 1 TAB PO (21:15)
--- NOTE | 2022-03-20 22:20 | PM.EVENT ---
Event Note Date of Service: 03/20/22 Event Note: Pt lost IV access. nursing staff unable to place peripheral IV access. will order Midline placement. Time Spent With Patient Time: Total time managing care of this patient today ____ minutes.
[2022-03-21] VITALS (10 sets, daily range): BP systolic 82–139; BP diastolic 50–66; PULSE 75–82; RESP 16–20; TEMP 35.9–36.4; O2SAT 92–97
[2022-03-21 02:08] LABS: Microalbumin Urine > 2000.0 mg/L
[2022-03-21] MEDS: oxyCODONE HCl Immed Release 5 MG TABLET 10 MG PO (03:24)
[2022-03-21] MEDS: Heparin Sodium,Porcine 5,000 UNIT/ML VIAL 5000 UNIT SUBCUT ×2 (05:14→17:35)
[2022-03-21] MEDS: Omeprazole 20 MG CAPSULE.DR PO (05:14)
[2022-03-21 06:10] LABS: MANUAL DIFF FLAG NO
[2022-03-21 06:36] LABS: Basophils Percent Auto 0.3 % (0-2); Hematocrit 29.6 % (42.0-52.0); Hemoglobin 9.6 g/dl (14.0-18.0); Imm Gran Abs Auto 0.13 X10*3/uL (0.00-0.03); Imm Gran Pct Auto 1.5 % (0.0-0.4); Lymphocytes Absolute Auto 1.2 X10*3/uL (1.2-4.9); Lymphocytes Percent Auto 13.6 % (20-40); Mean Corpuscular HGB Conc 32.4 g/dl (31.0-36.0); Mean Corpuscular Hemoglobin 30.4 pg (27.0-33.0); Mean Corpuscular Volume 93.7 fL (80.0-98.0); Mean Platelet Volume 12.3 fL (9.4-12.4); Monocytes Absolute Auto 0.7 X10*3/uL (0.1-1.2); Monocytes Percent Auto 8.3 % (2-11); Neutrophils Absolute Auto 6.6 x10*3/uL (2.0-8.3); Neutrophils Percent Auto 76.3 % (45-73); Platelet Count 198 X10*3/uL (160-400); Red Blood Count 3.16 X10*6/uL (4.60-5.80); Red Cell Distribution Width 14.6 % (11.0-16.0); White Blood Count 8.7 X10*3/uL (4.8-10.8)
[2022-03-21 06:37] LABS: Alanine Aminotransferase 15 U/L (0-40); Albumin Level 3.7 g/dL (3.5-5.0); Alkaline Phosphatase 63 U/L (39-117); Anion Gap 15 (12-20); Aspartate Amino Transferase 14 U/L (5-37); Bilirubin Total 0.4 mg/dL (0.0-1.0); Blood Urea Nitrogen 35 mg/dL (9-16); Calcium 9.1 mg/dL (8.4-10.2); Carbon Dioxide 22 mmol/L (22-29); Chloride 99 mmol/L (96-108); Creatinine Clr Calc Pharmacy 21.5; Estimated Glomerular Filt Rate 15; Glucose Fasting 117 mg/dL (60-99); Potassium 4.3 mmol/L (3.3-5.1); Sodium 132 mmol/L (135-145); Total Protein 6.6 g/dL (6.5-8.0)
[2022-03-21] MEDS: polyethylene glycoL 3350 17 GM POWD.PACK PO (07:52)
[2022-03-21] MEDS: Docusate Sodium 100 MG CAPSULE PO (07:52)
[2022-03-21 08:06] LABS: Glucose, Whole Blood 149 mg/dL (60-115)
[2022-03-21] MEDS: Insulin Lispro 100 UNIT/ML 3 ML VIAL SUBCUT ×4 (09:03→20:55)
[2022-03-21] MEDS: Sacubitril/Valsartan 49/51 1 TAB TABLET PO ×2 (09:04→20:55)
[2022-03-21] MEDS: Isosorbide Mononitrate 30 MG TAB.ER.24H PO (09:04)
[2022-03-21] MEDS: Dapsone 25 MG TABLET 100 MG PO (09:04)
[2022-03-21] MEDS: Insulin Glargine,Hum.rec.anlog 100 UNIT/ML 10 ML VIAL 50 UNIT SUBCUT (09:04)
[2022-03-21] MEDS: Ferrous Sulfate 324 MG TABLET.DR PO ×3 (09:04→17:35)
[2022-03-21] MEDS: Multivitamin TABLET 1 TAB PO (09:04)
[2022-03-21] MEDS: Atorvastatin Calcium 40 MG TABLET PO (09:04)
[2022-03-21] MEDS: SITagliptin Phosphate 25 MG TABLET PO (09:05)
[2022-03-21] MEDS: carvediloL 12.5 MG TABLET PO (09:05)
[2022-03-21] MEDS: Cholecalciferol (Vitamin D3) 25 MCG TABLET PO (09:05)
[2022-03-21] MEDS: predniSONE 5 MG TABLET 12.5 MG PO (09:05)
[2022-03-21] MEDS: cloNIDine HCL 0.1 MG TABLET PO (09:05)
[2022-03-21] MEDS: hydrALAZINE HCl 50 MG TABLET PO (09:05)
[2022-03-21] MEDS: Loratadine 10 MG TABLET PO (09:05)
[2022-03-21] MEDS: Aspirin Enteric Coated 81 MG TABLET.DR PO (09:05)
[2022-03-21] MEDS: DULoxetine HCl 30 MG CAPSULE.DR PO (09:05)
[2022-03-21] MEDS: Nystatin/Triamcinolone Cream 15 GM TUBE 1 APPL TOPICAL ×2 (09:12→21:05)
[2022-03-21 11:28] LABS: Glucose, Whole Blood 186 mg/dL (60-115)
--- NOTE | 2022-03-21 12:54 | PM.PNNEP ---
Subjective Subjective Date of Service: 03/21/22 Principal diagnosis: CHF, renal failure Interval history: seen and examined c/o SOB had HD yesterday Physical Exam Vital Signs: Vital Signs: Last Vital Signs Temp 97.5 F 03/21/22 11:51 Pulse 75 03/21/22 11:51 Resp 20 03/21/22 11:51 BP 99/51 L 03/21/22 11:51 Pulse Ox 96 03/21/22 11:51 O2 Del Method 03/21/22 11:51 O2 Flow Rate 2 03/21/22 11:51 BMI result Body Mass Index 41.5 Const: General: comfortable and no acute distress HEENT: Head: Yes normocephalic and Yes atraumatic Neck: Neck: Yes supple Resp: Auscultation: diminished lung sounds Cardio: Heart sounds: S1 normal heart sound present and S2 normal heart sound present GI: Palpation (GI): Soft to palpation and nontender Extrem: General: Yes edema Objective Data Labs CBC & Chem 7: 03/21/22 05:27 03/21/22 05:27 Labs: Laboratory Results - last 24 hr 03/20/22 03/20/22 03/20/22 09:57 09:57 09:57 WBC RBC Hgb Hct MCV MCH MCHC RDW Plt Count MPV Immature Gran % (Auto) Neut % (Auto) Lymph % (Auto) [place] % (Auto) Eos % (Auto) Baso % (Auto) Lymph # (Auto) [place] # (Auto) Eos # (Auto) Baso # (Auto) Abs Immat Gran (auto) Absolute Neuts (auto) Absolute Nucleated RBC Nucleated RBC % (auto) Sodium Potassium Chloride Carbon Dioxide Anion Gap BUN Creatinine Estim Creat Clear Calc Estimated GFR POC Glucose Fasting Glucose Calcium Total Bilirubin AST ALT Alkaline Phosphatase Total Protein Albumin Urine Osmolality 297 L Ur Random Sodium 27.0 Urine Creatinine 221.50 Urine Microalbumin > 2000.0 Microalb/Creat Ratio 902.9 03/20/22 03/20/22 03/21/22 15:46 20:00 05:27 WBC 8.7 RBC 3.16 L Hgb 9.6 L Hct 29.6 L MCV 93.7 MCH 30.4 MCHC 32.4 RDW 14.6 Plt Count 198 D MPV 12.3 Immature Gran % (Auto) 1.5 H Neut % (Auto) 76.3 H Lymph % (Auto) 13.6 L [place] % (Auto) 8.3 Eos % (Auto) 0.0 Baso % (Auto) 0.3 Lymph # (Auto) 1.2 [place] # (Auto) 0.7 Eos # (Auto) 0.0 Baso # (Auto) 0.0 Abs Immat Gran (auto) 0.13 H Absolute Neuts (auto) 6.6 Absolute Nucleated RBC 0.000 Nucleated RBC % (auto) 0.0 Sodium Potassium Chloride Carbon Dioxide Anion Gap BUN Creatinine Estim Creat Clear Calc Estimated GFR POC Glucose 246 H 198 H Fasting Glucose Calcium Total Bilirubin AST ALT Alkaline Phosphatase Total Protein Albumin Urine Osmolality Ur Random Sodium Urine Creatinine Urine Microalbumin Microalb/Creat Ratio 03/21/22 03/21/22 03/21/22 05:27 07:55 11:23 WBC RBC Hgb Hct MCV MCH MCHC RDW Plt Count MPV Immature Gran % (Auto) Neut % (Auto) Lymph % (Auto) [place] % (Auto) Eos % (Auto) Baso % (Auto) Lymph # (Auto) [place] # (Auto) Eos # (Auto) Baso # (Auto) Abs Immat Gran (auto) Absolute Neuts (auto) Absolute Nucleated RBC Nucleated RBC % (auto) Sodium 132 L Potassium 4.3 Chloride 99 Carbon Dioxide 22 Anion Gap 15 BUN 35 H Creatinine 3.97 H Estim Creat Clear Calc 21.5 Estimated GFR 15 POC Glucose 149 H 186 H Fasting Glucose 117 H Calcium 9.1 D Total Bilirubin 0.4 AST 14 ALT 15 Alkaline Phosphatase 63 Total Protein 6.6 Albumin 3.7 Urine Osmolality Ur Random Sodium Urine Creatinine Urine Microalbumin Microalb/Creat Ratio Microbiology Microbiology Results: Microbiology 03/13/22 13:02 Blood - Venous Blood Culture - Final No growth after 5 days. 03/13/22 13:02 Blood - Venous Blood Culture - Final No growth after 5 days. Procedures Date of Service Date of Service: 03/21/22 Assessment & Plan Assessment and plan (1) Acute kidney injury: Status: Acute (2) HFrEF (heart failure with reduced ejection fraction): Status: Acute (3) Anemia: Status: Acute (4) CKD (chronic kidney disease) stage 4, GFR 15-29 ml/min: Status: Acute Plan LAUREEN super imposed on advanced CKD due to DM/HTN probably now ESRD h/o HFrEF and diastolic dysfunction outpatient HD arranged at [place] [facility] unit first shift REC HD today UF as tolerated renal diet phosphate binders Time Spent With Patient Time: Total time managing care of this patient today ____ minutes. Progress Note: Quality Stroke Does the patient have a stroke diagnosis?: No
--- NOTE | 2022-03-21 13:58 | HO.PM.IMPN ---
Subjective Subjective Date of Service: 03/21/22 Interval History: Still feels bloated Review of Systems Denies chest pain Admits shortness of breath Denies nausea vomiting diarrhea Denies fever chills Physical Exam Vital Signs: Vital Signs: Last Vital Signs Temp 97.5 F 03/21/22 11:51 Pulse 75 03/21/22 11:51 Resp 20 03/21/22 11:51 BP 99/51 L 03/21/22 11:51 Pulse Ox 96 03/21/22 11:51 O2 Del Method 03/21/22 11:51 O2 Flow Rate 2 03/21/22 11:51 BMI result Body Mass Index 41.5 Const: Other: Somnolent but arousable Resp: Other: Clear to auscultation bilaterally no rales rhonchi wheezes Cardio: Other: No S4; positive S1-S2; no S3 murmurs rubs or gallops GI: Other: Soft nontender nondistended normoactive bowel sounds Extrem: Other: Edema bilateral Objective Data Active Medications Acetaminophen (Acetaminophen 325 Mg Tablet) 650 mg PO Q6H PRN PRN Reason: Pain, Mild (Pain Scale 1-3) Albuterol Sulfate (Albuterol Sulfate 90 Mcg 8 Gm Inhaler) 2 puff INHALE Q4H PRN PRN Reason: Wheezing Aspirin (Aspirin Enteric Coated 81 Mg Tablet.) 81 mg PO DAILY [facility] Last Admin: 03/21/22 09:05 Dose: 81 mg Documented By: TAMAR Atorvastatin Calcium (Atorvastatin Calcium 40 Mg Tablet) 40 mg PO DAILY [facility] Last Admin: 03/21/22 09:04 Dose: 40 mg Documented By: TAMAR Carvedilol (Carvedilol 12.5 Mg Tablet) 12.5 mg PO BID [facility]; Protocol Last Admin: 03/21/22 09:05 Dose: 12.5 mg Documented By: TAMAR Clonidine HCl (Clonidine Hcl 0.1 Mg Tablet) 0.1 mg PO TID [facility]; Protocol Last Admin: 03/21/22 09:05 Dose: 0.1 mg Documented By: TAMAR Dapsone (Dapsone 25 Mg Tablet) 100 mg PO DAILY [facility] Last Admin: 03/21/22 09:04 Dose: 100 mg Documented By: TAMAR Dextrose (Dextrose 50 % 25 Gm/50 Ml Syringe) 25 gm IVPUSH Q15M PRN; Protocol PRN Reason: per Hypoglycemia Standing Ord. Docusate Sodium (Docusate Sodium 100 Mg Capsule) 100 mg PO BID PRN PRN Reason: Constipation Last Admin: 03/21/22 07:52 Dose: 100 mg Documented By: TAMAR Duloxetine HCl (Duloxetine Hcl 30 Mg Capsule.) 30 mg PO DAILY [facility] Last Admin: 03/21/22 09:05 Dose: 30 mg Documented By: TAMAR Ferrous Sulfate (Ferrous Sulfate 324 Mg Tablet.) 324 mg PO TIDWM [facility] Last Admin: 03/21/22 12:06 Dose: 324 mg Documented By: TAMAR Fluticasone Propionate (Fluticasone Propionate Nasal 16 Gm [place]) 1 spray NOSTRIL-B DAILY [facility] Last Admin: 03/21/22 09:39 Dose: Not Given Documented By: TAMAR Non-Admin Reason: Patient Refused Glucose (Glucose Gel 15 Gm Gel..Gram.) 15 gm PO Q15M PRN; Protocol PRN Reason: per Hypoglycemia Standing Ord. Heparin Sodium (Porcine) (Heparin Sodium,Porcine 5,000 Unit/Ml Vial) 5,000 unit SUBCUT Q12H [facility] Last Admin: 03/21/22 05:14 Dose: 5,000 unit Documented By: PILY Hydralazine HCl (Hydralazine Hcl 50 Mg Tablet) 50 mg PO TID [facility]; Protocol Last Admin: 03/21/22 09:05 Dose: 50 mg Documented By: TAMAR Insulin Glargine (Insulin Glargine,Hum.Rec.Anlog 100 Unit/Ml 10 Ml Vial) 50 unit SUBCUT DAILY [facility] Last Admin: 03/21/22 09:04 Dose: 50 unit Documented By: TAMAR Insulin Human Lispro (Insulin Lispro 100 Unit/Ml 3 Ml Vial) 0 unit SUBCUT QIDACHS [facility]; Protocol Last Admin: 03/21/22 12:06 Dose: 4 unit Documented By: TAMAR Isosorbide Mononitrate (Isosorbide Mononitrate 30 Mg Tab.Er.24h) 30 mg PO DAILY [facility]; Protocol Last Admin: 03/21/22 09:04 Dose: 30 mg Documented By: TAMAR Loratadine (Loratadine 10 Mg Tablet) 10 mg PO DAILY [facility] Last Admin: 03/21/22 09:05 Dose: 10 mg Documented By: TAMAR Multivitamins/Vitamin C (Multivitamin Tablet) 1 tab PO DAILY [facility] Last Admin: 03/21/22 09:04 Dose: 1 tab Documented By: TAMAR Non-Formulary Medication (Buprenorphine) 1 patch TOPICAL QWEEK [facility] Nystatin/Triamcinolone Acetonide (Nystatin/Triamcinolone Cream 15 Gm Tube) 1 appl TOPICAL BID [facility] Last Admin: 03/21/22 09:12 Dose: 1 appl Documented By: TAMAR Omeprazole (Omeprazole 20 Mg Capsule.Dr) 20 mg PO DAILY@0630 [facility] Last Admin: 03/21/22 05:14 Dose: 20 mg Documented By: PILY Ondansetron HCl (Ondansetron Hcl 4 Mg/2 Ml Vial) 4 mg IVPUSH Q8H PRN PRN Reason: Nausea and Vomiting Last Admin: 03/20/22 19:47 Dose: 4 mg Documented By: PILY Oxycodone HCl (Oxycodone Hcl Immed Release 5 Mg Tablet) 10 mg PO Q6H PRN PRN Reason: severe pain Last Admin: 03/21/22 03:24 Dose: 10 mg Documented By: SPIKE Pharmacy Consult (Consult Rx Perform Med Rec) 1 each MISCELLANE ONCE PRN PRN Reason: probable admission Polyethylene Glycol (Polyethylene Glycol 3350 17 Gm Powd.Pack) 17 gm PO DAILY [facility] Last Admin: 03/21/22 07:52 Dose: 17 gm Documented By: TAMAR Prednisone (Prednisone 5 Mg Tablet) 12.5 mg PO DAILY [facility] Last Admin: 03/21/22 09:05 Dose: 12.5 mg Documented By: TAMAR Sacubitril/Valsartan (Sacubitril/Valsartan 49/51 1 Tab Tablet) 1 tab PO BID [facility]; Protocol Last Admin: 03/21/22 09:04 Dose: 1 tab Documented By: TAMAR Senna/Docusate Sodium (Sennosides/Docusate Sodium Tablet) 1 tab PO BEDTIME [facility] Last Admin: 03/20/22 21:15 Dose: 1 tab Documented By: PILY Sitagliptin Phosphate (Sitagliptin Phosphate 25 Mg Tablet) 25 mg PO DAILY [facility] Last Admin: 03/21/22 09:05 Dose: 25 mg Documented By: TAMAR Sodium Chloride (0.9 % Sodium Chloride Flush 3 Ml Syringe) 3 ml IVFLUSH QSHIFT [facility] Last Admin: 03/21/22 08:01 Dose: Not Given Documented By: TAMAR Non-Admin Reason: No Access Tamsulosin HCl (Tamsulosin Hcl 0.4 Mg Capsule) 0.4 mg PO DAILY@1730 [facility] Last Admin: 03/20/22 21:14 Dose: 0.4 mg Documented By: PILY Vitamin D (Cholecalciferol (Vitamin D3) 25 Mcg Tablet) 25 mcg PO DAILY [facility] Last Admin: 03/21/22 09:05 Dose: 25 mcg Documented By: TAMAR Labs CBC & Chem 7: 03/21/22 05:27 03/21/22 05:27 Labs: Laboratory Results - last 24 hr 03/20/22 03/20/22 03/20/22 09:57 09:57 09:57 MCV MCH MCHC RDW Plt Count MPV Immature Gran % (Auto) Neut % (Auto) Lymph % (Auto) [place] % (Auto) Eos % (Auto) Baso % (Auto) Lymph # (Auto) [place] # (Auto) Eos # (Auto) Baso # (Auto) Abs Immat Gran (auto) Absolute Neuts (auto) Absolute Nucleated RBC Nucleated RBC % (auto) Anion Gap Estim Creat Clear Calc Estimated GFR POC Glucose Fasting Glucose Calcium Total Bilirubin AST ALT Alkaline Phosphatase Total Protein Albumin Urine Osmolality 297 L Ur Random Sodium 27.0 Urine Creatinine 221.50 Urine Microalbumin > 2000.0 Microalb/Creat Ratio 902.9 03/20/22 03/20/22 03/21/22 15:46 20:00 05:27 MCV 93.7 MCH 30.4 MCHC 32.4 RDW 14.6 Plt Count 198 D MPV 12.3 Immature Gran % (Auto) 1.5 H Neut % (Auto) 76.3 H Lymph % (Auto) 13.6 L [place] % (Auto) 8.3 Eos % (Auto) 0.0 Baso % (Auto) 0.3 Lymph # (Auto) 1.2 [place] # (Auto) 0.7 Eos # (Auto) 0.0 Baso # (Auto) 0.0 Abs Immat Gran (auto) 0.13 H Absolute Neuts (auto) 6.6 Absolute Nucleated RBC 0.000 Nucleated RBC % (auto) 0.0 Anion Gap Estim Creat Clear Calc Estimated GFR POC Glucose 246 H 198 H Fasting Glucose Calcium Total Bilirubin AST ALT Alkaline Phosphatase Total Protein Albumin Urine Osmolality Ur Random Sodium Urine Creatinine Urine Microalbumin Microalb/Creat Ratio 03/21/22 03/21/22 03/21/22 05:27 07:55 11:23 MCV MCH MCHC RDW Plt Count MPV Immature Gran % (Auto) Neut % (Auto) Lymph % (Auto) [place] % (Auto) Eos % (Auto) Baso % (Auto) Lymph # (Auto) [place] # (Auto) Eos # (Auto) Baso # (Auto) Abs Immat Gran (auto) Absolute Neuts (auto) Absolute Nucleated RBC Nucleated RBC % (auto) Anion Gap 15 Estim Creat Clear Calc 21.5 Estimated GFR 15 POC Glucose 149 H 186 H Fasting Glucose 117 H Calcium 9.1 D Total Bilirubin 0.4 AST 14 ALT 15 Alkaline Phosphatase 63 Total Protein 6.6 Albumin 3.7 Urine Osmolality Ur Random Sodium Urine Creatinine Urine Microalbumin Microalb/Creat Ratio Assessment and Plan (1) HFrEF (heart failure with reduced ejection fraction): Status: Acute (2) CKD (chronic kidney disease): Status: Acute (3) Hypertension: Status: Acute Plan 67yo M with HTN, HFrEF, NICM, DM2, DM foot infection s/p R BKA, hx CVA, BLANCO not on CPAP, and psoriasis. ? Recently on HD for 2 mo but taken off 3 wk ago presumably due to renal recovery.? Presenting with 2 days of dyspnea + edema, found to be in acute respiratory distress due to volume overload. 1.Acute hpyoxic respiratory failure due to acute/chronic HFrEF - as per Renal; DC Lasix drip. HD today tomorrow likely discharge 03/23/2022 -Thursday HD in [place] -strict I&O -follow renals/divalents 2.LAUREEN/CKD4, -HD today -will continue Lasix drip 3. HTN -acceptable control on current therapies - continue Entresto, carvedilol, clonidine, hydralazine, Imdur 4.DM2 with hyperglycemia - basal/bolus insulin -adjust as indicated Full code Heparin Requires ongoing hospitalization for IV diuresis Time Spent With Patient Time: Total time managing care of this patient today ____ minutes. Quality Stroke Does the patient have a stroke diagnosis?: No VTE Prior VTE?: No VTE Risk Level:: Medical - moderate - high VTE Device Contraindication: N/A - Device Ordered VTE Drug Contraindication: N/A - Med Ordered
--- NOTE | 2022-03-21 14:57 | MHC.CM.PN ---
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
[2022-03-21] MEDS: ondansetron HCL 4 MG/2 ML VIAL IVPUSH (15:20)
[2022-03-21] MEDS: 0.9 % Sodium Chloride Flush 3 ML SYRINGE IVFLUSH ×2 (15:21→20:58)
[2022-03-21 17:21] LABS: Glucose, Whole Blood 183 mg/dL (60-115)
[2022-03-21] MEDS: Tamsulosin HCL 0.4 MG CAPSULE PO (17:35)
--- NOTE | 2022-03-21 19:06 | PC.NURSE ---
pt has been refusing high fall risk alarms and precautions. pt was educated as to the rationale behind these measures but remained insistent.
--- NOTE | 2022-03-21 20:26 | PM.EVENT ---
Event Note Date of Service: 03/21/22 Event Note: pt hypotensive post dialysis. asymptomatic. bp 80s/50s. will give 500 cc of fluids and hold bedtime antihypertensives Time Spent With Patient Time: Total time managing care of this patient today ____ minutes.
[2022-03-21 20:28] LABS: Glucose, Whole Blood 209 mg/dL (60-115)
[2022-03-21] MEDS: Sennosides/Docusate Sodium TABLET 1 TAB PO (20:55)
[2022-03-21] MEDS: Lactated Ringers 500 ML 999 ML IV (21:02)
[2022-03-22] VITALS: BP 121/58; PULSE 77; RESP 15; TEMP 36.6; O2SAT 95
[2022-03-22 03:06] VITALS: BP 126/60; PULSE 80; RESP 16; TEMP 36.6; O2SAT 95
[2022-03-22] MEDS: Heparin Sodium,Porcine 5,000 UNIT/ML VIAL 5000 UNIT SUBCUT ×2 (05:51→16:40)
[2022-03-22 06:31] LABS: MANUAL DIFF FLAG NO
[2022-03-22 06:37] LABS: Basophils Percent Auto 0.4 % (0-2); Hematocrit 27.1 % (42.0-52.0); Hemoglobin 8.9 g/dl (14.0-18.0); Imm Gran Abs Auto 0.12 X10*3/uL (0.00-0.03); Imm Gran Pct Auto 1.4 % (0.0-0.4); Lymphocytes Absolute Auto 0.9 X10*3/uL (1.2-4.9); Mean Corpuscular HGB Conc 32.8 g/dl (31.0-36.0); Mean Corpuscular Hemoglobin 30.6 pg (27.0-33.0); Mean Corpuscular Volume 93.1 fL (80.0-98.0); Mean Platelet Volume 12.3 fL (9.4-12.4); Monocytes Absolute Auto 0.8 X10*3/uL (0.1-1.2); Monocytes Percent Auto 10.1 % (2-11); Neutrophils Absolute Auto 6.4 x10*3/uL (2.0-8.3); Neutrophils Percent Auto 77.1 % (45-73); Platelet Count 150 X10*3/uL (160-400); Red Blood Count 2.91 X10*6/uL (4.60-5.80); Red Cell Distribution Width 14.6 % (11.0-16.0); White Blood Count 8.3 X10*3/uL (4.8-10.8)
[2022-03-22 07:13] LABS: Alanine Aminotransferase 13 U/L (0-40); Albumin Level 3.4 g/dL (3.5-5.0); Alkaline Phosphatase 60 U/L (39-117); Anion Gap 16 (12-20); Aspartate Amino Transferase 10 U/L (5-37); Bilirubin Total 0.5 mg/dL (0.0-1.0); Blood Urea Nitrogen 34 mg/dL (9-16); Calcium 8.9 mg/dL (8.4-10.2); Carbon Dioxide 21 mmol/L (22-29); Chloride 100 mmol/L (96-108); Creatinine Clr Calc Pharmacy 17.4; Estimated Glomerular Filt Rate 12; Glucose Fasting 211 mg/dL (60-99); Potassium 4.7 mmol/L (3.3-5.1); Sodium 132 mmol/L (135-145)
[2022-03-22 07:21] LABS: Glucose, Whole Blood 187 mg/dL (60-115)
[2022-03-22 07:32] VITALS: BP 117/54; PULSE 79; RESP 20; TEMP 36.2; O2SAT 96
[2022-03-22] MEDS: carvediloL 12.5 MG TABLET PO ×2 (07:37→21:10)
[2022-03-22] MEDS: Atorvastatin Calcium 40 MG TABLET PO (07:37)
[2022-03-22] MEDS: Loratadine 10 MG TABLET PO (07:38)
[2022-03-22] MEDS: predniSONE 5 MG TABLET 12.5 MG PO (07:38)
[2022-03-22] MEDS: Isosorbide Mononitrate 30 MG TAB.ER.24H PO (07:39)
[2022-03-22] MEDS: hydrALAZINE HCl 50 MG TABLET PO ×2 (07:39→21:11)
[2022-03-22] MEDS: Cholecalciferol (Vitamin D3) 25 MCG TABLET PO (07:39)
[2022-03-22] MEDS: Sacubitril/Valsartan 49/51 1 TAB TABLET PO ×2 (07:39→21:11)
[2022-03-22] MEDS: Ferrous Sulfate 324 MG TABLET.DR PO ×2 (07:39→16:38)
[2022-03-22] MEDS: Dapsone 25 MG TABLET 100 MG PO (07:40)
[2022-03-22] MEDS: SITagliptin Phosphate 25 MG TABLET PO (07:40)
[2022-03-22] MEDS: polyethylene glycoL 3350 17 GM POWD.PACK PO (07:40)
[2022-03-22] MEDS: DULoxetine HCl 30 MG CAPSULE.DR PO (07:40)
[2022-03-22] MEDS: Multivitamin TABLET 1 TAB PO (07:40)
[2022-03-22] MEDS: Insulin Glargine,Hum.rec.anlog 100 UNIT/ML 10 ML VIAL 50 UNIT SUBCUT (07:41)
[2022-03-22] MEDS: cloNIDine HCL 0.1 MG TABLET PO ×2 (07:41→16:37)
[2022-03-22] MEDS: Aspirin Enteric Coated 81 MG TABLET.DR PO (07:41)
[2022-03-22] MEDS: Insulin Lispro 100 UNIT/ML 3 ML VIAL SUBCUT ×3 (07:42→21:14)
[2022-03-22] MEDS: 0.9 % Sodium Chloride Flush 3 ML SYRINGE IVFLUSH ×2 (07:45→16:47)
[2022-03-22] MEDS: Fluticasone Propionate Nasal 16 GM SPRAY 1 SPRAY NOSTRIL-B (07:46)
--- NOTE | 2022-03-22 10:00 | PC.NURSE ---
Patient to dialysis at this time
--- NOTE | 2022-03-22 11:07 | PM.PNNEP ---
Subjective Subjective Date of Service: 03/22/22 Principal diagnosis: CHF, renal failure Interval history: seen and examined on dialysis feels better Physical Exam Vital Signs: Vital Signs: Last Vital Signs Temp 97.2 F 03/22/22 07:32 Pulse 79 03/22/22 07:32 Resp 20 03/22/22 07:32 BP 117/54 L 03/22/22 07:32 Pulse Ox 96 03/22/22 07:32 O2 Del Method 03/22/22 07:32 O2 Flow Rate 2 03/22/22 07:32 BMI result Body Mass Index 41.5 Const: General: comfortable and no acute distress HEENT: Head: Yes normocephalic and Yes atraumatic Neck: Neck: Yes supple Resp: Auscultation: diminished lung sounds Cardio: Heart sounds: S1 normal heart sound present and S2 normal heart sound present GI: Palpation (GI): Soft to palpation and nontender Extrem: General: Yes edema Objective Data Labs CBC & Chem 7: 03/22/22 05:50 03/22/22 05:50 Labs: Laboratory Results - last 24 hr 03/21/22 03/21/22 03/21/22 11:23 17:18 20:11 WBC RBC Hgb Hct MCV MCH MCHC RDW Plt Count MPV Immature Gran % (Auto) Neut % (Auto) Lymph % (Auto) [place] % (Auto) Eos % (Auto) Baso % (Auto) Lymph # (Auto) [place] # (Auto) Eos # (Auto) Baso # (Auto) Abs Immat Gran (auto) Absolute Neuts (auto) Absolute Nucleated RBC Nucleated RBC % (auto) Sodium Potassium Chloride Carbon Dioxide Anion Gap BUN Creatinine Estim Creat Clear Calc Estimated GFR POC Glucose 186 H 183 H 209 H Fasting Glucose Calcium Total Bilirubin AST ALT Alkaline Phosphatase Total Protein Albumin 03/22/22 03/22/22 03/22/22 05:50 05:50 07:12 WBC 8.3 RBC 2.91 L Hgb 8.9 L Hct 27.1 L MCV 93.1 MCH 30.6 MCHC 32.8 RDW 14.6 Plt Count 150 L MPV 12.3 Immature Gran % (Auto) 1.4 H Neut % (Auto) 77.1 H Lymph % (Auto) 11.[address] [place] % (Auto) 10.1 Eos % (Auto) 0.0 Baso % (Auto) 0.4 Lymph # (Auto) 0.[address] [place] # (Auto) 0.8 Eos # (Auto) 0.0 Baso # (Auto) 0.0 Abs Immat Gran (auto) 0.12 H Absolute Neuts (auto) 6.4 Absolute Nucleated RBC 0.000 Nucleated RBC % (auto) 0.0 Sodium 132 L Potassium 4.7 Chloride 100 Carbon Dioxide 21 L Anion Gap 16 BUN 34 H Creatinine 4.92 H* Estim Creat Clear Calc 17.4 Estimated GFR 12 POC Glucose 187 H Fasting Glucose 211 H Calcium 8.9 Total Bilirubin 0.5 AST 10 ALT 13 Alkaline Phosphatase 60 Total Protein 6.0 L Albumin 3.4 L Microbiology Microbiology Results: Microbiology 03/13/22 13:02 Blood - Venous Blood Culture - Final No growth after 5 days. 03/13/22 13:02 Blood - Venous Blood Culture - Final No growth after 5 days. Procedures Date of Service Date of Service: 03/22/22 Assessment & Plan Assessment and plan (1) Acute kidney injury: Status: Acute (2) HFrEF (heart failure with reduced ejection fraction): Status: Acute (3) Anemia: Status: Acute (4) CKD (chronic kidney disease) stage 4, GFR 15-29 ml/min: Status: Acute Plan LAUREEN super imposed on advanced CKD due to DM/HTN probably now ESRD h/o HFrEF and diastolic dysfunction PLAN HD today UF as tolerated renal diet phosphate binders outpatient HD arranged at [place] [facility] unit first shift Time Spent With Patient Time: Total time managing care of this patient today ____ minutes. Progress Note: Quality Stroke Does the patient have a stroke diagnosis?: No
[2022-03-22 13:45] LABS: Glucose, Whole Blood 183 mg/dL (60-115)
[2022-03-22 14:22] VITALS: BP 94/51; PULSE 89; RESP 20; TEMP 36.1; O2SAT 93
--- NOTE | 2022-03-22 15:03 | P.PNIM_ITS ---
Subjective Subjective Date of Service: 03/22/22 Interval History: Markedly improved per patient with dialysis Review of Systems Denies chest pain Denies shortness of breath Denies nausea vomiting diarrhea Denies fever chills Physical Exam Vital Signs: Vital Signs: Last Vital Signs Temp 97.0 F 03/22/22 14:22 Pulse 89 03/22/22 14:22 Resp 20 03/22/22 14:22 BP 94/51 L 03/22/22 14:22 Pulse Ox 93 03/22/22 14:22 O2 Del Method 03/22/22 14:22 O2 Flow Rate 2 03/22/22 14:22 BMI result Body Mass Index 41.5 Const: Other: Awake alert no acute distress Resp: Other: Clear to auscultation bilaterally no rales rhonchi or wheezes Cardio: Other: No S4; positive S1-S2; no S3 murmurs rubs or gallops GI: Other: Soft nontender nondistended normoactive bowel sounds Extrem: Other: No edema bilaterally Objective Data Active Medications Acetaminophen (Acetaminophen 325 Mg Tablet) 650 mg PO Q6H PRN PRN Reason: Pain, Mild (Pain Scale 1-3) Albuterol Sulfate (Albuterol Sulfate 90 Mcg 8 Gm Inhaler) 2 puff INHALE Q4H PRN PRN Reason: Wheezing Aspirin (Aspirin Enteric Coated 81 Mg Tablet.) 81 mg PO DAILY [facility] Last Admin: 03/22/22 07:41 Dose: 81 mg Documented By: GARIMA Atorvastatin Calcium (Atorvastatin Calcium 40 Mg Tablet) 40 mg PO DAILY [facility] Last Admin: 03/22/22 07:37 Dose: 40 mg Documented By: GARIMA Carvedilol (Carvedilol 12.5 Mg Tablet) 12.5 mg PO BID [facility]; Protocol Last Admin: 03/22/22 07:37 Dose: 12.5 mg Documented By: GARIMA Clonidine HCl (Clonidine Hcl 0.1 Mg Tablet) 0.1 mg PO TID [facility]; Protocol Last Admin: 03/22/22 14:28 Dose: Not Given Documented By: GARIMA Non-Admin Reason: Decreased Blood Pressure Dapsone (Dapsone 25 Mg Tablet) 100 mg PO DAILY [facility] Last Admin: 03/22/22 07:40 Dose: 100 mg Documented By: GARIMA Dextrose (Dextrose 50 % 25 Gm/50 Ml Syringe) 25 gm IVPUSH Q15M PRN; Protocol PRN Reason: per Hypoglycemia Standing Ord. Docusate Sodium (Docusate Sodium 100 Mg Capsule) 100 mg PO BID PRN PRN Reason: Constipation Last Admin: 03/21/22 07:52 Dose: 100 mg Documented By: SOLMONA Duloxetine HCl (Duloxetine Hcl 30 Mg Capsule.) 30 mg PO DAILY [facility] Last Admin: 03/22/22 07:40 Dose: 30 mg Documented By: GARIMA Ferrous Sulfate (Ferrous Sulfate 324 Mg Tablet.) 324 mg PO TIDWM [facility] Last Admin: 03/22/22 14:00 Dose: Not Given Documented By: GARIMA Non-Admin Reason: Off unit: Dialysis Fluticasone Propionate (Fluticasone Propionate Nasal 16 Gm [place]) 1 spray NOSTRIL-B DAILY [facility] Last Admin: 03/22/22 07:46 Dose: 1 spray Documented By: GARIMA Glucose (Glucose Gel 15 Gm Gel..Gram.) 15 gm PO Q15M PRN; Protocol PRN Reason: per Hypoglycemia Standing Ord. Heparin Sodium (Porcine) (Heparin Sodium,Porcine 5,000 Unit/Ml Vial) 5,000 unit SUBCUT Q12H [facility] Last Admin: 03/22/22 05:51 Dose: 5,000 unit Documented By: BULMARO Hydralazine HCl (Hydralazine Hcl 50 Mg Tablet) 50 mg PO TID [facility]; Protocol Last Admin: 03/22/22 14:28 Dose: Not Given Documented By: GARIMA Non-Admin Reason: Decreased Blood Pressure Insulin Glargine (Insulin Glargine,Hum.Rec.Anlog 100 Unit/Ml 10 Ml Vial) 50 unit SUBCUT DAILY [facility] Last Admin: 03/22/22 07:41 Dose: 50 unit Documented By: GARIMA Insulin Human Lispro (Insulin Lispro 100 Unit/Ml 3 Ml Vial) 0 unit SUBCUT QIDACHS [facility]; Protocol Last Admin: 03/22/22 11:35 Dose: Not Given Documented By: GARIMA Non-Admin Reason: Off unit: Dialysis Isosorbide Mononitrate (Isosorbide Mononitrate 30 Mg Tab.Er.24h) 30 mg PO DAILY [facility]; Protocol Last Admin: 03/22/22 07:39 Dose: 30 mg Documented By: GARIMA Loratadine (Loratadine 10 Mg Tablet) 10 mg PO DAILY [facility] Last Admin: 03/22/22 07:38 Dose: 10 mg Documented By: GARIMA Multivitamins/Vitamin C (Multivitamin Tablet) 1 tab PO DAILY [facility] Last Admin: 03/22/22 07:40 Dose: 1 tab Documented By: GARIMA Nystatin/Triamcinolone Acetonide (Nystatin/Triamcinolone Cream 15 Gm Tube) 1 appl TOPICAL BID [facility] Last Admin: 03/22/22 07:46 Dose: Not Given Documented By: GARIMA Non-Admin Reason: Patient Refused Omeprazole (Omeprazole 20 Mg Capsule.Dr) 20 mg PO DAILY@0630 [facility] Last Admin: 03/22/22 05:59 Dose: Not Given Documented By: BULMARO Non-Admin Reason: Patient Refused Ondansetron HCl (Ondansetron Hcl 4 Mg/2 Ml Vial) 4 mg IVPUSH Q8H PRN PRN Reason: Nausea and Vomiting Last Admin: 03/21/22 15:20 Dose: 4 mg Documented By: TAMAR Oxycodone HCl (Oxycodone Hcl Immed Release 5 Mg Tablet) 10 mg PO Q6H PRN PRN Reason: severe pain Last Admin: 03/21/22 03:24 Dose: 10 mg Documented By: SPIKE Pharmacy Consult (Consult Rx Perform Med Rec) 1 each MISCELLANE ONCE PRN PRN Reason: probable admission Polyethylene Glycol (Polyethylene Glycol 3350 17 Gm Powd.Pack) 17 gm PO DAILY [facility] Last Admin: 03/22/22 07:40 Dose: 17 gm Documented By: GARIMA Prednisone (Prednisone 5 Mg Tablet) 12.5 mg PO DAILY [facility] Last Admin: 03/22/22 07:38 Dose: 12.5 mg Documented By: GARIMA Sacubitril/Valsartan (Sacubitril/Valsartan 49/51 1 Tab Tablet) 1 tab PO BID [facility]; Protocol Last Admin: 03/22/22 07:39 Dose: 1 tab Documented By: GARIMA Senna/Docusate Sodium (Sennosides/Docusate Sodium Tablet) 1 tab PO BEDTIME [facility] Last Admin: 03/21/22 20:55 Dose: 1 tab Documented By: BULMARO Sitagliptin Phosphate (Sitagliptin Phosphate 25 Mg Tablet) 25 mg PO DAILY [facility] Last Admin: 03/22/22 07:40 Dose: 25 mg Documented By: GARIAM Sodium Chloride (0.9 % Sodium Chloride Flush 3 Ml Syringe) 3 ml IVFLUSH QSHIFT [facility] Last Admin: 03/22/22 07:45 Dose: 3 ml Documented By: GARIMA Tamsulosin HCl (Tamsulosin Hcl 0.4 Mg Capsule) 0.4 mg PO DAILY@1730 [facility] Last Admin: 03/21/22 17:35 Dose: 0.4 mg Documented By: TAMAR Vitamin D (Cholecalciferol (Vitamin D3) 25 Mcg Tablet) 25 mcg PO DAILY [facility] Last Admin: 03/22/22 07:39 Dose: 25 mcg Documented By: GARIMA Labs CBC & Chem 7: 03/22/22 05:50 03/22/22 05:50 Labs: Laboratory Results - last 24 hr 03/21/22 03/21/22 03/22/22 17:18 20:11 05:50 MCV 93.1 MCH 30.6 MCHC 32.8 RDW 14.6 Plt Count 150 L MPV 12.3 Immature Gran % (Auto) 1.4 H Neut % (Auto) 77.1 H Lymph % (Auto) 11.0 L [place] % (Auto) 10.1 Eos % (Auto) 0.0 Baso % (Auto) 0.4 Lymph # (Auto) 0.9 L [place] # (Auto) 0.8 Eos # (Auto) 0.0 Baso # (Auto) 0.0 Abs Immat Gran (auto) 0.12 H Absolute Neuts (auto) 6.4 Absolute Nucleated RBC 0.000 Nucleated RBC % (auto) 0.0 Anion Gap Estim Creat Clear Calc Estimated GFR POC Glucose 183 H 209 H Fasting Glucose Calcium Total Bilirubin AST ALT Alkaline Phosphatase Total Protein Albumin 03/22/22 03/22/22 03/22/22 05:50 07:12 13:42 MCV MCH MCHC RDW Plt Count MPV Immature Gran % (Auto) Neut % (Auto) Lymph % (Auto) [place] % (Auto) Eos % (Auto) Baso % (Auto) Lymph # (Auto) [place] # (Auto) Eos # (Auto) Baso # (Auto) Abs Immat Gran (auto) Absolute Neuts (auto) Absolute Nucleated RBC Nucleated RBC % (auto) Anion Gap 16 Estim Creat Clear Calc 17.4 Estimated GFR 12 POC Glucose 187 H 183 H Fasting Glucose 211 H Calcium 8.9 Total Bilirubin 0.5 AST 10 ALT 13 Alkaline Phosphatase 60 Total Protein 6.0 L Albumin 3.4 L Assessment and Plan (1) HFrEF (heart failure with reduced ejection fraction): Status: Acute (2) CKD (chronic kidney disease) stage 4, GFR 15-29 ml/min: Status: Acute Plan 7yo M with HTN, HFrEF, NICM, DM2, DM foot infection s/p R BKA, hx CVA, BLANCO not on CPAP, and psoriasis. ? Recently on HD for 2 mo but taken off 3 wk ago presumably due to renal recovery.? Presenting with 2 days of dyspnea + edema, found to be in acute respiratory distress due to volume overload. Has responded well to diuresis 1.Acute hpyoxic respiratory failure due to acute/chronic HFrEF - HD today tomorrow likely discharge 03/23/2022 -Thursday? HD in [place] -strict I&O -follow renals/divalents 2.LAUREEN/CKD4, -HD today -will continue Lasix drip 3. HTN -acceptable control on current therapies - continue Entresto, carvedilol, clonidine, hydralazine, Imdur 4.DM2 with hyperglycemia - basal/bolus insulin -adjust as indicated Full code Heparin Time Spent With Patient Time: Total time managing care of this patient today ____ minutes. Quality Stroke Does the patient have a stroke diagnosis?: No VTE Prior VTE?: No VTE Risk Level:: Medical - moderate - high VTE Device Contraindication: N/A - Device Ordered VTE Drug Contraindication: N/A - Med Ordered
[2022-03-22 15:24] VITALS: BP 99/56; PULSE 94; RESP 16; TEMP 36.1; O2SAT 94
[2022-03-22 15:49] LABS: Glucose, Whole Blood 282 mg/dL (60-115)
[2022-03-22] MEDS: Tamsulosin HCL 0.4 MG CAPSULE PO (16:38)
[2022-03-22 19:31] VITALS: BP 95/51; PULSE 90; RESP 19; TEMP 36.3; O2SAT 94
[2022-03-22 19:55] LABS: Glucose, Whole Blood 312 mg/dL (60-115)
[2022-03-22] MEDS: Sennosides/Docusate Sodium TABLET 1 TAB PO (21:10)
[2022-03-23] VITALS (10 sets, daily range): BP systolic 86–143; BP diastolic 48–85; PULSE 81–90; RESP 17–20; TEMP 36–37.2; O2SAT 90–96
[2022-03-23] MEDS: 0.9 % Sodium Chloride Flush 3 ML SYRINGE IVFLUSH ×4 (00:16→20:27)
[2022-03-23] MEDS: Omeprazole 20 MG CAPSULE.DR PO ×2 (05:31→16:51)
[2022-03-23] MEDS: Heparin Sodium,Porcine 5,000 UNIT/ML VIAL 5000 UNIT SUBCUT ×2 (05:31→16:51)
[2022-03-23 07:43] LABS: Glucose, Whole Blood 207 mg/dL (60-115)
[2022-03-23] MEDS: carvediloL 3.125 MG TABLET 6.25 MG PO ×2 (08:03→20:25)
[2022-03-23] MEDS: Isosorbide Mononitrate 30 MG TAB.ER.24H PO (08:04)
[2022-03-23] MEDS: DULoxetine HCl 30 MG CAPSULE.DR PO (08:04)
[2022-03-23] MEDS: Acetaminophen 325 MG TABLET 650 MG PO (08:04)
[2022-03-23] MEDS: Sacubitril/Valsartan 49/51 1 TAB TABLET PO ×2 (08:04→20:26)
[2022-03-23] MEDS: Loratadine 10 MG TABLET PO (08:04)
[2022-03-23] MEDS: Cholecalciferol (Vitamin D3) 25 MCG TABLET PO (08:04)
[2022-03-23] MEDS: cloNIDine HCL 0.1 MG TABLET PO ×3 (08:04→20:26)
[2022-03-23] MEDS: Multivitamin TABLET 1 TAB PO (08:04)
[2022-03-23] MEDS: hydrALAZINE HCl 25 MG TABLET PO (08:05)
[2022-03-23] MEDS: SITagliptin Phosphate 25 MG TABLET PO (08:05)
[2022-03-23] MEDS: predniSONE 5 MG TABLET 12.5 MG PO (08:05)
[2022-03-23] MEDS: Atorvastatin Calcium 40 MG TABLET PO (08:05)
[2022-03-23] MEDS: Insulin Glargine,Hum.rec.anlog 100 UNIT/ML 10 ML VIAL 50 UNIT SUBCUT (08:06)
[2022-03-23] MEDS: Insulin Lispro 100 UNIT/ML 3 ML VIAL SUBCUT ×4 (08:06→20:26)
[2022-03-23] MEDS: Aspirin Enteric Coated 81 MG TABLET.DR PO (08:06)
[2022-03-23] MEDS: polyethylene glycoL 3350 17 GM POWD.PACK PO (08:06)
[2022-03-23] MEDS: Ferrous Sulfate 324 MG TABLET.DR PO ×3 (08:08→16:50)
[2022-03-23] MEDS: ondansetron HCL 4 MG/2 ML VIAL IVPUSH (10:37)
--- NOTE | 2022-03-23 10:53 | P.PNNP_ITS ---
Subjective Subjective Date of Service: 03/23/22 Principal diagnosis: CHF, renal failure Interval history: seen and examined discussed with medical attending had HD yesterday Physical Exam Vital Signs: Vital Signs: Last Vital Signs Temp 96.9 F 03/23/22 10:37 Pulse 83 03/23/22 10:37 Resp 20 03/23/22 10:37 BP 94/53 L 03/23/22 10:37 Pulse Ox 93 03/23/22 10:37 O2 Del Method 03/23/22 10:37 O2 Flow Rate 2 03/22/22 14:22 BMI result Body Mass Index 41.5 Const: General: comfortable and no acute distress HEENT: Head: Yes normocephalic and Yes atraumatic Neck: Neck: Yes supple Resp: Auscultation: diminished lung sounds Cardio: Heart sounds: S1 normal heart sound present and S2 normal heart sound present GI: Palpation (GI): Soft to palpation and nontender Extrem: General: Yes edema Objective Data Labs CBC & Chem 7: 03/22/22 05:50 03/22/22 05:50 Labs: Laboratory Results - last 24 hr 03/22/22 03/22/22 03/22/22 13:42 15:25 19:35 POC Glucose 183 H 282 H 312 H 03/23/22 07:13 POC Glucose 207 H Microbiology Microbiology Results: Microbiology 03/13/22 13:02 Blood - Venous Blood Culture - Final No growth after 5 days. 03/13/22 13:02 Blood - Venous Blood Culture - Final No growth after 5 days. Procedures Date of Service Date of Service: 03/23/22 Assessment & Plan Assessment and plan (1) Acute kidney injury: Status: Acute (2) HFrEF (heart failure with reduced ejection fraction): Status: Acute (3) Anemia: Status: Acute (4) CKD (chronic kidney disease) stage 4, GFR 15-29 ml/min: Status: Acute Plan s/p HD yesterday LAUREEN super imposed on advanced CKD due to DM/HTN probably now ESRD h/o HFrEF and diastolic dysfunction PLAN discontinue hydralazine HD on Thursday renal diet phosphate binders outpatient HD arranged at [facility] -- first shift Time Spent With Patient Time: Total time managing care of this patient today ____ minutes. Progress Note: Quality Stroke Does the patient have a stroke diagnosis?: No
[2022-03-23 11:32] LABS: Glucose, Whole Blood 198 mg/dL (60-115)
--- NOTE | 2022-03-23 11:36 | HO.PM.IMPN ---
Subjective Subjective Date of Service: 03/23/22 Interval History: edema + dyspnea improved BP again low overnight c/o heartburn Review of Systems Review of Systems: Yes all other systems are reviewed and are negative Physical Exam Vital Signs: Vital Signs: Last Vital Signs Temp 97.2 F 03/23/22 11:10 Pulse 82 03/23/22 11:10 Resp 20 03/23/22 11:10 BP 92/52 L 03/23/22 11:10 Pulse Ox 91 L 03/23/22 11:10 O2 Del Method 03/23/22 11:10 O2 Flow Rate 2 03/23/22 11:10 BMI result Body Mass Index 41.5 Gen: in no acute distress HEENT: sclera anicteric, moist mucus membranes Neck: supple Lungs: clear to auscultation bilaterally Heart: regular rate and rhythm, no murmurs Abd: soft, non-tender, non-distended, obese Ext: 1+ lower extremity edema, s/p R BKA Skin: warm/well-perfused Neuro: alert and oriented x3, no focal findings Psych: appropriate affect Objective Data Active Medications Acetaminophen (Acetaminophen 325 Mg Tablet) 650 mg PO Q6H PRN PRN Reason: Pain, Mild (Pain Scale 1-3) Last Admin: 03/23/22 08:04 Dose: 650 mg Documented By: GARIMA Albuterol Sulfate (Albuterol Sulfate 90 Mcg 8 Gm Inhaler) 2 puff INHALE Q4H PRN PRN Reason: Wheezing Aspirin (Aspirin Enteric Coated 81 Mg Tablet.) 81 mg PO DAILY [facility] Last Admin: 03/23/22 08:06 Dose: 81 mg Documented By: GARIMA Atorvastatin Calcium (Atorvastatin Calcium 40 Mg Tablet) 40 mg PO DAILY [facility] Last Admin: 03/23/22 08:05 Dose: 40 mg Documented By: GARIMA Carvedilol (Carvedilol 3.125 Mg Tablet) 6.25 mg PO BID [facility]; Protocol Last Admin: 03/23/22 08:03 Dose: 6.25 mg Documented By: GARIMA Clonidine HCl (Clonidine Hcl 0.1 Mg Tablet) 0.1 mg PO TID [facility]; Protocol Last Admin: 03/23/22 08:04 Dose: 0.1 mg Documented By: GARIMA Dapsone (Dapsone 25 Mg Tablet) 100 mg PO DAILY [facility] Last Admin: 03/22/22 07:40 Dose: 100 mg Documented By: GARIMA Dextrose (Dextrose 50 % 25 Gm/50 Ml Syringe) 25 gm IVPUSH Q15M PRN; Protocol PRN Reason: per Hypoglycemia Standing Ord. Docusate Sodium (Docusate Sodium 100 Mg Capsule) 100 mg PO BID PRN PRN Reason: Constipation Last Admin: 03/21/22 07:52 Dose: 100 mg Documented By: SOLISPE Duloxetine HCl (Duloxetine Hcl 30 Mg Capsule.) 30 mg PO DAILY [facility] Last Admin: 03/23/22 08:04 Dose: 30 mg Documented By: GARIMA Ferrous Sulfate (Ferrous Sulfate 324 Mg Tablet.) 324 mg PO TIDWM [facility] Last Admin: 03/23/22 08:08 Dose: 324 mg Documented By: GARIMA Fluticasone Propionate (Fluticasone Propionate Nasal 16 Gm Hooper) 1 spray NOSTRIL-B DAILY [facility] Last Admin: 03/23/22 08:13 Dose: Not Given Documented By: GARIMA Non-Admin Reason: Patient Refused Glucose (Glucose Gel 15 Gm Gel..Gram.) 15 gm PO Q15M PRN; Protocol PRN Reason: per Hypoglycemia Standing Ord. Heparin Sodium (Porcine) (Heparin Sodium,Porcine 5,000 Unit/Ml Vial) 5,000 unit SUBCUT Q12H [facility] Last Admin: 03/23/22 05:31 Dose: 5,000 unit Documented By: VIDYA Hydralazine HCl (Hydralazine Hcl 25 Mg Tablet) 25 mg PO TID [facility]; Protocol Last Admin: 03/23/22 08:05 Dose: 25 mg Documented By: GARIMA Insulin Glargine (Insulin Glargine,Hum.Rec.Anlog 100 Unit/Ml 10 Ml Vial) 50 unit SUBCUT DAILY [facility] Last Admin: 03/23/22 08:06 Dose: 50 unit Documented By: GARIMA Insulin Human Lispro (Insulin Lispro 100 Unit/Ml 3 Ml Vial) 0 unit SUBCUT QIDACHS [facility]; Protocol Last Admin: 03/23/22 08:06 Dose: 7 unit Documented By: GARIMA Isosorbide Mononitrate (Isosorbide Mononitrate 30 Mg Tab.Er.24h) 30 mg PO DAILY [facility]; Protocol Last Admin: 03/23/22 08:04 Dose: 30 mg Documented By: GARIMA Loratadine (Loratadine 10 Mg Tablet) 10 mg PO DAILY [facility] Last Admin: 03/23/22 08:04 Dose: 10 mg Documented By: GARIMA Multivitamins/Vitamin C (Multivitamin Tablet) 1 tab PO DAILY [facility] Last Admin: 03/23/22 08:04 Dose: 1 tab Documented By: GARIMA Nystatin/Triamcinolone Acetonide (Nystatin/Triamcinolone Cream 15 Gm Tube) 1 appl TOPICAL BID [facility] Last Admin: 03/23/22 08:13 Dose: Not Given Documented By: GARIMA Non-Admin Reason: Patient Refused Omeprazole (Omeprazole 20 Mg Capsule.) 20 mg PO BID@0630,1630 [facility] Ondansetron HCl (Ondansetron Hcl 4 Mg/2 Ml Vial) 4 mg IVPUSH Q8H PRN PRN Reason: Nausea and Vomiting Last Admin: 03/23/22 10:37 Dose: 4 mg Documented By: GARIMA Pharmacy Consult (Consult Rx Perform Med Rec) 1 each MISCELLANE ONCE PRN PRN Reason: probable admission Polyethylene Glycol (Polyethylene Glycol 3350 17 Gm Powd.Pack) 17 gm PO DAILY [facility] Last Admin: 03/23/22 08:06 Dose: 17 gm Documented By: GARIMA Prednisone (Prednisone 5 Mg Tablet) 12.5 mg PO DAILY [facility] Last Admin: 03/23/22 08:05 Dose: 12.5 mg Documented By: GARIMA Comments: = Sacubitril/Valsartan (Sacubitril/Valsartan 49/51 1 Tab Tablet) 1 tab PO BID [facility]; Protocol Last Admin: 03/23/22 08:04 Dose: 1 tab Documented By: GARIMA Senna/Docusate Sodium (Sennosides/Docusate Sodium Tablet) 1 tab PO BEDTIME [facility] Last Admin: 03/22/22 21:10 Dose: 1 tab Documented By: HUNG Sitagliptin Phosphate (Sitagliptin Phosphate 25 Mg Tablet) 25 mg PO DAILY [facility] Last Admin: 03/23/22 08:05 Dose: 25 mg Documented By: GARIMA Sodium Chloride (0.9 % Sodium Chloride Flush 3 Ml Syringe) 3 ml IVFLUSH QSHIFT [facility] Last Admin: 03/23/22 08:06 Dose: 3 ml Documented By: GARIMA Tamsulosin HCl (Tamsulosin Hcl 0.4 Mg Capsule) 0.4 mg PO DAILY@1730 [facility] Last Admin: 03/22/22 16:38 Dose: 0.4 mg Documented By: HUNG Vitamin D (Cholecalciferol (Vitamin D3) 25 Mcg Tablet) 25 mcg PO DAILY [facility] Last Admin: 03/23/22 08:04 Dose: 25 mcg Documented By: GARIMA Labs CBC & Chem 7: 03/22/22 05:50 03/22/22 05:50 Labs: Laboratory Results - last 24 hr 03/22/22 03/22/22 03/22/22 13:42 15:25 19:35 POC Glucose 183 H 282 H 312 H 03/23/22 03/23/22 07:13 11:09 POC Glucose 207 H 198 H Assessment and Plan (1) HFrEF (heart failure with reduced ejection fraction): Status: Acute (2) CKD (chronic kidney disease) stage 4, GFR 15-29 ml/min: Status: Acute Plan hospital d#11 67yo M with HTN, HFrEF, NICM, DM2, DM foot infection s/p R BKA, hx CVA, BLANCO not on CPAP, and psoriasis. ? Recently on HD for 2 mo but taken off 3 wk prior to admission presumably due to renal recovery.? Presenting with 2 days of dyspnea + edema, found to be in acute respiratory distress due to volume overload. Initially diuresed then placed back on HD. # LAUREEN/CKD4, now ESRD - HD MWF, has outpt placement # acute hypoxic respiratory failure due to acute/chronic HFrEF # HTN - weaned off O2 - diuresed then placed on HD - continue Entresto, carvedilol, clonidine, Imdur - d/c hydralazine due to hypotension; also decrease carvedilol dose # DM2 with hyperglycemia - basal/bolus insulin # plaque psoriasis - prednisone, dapsone # VTE ppx: UFH # dispo: anticipate home once hypotension resolved Time Spent With Patient Time: Total time managing care of this patient today __40__ minutes. Quality Stroke Does the patient have a stroke diagnosis?: No VTE Prior VTE?: No VTE Risk Level:: Medical - moderate - high VTE Device Contraindication: N/A - Device Ordered VTE Drug Contraindication: N/A - Med Ordered
[2022-03-23 16:31] LABS: Glucose, Whole Blood 274 mg/dL (60-115)
[2022-03-23] MEDS: Tamsulosin HCL 0.4 MG CAPSULE PO (16:50)
[2022-03-23 20:00] LABS: Glucose, Whole Blood 206 mg/dL (60-115)
[2022-03-23] MEDS: Sennosides/Docusate Sodium TABLET 1 TAB PO (20:25)
[2022-03-23] MEDS: Nystatin/Triamcinolone Cream 15 GM TUBE 1 APPL TOPICAL (20:31)
[2022-03-24 02:51] VITALS: BP 136/68; PULSE 92; RESP 16; TEMP 36.7; O2SAT 92
[2022-03-24] MEDS: Omeprazole 20 MG CAPSULE.DR PO (05:41)
[2022-03-24] MEDS: Heparin Sodium,Porcine 5,000 UNIT/ML VIAL 5000 UNIT SUBCUT (05:41)
[2022-03-24 07:06] VITALS: BP 115/55; PULSE 83; RESP 20; TEMP 36.6; O2SAT 98
[2022-03-24 07:27] LABS: Glucose, Whole Blood 195 mg/dL (60-115)
[2022-03-24] MEDS: Insulin Lispro 100 UNIT/ML 3 ML VIAL SUBCUT ×3 (08:43→16:45)
[2022-03-24] MEDS: Insulin Glargine,Hum.rec.anlog 100 UNIT/ML 10 ML VIAL 50 UNIT SUBCUT (08:43)
[2022-03-24] MEDS: Aspirin Enteric Coated 81 MG TABLET.DR PO (08:44)
[2022-03-24] MEDS: Multivitamin TABLET 1 TAB PO (08:44)
[2022-03-24] MEDS: Atorvastatin Calcium 40 MG TABLET PO (08:44)
[2022-03-24] MEDS: SITagliptin Phosphate 25 MG TABLET PO (08:44)
[2022-03-24] MEDS: cloNIDine HCL 0.1 MG TABLET PO ×2 (08:45→14:41)
[2022-03-24] MEDS: Isosorbide Mononitrate 30 MG TAB.ER.24H PO (08:45)
[2022-03-24] MEDS: Loratadine 10 MG TABLET PO (08:45)
[2022-03-24] MEDS: predniSONE 5 MG TABLET 12.5 MG PO (08:45)
[2022-03-24] MEDS: Ferrous Sulfate 324 MG TABLET.DR PO ×2 (08:45→14:41)
[2022-03-24] MEDS: Sacubitril/Valsartan 49/51 1 TAB TABLET PO (08:46)
[2022-03-24] MEDS: DULoxetine HCl 30 MG CAPSULE.DR PO (08:46)
[2022-03-24] MEDS: Nystatin/Triamcinolone Cream 15 GM TUBE 1 APPL TOPICAL (08:46)
[2022-03-24] MEDS: polyethylene glycoL 3350 17 GM POWD.PACK PO (08:46)
[2022-03-24] MEDS: carvediloL 3.125 MG TABLET 6.25 MG PO (08:46)
[2022-03-24] MEDS: Fluticasone Propionate Nasal 16 GM SPRAY 1 SPRAY NOSTRIL-B (08:46)
[2022-03-24] MEDS: 0.9 % Sodium Chloride Flush 3 ML SYRINGE IVFLUSH (08:48)
[2022-03-24] MEDS: Cholecalciferol (Vitamin D3) 25 MCG TABLET PO (08:48)
--- NOTE | 2022-03-24 11:01 | P.DS_ITS ---
DS: Providers Provider Date of Service: 03/24/22 Date of admission: 03/13/22 17:12 Date of discharge: 03/24/22 Primary care physician: Darline Mcgrath NP Consults: 03/13/22 16:31 Consult to Nephrology Routine Consulting Provider: [facility] Reason for consultation: fluid overload, former HD pt 03/13/22 16:48 Consult to Cardiology Routine Consulting Provider: Jose Angel Patterson Reason for consultation: adhf, nicm DS: Diagnosis Discharge Diagnosis (1) Acute on chronic kidney failure: Status: Acute (2) ESRD (end stage renal disease): Status: Acute (3) Volume overload: Status: Acute (4) Acute on chronic heart failure with preserved ejection fraction (HFpEF): Status: Acute (5) Nonischemic cardiomyopathy: Status: Acute (6) Morbid obesity: Status: Acute (7) Acute respiratory failure with hypoxia: Status: Acute DS: Summary Hospital Course Hospital Course: from my admission history and physical, 03/13/22: 67yo M with HTN, HFrEF, NICM, DM2, DM foot infection s/p R BKA, hx CVA, BLANCO not on CPAP, and psoriasis.? He was on HD for approximately 2 months and this was stopped 3 weeks ago.? His primary medicaid billing specialist is Haroldo Carreno at [facility].? He presents to the ED today with 2-3 days of worsening dyspnea along with leg swelling and abdominal swelling.? In the ED, he was struggling to breathe and was thus placed on BiPAP for one hour.? Initial SaO2 was 91%. ? He is currently on 1L of O2 via NC and SaO2 is 95%.? He was given 60 mg of IV furosemide.? V/Q scan showed low probability for pulmonary embolism.? BUN/Cr was 48/2.79.? BNP 605. He denies fever, cough, productive sputum, or chest pain.? He has been adherent with his CHF medications, including bumetanide, Entresto, and carvedilol. He was admitted to the [facility] and initially diuresed with furosemide infusion, but with little response. Echocardiography showed recovered EF but diastolic dysfunction. Ultimately, Nephrology was consulted and he was placed back on hemodialysis. An outpatient dialysis placement MWF was secured. Hypoxia resolved as his volume status improved. Due to hypotension, hydralazine was discontinued and carvedilol dose decreased. He was discharged home with VNA services. Time Spent with Patient Time attestation: Total time managing care of this patient today ____ minutes. Discharge coordination time: Greater than 30 minutes Quality: Safe Use of Opioids Does Pt have an Active Cancer Diagnosis on the Problem List?: No Quality: Stroke Does the patient have a stroke diagnosis?: No Physical Exam Vital Signs: Vital Signs: Last Vital Signs Temp 98 F 03/24/22 07:06 Pulse 83 03/24/22 07:06 Resp 20 03/24/22 07:06 BP 115/55 L 03/24/22 07:06 Pulse Ox 98 03/24/22 07:06 O2 Del Method 03/24/22 07:06 O2 Flow Rate 2 03/23/22 11:10 BMI result Body Mass Index 41.5 Gen: in no acute distress HEENT: sclera anicteric, moist mucus membranes Neck: supple Lungs: clear to auscultation bilaterally Heart: regular rate and rhythm, no murmurs Abd: soft, non-tender, non-distended, obese Ext: trace lower extremity edema, s/p R BKA Skin: warm/well-perfused, multiple psoriatic plaques Neuro: alert and oriented x3, no focal findings Psych: appropriate affect DS: Data Data Completed and Pending Completed studies during hospitalization [Text1]: Laboratory Results WBC 8.3 X10*3/uL (4.8-10.8) 03/22/22 05:50 RBC 2.91 X10*6/uL (4.60-5.80) L 03/22/22 05:50 Hgb 8.9 g/dl (14.0-18.0) L 03/22/22 05:50 Hct 27.1 % (42.0-52.0) L 03/22/22 05:50 MCV 93.1 fL (80.0-98.0) 03/22/22 05:50 MCH 30.6 pg (27.0-33.0) 03/22/22 05:50 MCHC 32.8 g/dl (31.0-36.0) 03/22/22 05:50 RDW 14.6 % (11.0-16.0) 03/22/22 05:50 Plt Count 150 X10*3/uL (160-400) L 03/22/22 05:50 MPV 12.3 fL (9.4-12.4) 03/22/22 05:50 Immature Gran % (Auto) 1.4 % (0.0-0.4) H 03/22/22 05:50 Neut % (Auto) 77.1 % (45-73) H 03/22/22 05:50 Lymph % (Auto) 11.0 % (20-40) L 03/22/22 05:50 [place] % (Auto) 10.1 % (2-11) 03/22/22 05:50 Eos % (Auto) 0.0 % (0-4) 03/22/22 05:50 Baso % (Auto) 0.4 % (0-2) 03/22/22 05:50 Lymph # (Auto) 0.9 X10*3/uL (1.2-4.9) L 03/22/22 05:50 [place] # (Auto) 0.8 X10*3/uL (0.1-1.2) 03/22/22 05:50 Eos # (Auto) 0.0 X10*3/uL (0.0-0.4) 03/22/22 05:50 Baso # (Auto) 0.0 X10*3/uL (0.0-0.2) 03/22/22 05:50 Abs Immat Gran (auto) 0.12 X10*3/uL (0.00-0.03) H 03/22/22 05:50 Absolute Neuts (auto) 6.4 x10*3/uL (2.0-8.3) 03/22/22 05:50 Absolute Nucleated RBC 0.000 X10*3/uL (0.0-0.012) 03/22/22 05:50 Nucleated RBC % (auto) 0.0 /100WBC (0.0-0.2) 03/22/22 05:50 D-Dimer High Sensitivty 369 NG/ML 03/13/22 13:04 VBG pH 7.46 (7.32-7.43) H 03/13/22 13:09 VBG pCO2 39 mmHg 03/13/22 13:09 VBG pO2 89 mmHg 03/13/22 13:09 VBG HCO3 28 mmol/L (22-26) H 03/13/22 13:09 VBG O2 Saturation 95.0 % 03/13/22 13:09 VBG Base Excess 4.3 mmol/L 03/13/22 13:09 Sodium 132 mmol/L (135-145) L 03/22/22 05:50 Potassium 4.7 mmol/L (3.3-5.1) 03/22/22 05:50 Chloride 100 mmol/L (96-108) 03/22/22 05:50 Carbon Dioxide 21 mmol/L (22-29) L 03/22/22 05:50 Anion Gap 16 (12-20) 03/22/22 05:50 BUN 34 mg/dL (9-16) H 03/22/22 05:50 Creatinine 4.92 mg/dL (0.5-1.4) H* 03/22/22 05:50 Estim Creat Clear Calc 17.4 03/22/22 05:50 Estimated GFR 12 03/22/22 05:50 POC Glucose 195 mg/dL (60-115) H 03/24/22 07:06 Random Glucose 167 mg/dL (60-115) H 03/19/22 11:13 Fasting Glucose 211 mg/dL (60-99) H 03/22/22 05:50 Lactic Acid 1.6 mmol/L (0.5-2.0) 03/13/22 13:02 Calcium 8.9 mg/dL (8.4-10.2) 03/22/22 05:50 Magnesium 1.9 mg/dL (1.6-2.6) 03/18/22 05:31 Iron 72 mcg/dL (45-160) 03/19/22 11:13 TIBC 226 mcg/dL (228-428) L 03/19/22 11:13 % Saturation 32 % (15-50) 03/19/22 11:13 Unsat Iron Binding 154 ug/dL 03/19/22 11:13 Ferritin 156 ng/mL (20-250) 03/19/22 11:13 Total Bilirubin 0.5 mg/dL (0.0-1.0) 03/22/22 05:50 AST 10 U/L (5-37) 03/22/22 05:50 ALT 13 U/L (0-40) 03/22/22 05:50 Alkaline Phosphatase 60 U/L (39-117) 03/22/22 05:50 Troponin I High Sens 70.7 ng/L (<3.5-35.0) H 03/13/22 15:13 B-Natriuretic Peptide 98 pg/mL (<100) 03/18/22 05:31 Total Protein 6.0 g/dL (6.5-8.0) L 03/22/22 05:50 Albumin 3.4 g/dL (3.5-5.0) L 03/22/22 05:50 Urine Osmolality 297 mosm/kg (373-1093) L 03/20/22 09:57 U Random Total Protein 133 mg/dL (<12) H 03/16/22 11:00 Ur Random Sodium 27.0 mmol/L 03/20/22 09:57 Ur Random Urea 311 mg/dL 03/16/22 11:00 Urine Creatinine 221.50 mg/dL 03/20/22 09:57 Urine Microalbumin > 2000.0 mg/L 03/20/22 09:57 Microalb/Creat Ratio 902.9 ug/mg cr 03/20/22 09:57 Hep Bs Antigen Negative (Negative) 03/18/22 05:31 Hep Bs Antibody NONREACTIVE (Nonreactive) 03/18/22 05:31 Hep B Core Total Ab Nonreactive (Nonreactive) 03/18/22 05:31 Influenza Type A (PCR) NEGATIVE (Negative) 03/13/22 12:44 Influenza Type B (PCR) NEGATIVE (Negative) 03/13/22 12:44 RSV RNA Qual (PCR) NEGATIVE (Negative) 03/13/22 12:44 SARS-CoV-2 RNA (RT-PCR) NEGATIVE (Negative) 03/13/22 12:44 Impressions Pulmonary Perfusion Imaging 03/13/22 14:35 IMPRESSION: Only mildly heterogeneous uptake without segmental defect. Findings consistent with low probability for pulmonary embolism. Chest X-Ray 03/19/22 13:23 IMPRESSION: Stable enlargement of the cardiac silhouette. No evidence for acute disease in the chest. 03/14/22 TTE - Normal left ventricular cavity size.? There is severely? increased left ventricular wall thickness.? The left ventricular systolic function is normal.? The visually estimated ejection? ? fraction is between 60-65%.? - Normal right ventricular cavity size and systolic function.? ? Discharge Plan Discharge Anticipated Discharge Date/Time: 03/24/22 10:54 Patient Disposition: Home Health Service Discharge Diagnosis: LAUREEN/CKD4, now ESRD CHF Referrals: [facility] [Outside] - 3-5 Days (HOME WITH [facility]) Haroldo Carreno MD [Physician] - 1 Week Darline Mcgrath NP [Nurse Practitioner] - 1 Week Discharge Medications: New carvedilol 3.125 mg Tablet 6.25 mg PO BID Qty: 60 0RF Protocol: Hold for SBP/HR < HOLD for SBP < : 90 HOLD for HR < : 60 Rx Instructions: replaces prior dose of 25 mg bid Continued multivitamin Tablet 1 tab PO DAILY atorvastatin 40 mg tablet 1 tab PO DAILY clonidine HCl 0.1 mg tablet 1 tab PO TID ipratropium-albuterol 0.5 mg-3 mg(2.5 mg base)/3 mL solution for nebulization 3 ml inhalation QID cetirizine 10 mg tablet 1 tab PO DAILY isosorbide mononitrate 30 mg tablet extended release 24 hr 1 tab PO DAILY sennosides-docusate sodium [Senna-S] 8.6-50 mg tablet 1 tab PO BEDTIME prednisone 5 mg tablet 12.5 mg PO DAILY aspirin 81 mg tablet,delayed release (DR/EC) 1 tab PO DAILY torsemide 100 mg tablet 1 tab PO DAILY tamsulosin 0.4 mg capsule 1 cap PO DAILY dapsone 100 mg tablet 1 tab PO DAILY ferrous sulfate [FeroSul] 325 mg (65 mg iron) tablet 325 mg PO TID clotrimazole-betamethasone 1-0.05 % cream 1 appl topical BID omeprazole 20 mg capsule,delayed release(DR/EC) 1 cap PO DAILY albuterol sulfate 90 mcg/actuation HFA aerosol inhaler 2 inh inhalation Q4H PRN (Reason: Wheezing) fluticasone propionate 50 mcg/actuation spray,suspension 1 spray intranasal DAILY insulin aspart U-100 [Novolog Flexpen U-100 Insulin] 100 unit/mL (3 mL) insulin pen See Rx Instructions .ROUTE .COMPLEX Rx Instructions: TID AC BG 130-179 13U BG 180-229 16U BG 230-279 19U BG 280-329 22 U BG 330-379 25 U BG 380-429 29U duloxetine 30 mg capsule,delayed release(DR/EC) 1 cap PO DAILY cholecalciferol (vitamin D3) 25 mcg (1,000 unit) tablet 1 tab PO DAILY Januvia 25 mg tablet 1 tab PO DAILY insulin glargine [Lantus Solostar U-100 Insulin] 100 unit/mL (3 mL) insulin pen 50 unit subcut DAILY buprenorphine 10 mcg/hour patch weekly 1 patch topical QWEEK Entresto 49-51 mg tablet 1 tab PO BID Discontinued carvedilol 25 mg tablet 1 tab PO BID hydralazine 25 mg tablet 1 tab PO TID Discharge Orders: Discharge Order (Routine); Ordered 03/24/22 Ordered By: Wallace Fischer Diet: Diabetic diet Activity on Discharge: As tolerated Stand Alone Forms: Patient Portal Discharge page Care Plan Goals: avoid volume overload Health Concerns: LAUREEN/CKD4, now ESRD CHF Plan of Treatment: dialysis MWF stop hydralazine, decrease carvedilol from 25 to 6.25 mg twice daily; otherwise, continue all other medications low-sodium diabetic diet; work on control of your blood sugar to avoid further complications of diabetes Please follow up with your primary care doctor within 1 week. Return to the hospital if you experience recurrent or worsening symptoms. Assessment: See Discharge Summary.
--- NOTE | 2022-03-24 11:26 | W.MHC.F2F ---
Service Date Service Date: 03/24/22 Encounter Date of encounter: 03/24/22 Reasons for Services Signs and symptoms assessed: volume status CHF ESRD Reason for shelter: medication management, medication treatment and teach disease management Reason for physical therapy: home safety and mobility, therapeutic exercises, restore joint function, gait/transfer training, assess need for DME, ADL training and energy conservation MD Overseeing Care: Darline Mcgrath Homebound: Leaving the home is medically contraindicated at this time without the asist of a device and/or another person due th the listed conditions above and below. Reason homebound: shortness of breath with minimal effort and weakness related to hospital stay Certification: Based on the above findings, I certify that this patient is confined to the home and needs intermittent shelter care, physical therapy and/or speech therapy, or continues to need occupational therapy. The patient is under my care, and I have initiated the establishment of the plan of care. The patient will be followed by a physician who will periodically review the plan of care. Time Spent With Patient Time: Total time managing care of this patient today ____ minutes.
--- NOTE | 2022-03-24 11:38 | MHC.CM.PN ---
Addendum entered by Angeli Sorto 03/24/22 13:25: MESSAGE LEFT FOR [facility] ATTENDANT DORIS C TO REQUEST REACHING OUT TO [facility]END[facility] TO ASSIST PT WITH RIDES TO DIALYSIS. PT IS AWARE WELL TO REACH OUT TO INSURANCE. Addendum entered by Angeli Sorto 03/24/22 11:42: [facility] UPDATED ON DC. Original Note: DP: PT MEDICALLY CLEARED FOR DC HOME AFTER DIALYSIS. RN MADE AWARE. BLS TRANSPORT SET UP FOR 4 PM TO RESIDENCE.
--- NOTE | 2022-03-24 11:39 | PM.PNNEP ---
Subjective Subjective Date of Service: 03/24/22 Principal diagnosis: CHF, renal failure Interval history: seen and examined on dialysis no complaints Physical Exam Vital Signs: Vital Signs: Last Vital Signs Temp 98 F 03/24/22 07:06 Pulse 83 03/24/22 07:06 Resp 20 03/24/22 07:06 BP 115/55 L 03/24/22 07:06 Pulse Ox 98 03/24/22 07:06 O2 Del Method 03/24/22 07:06 O2 Flow Rate 2 03/23/22 11:10 BMI result Body Mass Index 41.5 Const: General: comfortable and no acute distress HEENT: Head: Yes normocephalic and Yes atraumatic Neck: Neck: Yes supple Resp: Auscultation: diminished lung sounds Cardio: Heart sounds: S1 normal heart sound present and S2 normal heart sound present GI: Palpation (GI): Soft to palpation and nontender Extrem: General: Yes edema Objective Data Labs CBC & Chem 7: 03/22/22 05:50 03/22/22 05:50 Labs: Laboratory Results - last 24 hr 03/23/22 03/23/22 03/24/22 16:28 19:56 07:06 POC Glucose 274 H 206 H 195 H Microbiology Microbiology Results: Microbiology 03/13/22 13:02 Blood - Venous Blood Culture - Final No growth after 5 days. 03/13/22 13:02 Blood - Venous Blood Culture - Final No growth after 5 days. Procedures Date of Service Date of Service: 03/24/22 Assessment & Plan Assessment and plan (1) Acute kidney injury: Status: Acute (2) HFrEF (heart failure with reduced ejection fraction): Status: Acute (3) Anemia: Status: Acute (4) CKD (chronic kidney disease) stage 4, GFR 15-29 ml/min: Status: Acute Plan LAUREEN super imposed on advanced CKD due to DM/HTN probably now ESRD h/o HFrEF and diastolic dysfunction BP on the low side off hydralazine PLAN discontinue clonidine if BP remains low HD today UF as tolerated renal diet phosphate binders outpatient HD arranged at [place] HD unit first shift Time Spent With Patient Time: Total time managing care of this patient today ____ minutes. Progress Note: Quality Stroke Does the patient have a stroke diagnosis?: No
[2022-03-24 14:34] LABS: Glucose, Whole Blood 294 mg/dL (60-115)
[2022-03-24 14:49] VITALS: BP 125/58; PULSE 84; RESP 16; TEMP 36.2; O2SAT 95
[2022-03-24 16:20] LABS: Glucose, Whole Blood 305 mg/dL (60-115)
[2022-03-25 14:48] LABS: Kappa Light Chain, Free Serum 52.5 mg/L (3.3-19.4); Kappa/Lambda Lt Ch Free Ratio 0.96 (0.26-1.65); Lambda Light Chain, Free Serum 54.6 mg/L (5.7-26.3)
== END 2022-03-24 16:20 | disposition home health service (06) | DRG 291 ==
LOC: HO.ED 15:28 → HO.EDOVER 17:20 → HO.IMC 21:58
PROVIDERS: Hospitalist; Internal Medicine Nephrology; Physician Assistant Medical; Admitting Provider Family Medicine; Emergency Provider Emergency Medicine; Visit Provider Family Medicine
DX: I13.2 Hypertensive heart and chronic kidney disease with heart failure and with stage 5 chronic kidney disease, or end stage renal disease (principal); I50.23 Acute on chronic systolic (congestive) heart failure; J96.01 Acute respiratory failure with hypoxia; N18.6 End stage renal disease; N18.4 Chronic kidney disease, stage 4 (severe); N17.9 Acute kidney failure, unspecified; E66.2 Morbid (severe) obesity with alveolar hypoventilation; Z68.41 Body mass index [BMI] 40.0-44.9, adult; I42.8 Other cardiomyopathies; E11.22 Type 2 diabetes mellitus with diabetic chronic kidney disease; E11.65 Type 2 diabetes mellitus with hyperglycemia; D63.1 Anemia in chronic kidney disease; L40.0 Psoriasis vulgaris; I77.6 Arteritis, unspecified; Z20.822 Contact with and (suspected) exposure to COVID-19; Z86.73 Personal history of transient ischemic attack (TIA), and cerebral infarction without residual deficits; Z89.511 Acquired absence of right leg below knee; Z79.4 Long term (current) use of insulin; Z79.51 Long term (current) use of inhaled steroids; Z79.52 Long term (current) use of systemic steroids; Z79.82 Long term (current) use of aspirin; Z79.899 Other long term (current) drug therapy
CPT/HCPCS: 0241U; 36415; 71045; 78580; 80048; 80053; 82043; 82728; 82803; 82947; 83521; 83540; 83605; 83735; 83880; 83935; 84156; 84300; 84484; 84540; 85025; 85027; 85379; 86704; 86706; 87040; 87340; 90999; 93005; 93306; 94660; 97162; 97530; 99285; A9540; J0885; J1205; J1940; J2405; J3475; Q9957